=== PATIENT | male | born 1945 | race Caucasian/White ===

== ENCOUNTER → 2016-07-29 | Outpatient (CLI) | payer OTHER ==
[~2016-07-29] MED LIST: ALPR0.25 PO; AZEL0.05; BESI0.6S OU; DOXA4TAB2 PO; FLOM5CAP PO; FLUTISP; GABA-279 PO; LEVO125T3 PO; NORT25CA2 PO; OMEP20TA PO; OXYB5TA PO; PREDOPD OD; PROL0.072 OU; REST0.05 OU; TAMS0.4C2 PO; VITA-112 PO; VITA250L PO; prednisone OU
--- NOTE | 2016-07-29 14:44 | REP ---
Clinical: Preoperative assessment. Benign prostatic hypertrophy. Comparison: 10/01/2007 . Technique: PA and lateral. Findings: The mediastinum and cardiac silhouette are normal. The lung santa are clear and without acute consolidation, effusion, or pneumothorax. The skeletal structures are intact and normal. Impression: 1. No acute cardiopulmonary process. Signed by Hugo Anglin MD 07/29/2016 02:35 P
[2016-07-29 17:23] LABS: MEAN CORPUSCULAR HEMOGLOBIN 30.3 pg (27.0-33.0); MEAN CORPUSCULAR VOLUME 86.6 fl (80.0-96.0); RED CELL DISTRIBUTION WIDTH 13.3 % (11.5-14.5); WHITE BLOOD COUNT 6.8 K/mm3 (4.0-10.0)
[2016-07-29 17:48] LABS: INR 0.98
[2016-07-29 18:38] LABS: ANION GAP 8 MEQ/L (8-16); BLOOD UREA NITROGEN 18 MG/DL (7-18); CALCIUM LEVEL 9.7 MG/DL (8.8-10.2); CARBON DIOXIDE LEVEL 30 MEQ/L (21-32); CHLORIDE LEVEL 104 MEQ/L (98-107); CREATININE FOR GFR 1.07 MG/DL (0.70-1.30); GLOMERULAR FILTRATION RATE > 60.0 (>49); GLUCOSE, FASTING 85 MG/DL (80-110); SODIUM LEVEL 142 MEQ/L (136-145)
== END ==
LOC: M SMT 13:34
PROVIDERS: ATTEND Urology
DX: Z01.818 Encounter for other preprocedural examination (principal); N40.1 Benign prostatic hyperplasia with lower urinary tract symptoms

== ENCOUNTER → 2016-08-06 | Day surgery (SDC) | payer OTHER ==
[~2016-08-06] VITALS: Ht 182.9 cm; Wt 104.3 kg
[~2016-08-06] MED LIST changes: +ACETAMINOPHEN TAB 650MG DOSE (2X325MG) PO PRN; +FUROSEMIDE 100 MG/10 ML VIAL (J1940) As Ordered ONE; +LIDOCAINE 2% INJ 100 MG/5 ML SDV (FOR ANES.) As Ordered ONE; +LR 1,000 ML IV SCH; +MIDAZOLAM INJ 2 MG/2 ML VIAL (J2250) As Ordered ONE; +ONDANSETRON 4MG/2ML VIAL (J2405) As Ordered ONE; +ONDANSETRON 4MG/2ML VIAL (J2405) IV PRN; +PERCOCET 5MG/325MG TAB As Ordered ONE; +PHENYLephrine HCL 500 MCG/5 ML (100MCG/ML) SYRINGE (J2370) As Ordered ONE; +PROPOFOL 200 MG/20 ML VIAL As Ordered ONE; +SEVOFLURANE INHAL SOLN 250 ML BTL As Ordered ONE; +dexameTHASONE 4 MG/ML 1ML VIAL (J1100) As Ordered ONE; +ePHEDrine SULFATE 25 MG/5 ML(5MG/ML) SYRINGE As Ordered ONE; +fentaNYL 100 MCG/2 ML INJECTION (J3010) IV PRN; +fentaNYL 250 MCG/5 ML INJECTION (J3010) As Ordered ONE; +oxyBUTYnin 5 MG TAB PO PRN
[2016-08-06] MEDS: PERCOCET 5MG/325MG TAB PO PRN ×2 (18:48→19:21)
[2016-08-06 21:50] VITALS: BP 143/89
--- NOTE | 2016-08-07 09:47 | RO ---
DATE OF PROCEDURE: 08/06/2016 PREPROCEDURE DIAGNOSIS: Benign prostatic hyperplasia with urinary retention. POSTPROCEDURE DIAGNOSIS: Benign prostatic hyperplasia with urinary retention. PROCEDURE: Cystoscopy, button transurethral electrovaporization of the prostate. SURGEON: Sterling Black MD HAND SCUDDER: None. ANESTHESIA: General. OPERATIVE INDICATIONS: This is a 70-year-old male with benign prostatic hyperplasia with urinary retention. He has failed medical therapy and therefore it was recommended he be brought to the operating room today for the above listed procedure. DESCRIPTION OF PROCEDURE: The patient brought to the operating room and general anesthesia was induced. Prophylactic antibiotics were infused. He was then placed in a dorsal lithotomy position and prepped and draped in the usual sterile fashion. At this point, a resectoscope was inserted into the urethral meatus and advanced to the bladder using the visual obturator. At this point, the bladder was examined and of note, ureteral orifices were not close to the bladder neck. I also made note of the location of verumontanum. Also of note, the patient had trilobar benign prostatic hyperplasia with a prominent median lobe. At this point, I began vaporizing hyperplastic tissue beginning first on the median lobe and then circumferentially at the bladder neck. I then continued to vaporize hyperplastic tissue in both lateral lobes and kept doing this until there was a clear channel established. Throughout the procedure I tried not to vaporize too close to the ureteral orifices or distal to the verumontanum. Once a clear channel was established, hemostasis was obtained using the coagulation current. Once hemostasis appeared to be good, this marked conclusion of the procedure. At this point, the button resectoscope was removed and an #18 [place] Abbott catheter was inserted into the bladder. The balloon was filled with 15 mL of sterile water and urine drained clear at the end of the procedure. The catheter was then connected to gravity drainage and this marked conclusion of the procedure. The patient was then taken out of dorsal lithotomy position, awakened from anesthesia and transported to the recovery room in stable condition. Estimated blood loss: 25 mL. Complications: None. Specimens: None. Plan: The patient will be discharged home with a catheter in place. He will followup in the clinic next week for catheter removal and voiding trial.
== END | disposition home or self-care (01) ==
LOC: M SDC 10:46
PROVIDERS: ATTEND Urology
DX: N40.1 Benign prostatic hyperplasia with lower urinary tract symptoms (principal); I12.9 Hypertensive chronic kidney disease with stage 1 through stage 4 chronic kidney disease, or unspecified chronic kidney disease; K21.9 Gastro-esophageal reflux disease without esophagitis; K44.9 Diaphragmatic hernia without obstruction or gangrene; G25.81 Restless legs syndrome; K76.0 Fatty (change of) liver, not elsewhere classified; E08.40 Diabetes mellitus due to underlying condition with diabetic neuropathy, unspecified; F41.9 Anxiety disorder, unspecified; E78.5 Hyperlipidemia, unspecified; K64.8 Other hemorrhoids; J30.9 Allergic rhinitis, unspecified; H93.19 Tinnitus, unspecified ear; K57.32 Diverticulitis of large intestine without perforation or abscess without bleeding; M12.9 Arthropathy, unspecified; N18.2 Chronic kidney disease, stage 2 (mild); E06.3 Autoimmune thyroiditis; Z79.899 Other long term (current) drug therapy; Z87.442 Personal history of urinary calculi; Z96.1 Presence of intraocular lens
CPT/HCPCS: 52601; J0690; J1100; J1940; J2250; J2370; J2405; J3010

== ENCOUNTER → 2016-09-03 | Outpatient (CLI) | payer OTHER ==
[~2016-09-03] MED LIST changes: -ACETAMINOPHEN TAB 650MG DOSE (2X325MG) PO PRN; -FUROSEMIDE 100 MG/10 ML VIAL (J1940) As Ordered ONE; -LIDOCAINE 2% INJ 100 MG/5 ML SDV (FOR ANES.) As Ordered ONE; -LR 1,000 ML IV SCH; -MIDAZOLAM INJ 2 MG/2 ML VIAL (J2250) As Ordered ONE; -ONDANSETRON 4MG/2ML VIAL (J2405) As Ordered ONE; -ONDANSETRON 4MG/2ML VIAL (J2405) IV PRN; -PERCOCET 5MG/325MG TAB As Ordered ONE; -PHENYLephrine HCL 500 MCG/5 ML (100MCG/ML) SYRINGE (J2370) As Ordered ONE; -PROPOFOL 200 MG/20 ML VIAL As Ordered ONE; -SEVOFLURANE INHAL SOLN 250 ML BTL As Ordered ONE; -dexameTHASONE 4 MG/ML 1ML VIAL (J1100) As Ordered ONE; -ePHEDrine SULFATE 25 MG/5 ML(5MG/ML) SYRINGE As Ordered ONE; -fentaNYL 100 MCG/2 ML INJECTION (J3010) IV PRN; -fentaNYL 250 MCG/5 ML INJECTION (J3010) As Ordered ONE; -oxyBUTYnin 5 MG TAB PO PRN
--- NOTE | 2016-09-04 16:53 | SLEEPHOME ---
DATE OF PROCEDURE: 09/03/2016 ORDERED BY: Dr. Negron Diagnostic home sleep testing was performed due to concern for the obstructive sleep apnea syndrome. For testing, a NOX-T3 respiratory monitoring device was used. Continuous record was made of pulse, oxygen saturation, air flow, chest and abdominal strain and body position. 9 hours and 59 minutes of data were reviewed. Of these, 9 hours and 10 minutes were marked as time in bed. During the interval marked time in bed, there were 288 respiratory events identified of 10 seconds in duration or greater. The events were primarily obstructive but significant mixed and central apneas were also seen. Baseline pulse rate 59 beats per minute. Pulse rate ranged 47 to 102. Baseline oxygen saturation 90%. Lowest oxygen saturation 78%. Testing was performed in both the supine and nonsupine positions. IMPRESSION: Severe, possibly complex obstructive sleep apnea syndrome is suggested based on repetitive respiratory events with oxygen desaturations to 78% and a respiratory event index of 31.4. RECOMMENDATION: The patient should be referred for formal sleep evaluation and in laboratory pressure titration.
== END ==
LOC: M SLEEP HO 09:59
PROVIDERS: ATTEND Family Medicine
DX: G47.33 Obstructive sleep apnea (adult) (pediatric) (principal)

== ENCOUNTER → 2016-10-08 | Outpatient (REF) | payer OTHER | LOC: M SMT 13:03 | PROVIDERS: ATTEND Nurse Practitioner Family | DX: R35.0 Frequency of micturition (principal) ==

== ENCOUNTER → 2016-10-10 | Outpatient (REF) | payer OTHER ==
[2016-10-10 14:17] LABS: COMPLEMENT C4 23.8 MG/DL (10-40); IMMUNOGLOBULIN E 33.4 IU/ML (<100); IMMUNOGLOBULIN M 41.2 MG/DL (40-230)
== END ==
LOC: M LABDRAWP 12:59
PROVIDERS: ATTEND Allergy & Immunology
DX: R05 Cough (principal); H10.45 Other chronic allergic conjunctivitis; J30.89 Other allergic rhinitis

== ENCOUNTER → 2016-10-10 | Outpatient (REF) | payer OTHER | LOC: M SFHCPLAZ 09:34 | PROVIDERS: ATTEND Family Medicine | DX: N40.1 Benign prostatic hyperplasia with lower urinary tract symptoms (principal); N18.2 Chronic kidney disease, stage 2 (mild) ==

== ENCOUNTER → 2016-11-07 | Outpatient (CLI) | payer MEDICARE, OTHER ==
--- NOTE | 2016-11-17 08:26 | SLEEPCENT ---
DATE OF PROCEDURE: 11/07/2016 REQUESTING PROVIDER: Faye Acevedo NP INTERPRETATION: Nocturnal polysomnography was performed for the titration of pressure therapy in this patient with a clinical diagnosis of obstructive sleep apnea syndrome, supported by home testing revealing a respiratory event index of 31. For testing, the patient was fit with a ResMed Quattro full face mask of medium size, 5 cm of water pressure were applied to the circuit and the lights were extinguished. 7 hours and 29 minutes of data were reviewed. There were 332 minutes of sleep identified. Sleep latency was prolonged at 70 minutes. Rapid eye movement (REM) latency was short at 42 minutes. Sleep architecture was good with four REM periods appreciated. Overall sleep efficiency was 74%. Electrocardiogram (EKG) showed a sinus rhythm with an average heart rate of 48 beats per minute. Electroencephalogram (EEG) showed reasonably normal waveforms for awake and sleep. Respiratory events were fully palliated with a continuous positive airway pressure (CPAP) to a pressure of +9. Some limb activity was noted. Limb movement arousals occurred only 3.3 times per hour. IMPRESSION: 1. Obstructive sleep apnea syndrome (G47.33). RECOMMENDATIONS: Nightly use of pressure therapy at 9 cm of water.
== END ==
LOC: M SLEEP 20:06
PROVIDERS: ATTEND Nurse Practitioner Adult Health
DX: G47.33 Obstructive sleep apnea (adult) (pediatric) (principal)

== ENCOUNTER → 2017-01-26 | Outpatient (REF) | payer OTHER ==
[~2017-01-26] MED LIST changes: -LEVO125T3 PO; +LEVO125T4 PO; -OXYB5TA PO; +OXYB5TAB10 PO
[2017-01-26 12:19] LABS: ALBUMIN 3.6 GM/DL (3.2-5.2); ALKALINE PHOSPHATASE 69 U/L (45-117); ALT/SGPT 24 U/L (12-78); ANION GAP 7 MEQ/L (8-16); AST/SGOT 34 U/L (15-37); BILIRUBIN,TOTAL 1.5 MG/DL (0.2-1.0); BLOOD UREA NITROGEN 15 MG/DL (7-18); CALCIUM LEVEL 8.7 MG/DL (8.8-10.2); CARBON DIOXIDE LEVEL 29 MEQ/L (21-32); CHLORIDE LEVEL 108 MEQ/L (98-107); CHOLESTEROL LEVEL 158 MG/DL (<200); CREATININE FOR GFR 1.01 MG/DL (0.70-1.30); FREE T4 1.26 NG/DL (0.76-1.46); GLOMERULAR FILTRATION RATE > 60.0 (>42); GLUCOSE, FASTING 97 MG/DL (83-110); POTASSIUM SERUM 4.2 MEQ/L (3.5-5.1); SODIUM LEVEL 144 MEQ/L (136-145); TOTAL PROTEIN 7.2 GM/DL (6.4-8.2); TRIGLYCERIDES LEVEL 204 MG/DL (<150)
== END ==
LOC: M SFHCPLAZ 08:19
PROVIDERS: ATTEND Family Medicine
DX: N18.2 Chronic kidney disease, stage 2 (mild) (principal); E78.5 Hyperlipidemia, unspecified; E03.9 Hypothyroidism, unspecified

== ENCOUNTER → 2017-03-19 | Outpatient (REF) | payer OTHER | LOC: M SMT 12:52 | PROVIDERS: ATTEND Nurse Practitioner Women's Health | DX: N40.1 Benign prostatic hyperplasia with lower urinary tract symptoms (principal) ==

== ENCOUNTER → 2017-06-11 | Outpatient (REF) | payer OTHER ==
[2017-06-11 12:11] LABS: BASO # 0.1 10^3/uL (0.0-0.2); BASO % 0.7 % (0.0-1.0); EOS # 0.2 10^3/uL (0.0-0.50); EOS % 2.4 % (0.0-3.0); HEMATOCRIT 44.7 % (42.0-52.0); HEMOGLOBIN 15.2 g/dl (14.0-18.0); IMMATURE GRANULOCYTE % 0.6 % (0-0); LYMPH # 1.4 10^3/uL (1.5-4.5); LYMPH % 20.2 % (24.0-44.0); MEAN CORPUSCULAR HEMOGLOBIN 29.7 pg (27.0-33.0); MEAN CORPUSCULAR VOLUME 87.5 fl (80.0-96.0); MONO # 0.4 10^3/uL (0.0-0.8); MONO % 5.7 % (0.0-5.0); NEUTROPHILS % 70.4 % (36.0-66.0); PLATELET COUNT, AUTOMATED 180 10^3/uL (150-450); RED BLOOD COUNT 5.11 10^6/uL (4.30-6.10); WHITE BLOOD COUNT 7.1 10^3/uL (4.0-10.0)
[2017-06-11 12:18] LABS: ALBUMIN 3.7 GM/DL (3.2-5.2); ALBUMIN/GLOBULIN RATIO 1.06 (1.00-1.93); ALKALINE PHOSPHATASE 84 U/L (45-117); ALT/SGPT 27 U/L (12-78); ANION GAP 5 MEQ/L (8-16); AST/SGOT 35 U/L (7-37); BILIRUBIN,TOTAL 1.5 MG/DL (0.2-1.0); BLOOD UREA NITROGEN 18 MG/DL (7-18); CALCIUM LEVEL 8.8 MG/DL (8.8-10.2); CARBON DIOXIDE LEVEL 31 MEQ/L (21-32); CHLORIDE LEVEL 107 MEQ/L (98-107); CREATININE FOR GFR 1.03 MG/DL (0.70-1.30); FERRITIN 118 NG/ML (26-388); GLOMERULAR FILTRATION RATE > 60.0 (>42); GLUCOSE, FASTING 97 MG/DL (83-110); IRON (FE) 124 UG/DL (65-175); PERCENT SATURATION 33.1 % (19.7-50.0); POTASSIUM SERUM 4.5 MEQ/L (3.5-5.1); SODIUM LEVEL 143 MEQ/L (136-145); TOTAL IRON BINDING CAPACITY 375 UG/DL (250-450); TOTAL PROTEIN 7.2 GM/DL (6.4-8.2)
[2017-06-11 12:20] LABS: ESTIMATED AVERAGE GLUCOSE 105 MG/DL (60-110); HEMOGLOBIN A1c 5.3 %
[2017-06-11 12:24] LABS: TOTAL 25(OH) VITAMIN D 32.5 NG/ML (30.0-100.0); VITAMIN B12 LEVEL 552 PG/ML (247-911)
== END ==
LOC: M SFHCPLAZ 08:58
DX: E53.8 Deficiency of other specified B group vitamins (principal); E55.9 Vitamin D deficiency, unspecified; R73.01 Impaired fasting glucose
CPT/HCPCS: 83550

== ENCOUNTER → 2017-08-05 | Outpatient (REF) | payer OTHER ==
[2017-08-05 13:07] LABS: BASO % 0.6 % (0.0-1.0); EOS # 0.1 10^3/uL (0.0-0.50); HEMATOCRIT 44.1 % (42.0-52.0); HEMOGLOBIN 15.3 g/dl (14.0-18.0); IMMATURE GRANULOCYTE % 0.5 % (0-3.0); LYMPH # 1.6 10^3/uL (1.5-4.5); MEAN CORPUSCULAR HEMOGLOBIN 29.8 pg (27.0-33.0); MEAN CORPUSCULAR HGB CONC 34.7 g/dl (32.0-36.5); MONO # 0.4 10^3/uL (0.0-0.8); MONO % 5.8 % (0.0-5.0); NEUTROPHILS # 4.4 10^3/uL (1.8-7.7); NEUTROPHILS % 67.1 % (36.0-66.0); PLATELET COUNT, AUTOMATED 143 10^3/uL (150-450); RED BLOOD COUNT 5.13 10^6/uL (4.30-6.10); RED CELL DISTRIBUTION WIDTH 13.7 % (11.5-14.5); WHITE BLOOD COUNT 6.5 10^3/uL (4.0-10.0)
[2017-08-05 13:28] LABS: ALBUMIN 3.7 GM/DL (3.2-5.2); ALBUMIN/GLOBULIN RATIO 1.06 (1.00-1.93); ALKALINE PHOSPHATASE 79 U/L (45-117); ALT/SGPT 24 U/L (12-78); ANION GAP 5 MEQ/L (8-16); AST/SGOT 35 U/L (7-37); BILIRUBIN,TOTAL 1.9 MG/DL (0.2-1.0); BLOOD UREA NITROGEN 17 MG/DL (7-18); CALCIUM LEVEL 9.1 MG/DL (8.8-10.2); CARBON DIOXIDE LEVEL 31 MEQ/L (21-32); CHLORIDE LEVEL 107 MEQ/L (98-107); CREATININE FOR GFR 0.98 MG/DL (0.70-1.30); GLOMERULAR FILTRATION RATE > 60.0 (>42); GLUCOSE, FASTING 94 MG/DL (70-100); LIPASE 166 U/L (73-393); POTASSIUM SERUM 4.3 MEQ/L (3.5-5.1); SODIUM LEVEL 143 MEQ/L (136-145); TOTAL PROTEIN 7.2 GM/DL (6.4-8.2)
[2017-08-06 10:25] LABS: H PYLORI SERUM QUANT IgG ABY 0.72 (0.00-0.79)
== END ==
LOC: M SFHCPLAZ 09:22
DX: R10.13 Epigastric pain (principal)
CPT/HCPCS: 83690

== ENCOUNTER → 2017-10-26 | Outpatient (REF) | payer OTHER ==
[2017-10-26 12:25] LABS: ESTIMATED AVERAGE GLUCOSE 105 MG/DL (60-110); HEMOGLOBIN A1c 5.3 %
[2017-10-26 12:38] LABS: ALBUMIN 3.7 GM/DL (3.2-5.2); ALBUMIN/GLOBULIN RATIO 1.06 (1.00-1.93); ALKALINE PHOSPHATASE 79 U/L (45-117); ALT/SGPT 27 U/L (12-78); ANION GAP 5 MEQ/L (8-16); AST/SGOT 33 U/L (7-37); BILIRUBIN,TOTAL 1.3 MG/DL (0.2-1.0); BLOOD UREA NITROGEN 19 MG/DL (7-18); C REACTIVE PROTEIN QUANTITATIV 0.37 MG/DL (0.00-0.30); CALCIUM LEVEL 8.8 MG/DL (8.8-10.2); CARBON DIOXIDE LEVEL 31 MEQ/L (21-32); CHLORIDE LEVEL 108 MEQ/L (98-107); CHOLESTEROL LEVEL 143 MG/DL (<200); CHOLESTEROL RISK RATIO 3.972 (<5); CPK CREATINE PHOSPHOKINASE 74 U/L (39-308); CREATININE FOR GFR 1.01 MG/DL (0.70-1.30); FREE T4 1.05 NG/DL (0.76-1.46); GLOMERULAR FILTRATION RATE > 60.0 (>42); GLUCOSE, FASTING 92 MG/DL (70-100); HDL CHOLESTEROL 36 MG/DL (>40); NON-HDL-C 107 MG/DL; POTASSIUM SERUM 4.4 MEQ/L (3.5-5.1); SODIUM LEVEL 144 MEQ/L (136-145); THYROID STIMULATING HORMONE 0.631 uIU/ML (0.358-3.740); TOTAL PROTEIN 7.2 GM/DL (6.4-8.2); TRIGLYCERIDES LEVEL 275 MG/DL (<150)
[2017-10-27 14:11] LABS: INSULIN LEVEL 14.6 uIU/mL (2.6-24.9)
== END ==
LOC: M SFHCPLAZ 09:21
DX: E03.9 Hypothyroidism, unspecified (principal); R73.01 Impaired fasting glucose

== ENCOUNTER → 2018-04-06 | Outpatient (REF) | payer OTHER ==
[2018-04-06 11:41] LABS: BASO % 0.7 % (0.0-1.0); EOS # 0.2 10^3/uL (0.0-0.50); EOS % 3.3 % (0.0-3.0); HEMATOCRIT 43.5 % (42.0-52.0); HEMOGLOBIN 14.6 g/dl (13.5-17.5); IMMATURE GRANULOCYTE % 0.3 % (0-3.0); LYMPH # 1.7 10^3/uL (1.5-4.5); LYMPH % 29.5 % (24.0-44.0); MEAN CORPUSCULAR HEMOGLOBIN 30.2 pg (27.0-33.0); MEAN CORPUSCULAR HGB CONC 33.6 g/dl (32.0-36.5); MEAN CORPUSCULAR VOLUME 89.9 fl (80.0-96.0); MONO # 0.4 10^3/uL (0.0-0.8); MONO % 6.5 % (0.0-5.0); NEUTROPHILS # 3.4 10^3/uL (1.8-7.7); NEUTROPHILS % 59.7 % (36.0-66.0); PLATELET COUNT, AUTOMATED 162 10^3/uL (150-450); RED BLOOD COUNT 4.84 10^6/uL (4.30-6.10); RED CELL DISTRIBUTION WIDTH 14.2 % (11.5-14.5); RETIC HEMOGLOBIN EQUIVALENT 35.1 pg (24-36); RETICULOCYTE # 116.6 10^9/L (17-77); RETICULOCYTE % 2.4 % (0.5-1.5); WHITE BLOOD COUNT 5.7 10^3/uL (4.0-10.0)
[2018-04-06 11:46] LABS: APPEARANCE, URINE HAZY (CLEAR); BACTERIA, URINE AUTO NEGATIVE (NEGATIVE); BILIRUBIN, URINE AUTO NEGATIVE (NEGATIVE); BLOOD, URINE BLOOD 1+ (NEGATIVE); COLOR, URINE YELLOW (YELLOW); GLUCOSE, URINE (UA) AUTO NEGATIVE (NEGATIVE); KETONE, URINE AUTO NEGATIVE (NEGATIVE); LEUKOCYTE ESTERASE, URINE AUTO 1+ (NEGATIVE); MUCUS, URINE SMALL (NEGATIVE); NITRITE, URINE AUTO NEGATIVE (NEGATIVE); PROTEIN, URINE AUTO NEGATIVE (NEGATIVE); RBC, URINE AUTO 2 /HPF (0-3); SPECIFIC GRAVITY URINE AUTO 1.024 (1.002-1.035); SQUAMOUS EPITHELIAL CELL UR AU 0 /HPF (0-6); WBC, URINE AUTO 25 /HPF (0-3)
[2018-04-06 12:04] LABS: ESTIMATED AVERAGE GLUCOSE 108 MG/DL (60-110); HEMOGLOBIN A1c 5.4 %
[2018-04-06 13:22] LABS: MALB URINE SIEMENS 51.9 MG/L; MAU/CREAT RATIO 18.1 MCG/MG (0.0-30.0)
== END ==
LOC: M SFHCPLAZ 08:56
DX: E53.8 Deficiency of other specified B group vitamins (principal); E03.9 Hypothyroidism, unspecified; R73.01 Impaired fasting glucose

== ENCOUNTER → 2018-08-17 | Outpatient (REF) | payer OTHER ==
[~2018-08-17] MED LIST changes: +FLOM0.4C39 PO; -FLOM5CAP PO; +GABA-1171 PO; -GABA-279 PO
== END ==
LOC: M SFHCPLAZ 13:21
PROVIDERS: ATTEND Nurse Practitioner Family
DX: R19.7 Diarrhea, unspecified (principal)

== ENCOUNTER → 2018-09-06 | Outpatient (REF) | payer OTHER ==
[2018-09-06 12:22] LABS: BASO # 0.1 10^3/uL (0.0-0.2); BASO % 0.8 % (0.0-1.0); EOS # 0.2 10^3/uL (0.0-0.50); EOS % 2.9 % (0.0-3.0); HEMOGLOBIN 14.4 g/dl (13.5-17.5); LYMPH # 1.4 10^3/uL (1.5-4.5); LYMPH % 23.3 % (24.0-44.0); MEAN CORPUSCULAR HEMOGLOBIN 29.5 pg (27.0-33.0); MEAN CORPUSCULAR HGB CONC 33.5 g/dl (32.0-36.5); MEAN CORPUSCULAR VOLUME 88.1 fl (80.0-96.0); MONO # 0.4 10^3/uL (0.0-0.8); MONO % 6.6 % (0.0-5.0); NEUTROPHILS # 3.9 10^3/uL (1.8-7.7); NEUTROPHILS % 65.9 % (36.0-66.0); PLATELET COUNT, AUTOMATED 158 10^3/uL (150-450); RED BLOOD COUNT 4.88 10^6/uL (4.30-6.10); WHITE BLOOD COUNT 5.9 10^3/uL (4.0-10.0)
[2018-09-06 12:45] LABS: ALBUMIN 3.7 GM/DL (3.2-5.2); ALT/SGPT 27 U/L (12-78); BILIRUBIN,TOTAL 1.4 MG/DL (0.2-1.0); BLOOD UREA NITROGEN 21 MG/DL (7-18); C REACTIVE PROTEIN QUANTITATIV < 0.30 MG/DL (0.00-0.30); CALCIUM LEVEL 8.9 MG/DL (8.8-10.2); CARBON DIOXIDE LEVEL 31 MEQ/L (21-32); CHLORIDE LEVEL 109 MEQ/L (98-107); CHOLESTEROL LEVEL 151 MG/DL (<200); CHOLESTEROL RISK RATIO 3.973 (<5); CREATININE FOR GFR 1.03 MG/DL (0.70-1.30); GLOMERULAR FILTRATION RATE > 60.0 (>42); GLUCOSE, FASTING 99 MG/DL (70-100); HDL CHOLESTEROL 38 MG/DL (>40); LDL CHOLESTEROL 77 MG/DL (<100); NON-HDL-C 113 MG/DL; POTASSIUM SERUM 4.4 MEQ/L (3.5-5.1); PTH INTACT 52.8 PG/ML (18.5-88.0); SODIUM LEVEL 144 MEQ/L (136-145); TOTAL 25(OH) VITAMIN D 27.2 NG/ML (30.0-100.0); TOTAL PROTEIN 7.2 GM/DL (6.4-8.2); TRIGLYCERIDES LEVEL 179 MG/DL (<150)
[2018-09-06 14:43] LABS: HEMOGLOBIN A1c 5.6 %
== END ==
LOC: M SFHCPLAZ 08:59
PROVIDERS: ATTEND Family Medicine
DX: N18.2 Chronic kidney disease, stage 2 (mild) (principal); R73.01 Impaired fasting glucose; Z12.5 Encounter for screening for malignant neoplasm of prostate; E55.9 Vitamin D deficiency, unspecified
CPT/HCPCS: 36415; 80053; 80061; 82306; 83036; 83970; 85025; 86140; G0103

== ENCOUNTER → 2018-11-22 | Outpatient (CLI) | payer OTHER ==
[~2018-11-22] MED LIST changes: +FLUT50SP12; -FLUTISP
--- NOTE | 2018-11-22 10:05 | REP ---
LEFT WRIST SERIES: Four views. HISTORY: Pain. FINDINGS: Four views of the left wrist demonstrate minimal spurring at the first carpometacarpal articulation. There is an accessory ossicle adjacent to the navicular multangular articulation. No acute fracture is seen. Overall mineralization pattern is normal. Study is otherwise unremarkable. IMPRESSION: Mild osteoarthritic changes. Accessory ossicle adjacent to the navicular multangular articulation. Electronically Signed by Mal Harden MD 11/22/2018 10:27 A
--- NOTE | 2018-11-22 10:05 | REP ---
LEFT HAND SERIES: Four views. HISTORY: Pain. FINDINGS: Four views of the left hand demonstrate overall normal mineralization. There is an accessory ossicle adjacent to the navicular multangular articulation. This is nonacute. Minimal osteoarthritis is seen at the 1st carpometacarpal and 1st IP joints. There is mild osteoarthritis at the DIP joints of all four fingers as well. IMPRESSION: Osteoarthritic changes. No acute bony abnormality. Electronically Signed by Mal Harden MD 11/22/2018 10:27 A
== END ==
LOC: M WUC 08:44
PROVIDERS: ATTEND Physician Assistant
DX: M19.042 Primary osteoarthritis, left hand (principal); M19.032 Primary osteoarthritis, left wrist; M25.542 Pain in joints of left hand

== ENCOUNTER 2018-11-23 14:11 | Emergency (ER) | payer OTHER ==
[~2018-11-23] VITALS: Ht 188 cm; Wt 84.1 kg
[2018-11-23 15:54] VITALS: BP 158/81
== END 2018-11-23 16:02 | disposition home or self-care (01) ==
LOC: M ED 14:11
DX: F43.0 Acute stress reaction (principal); E80.4 Gilbert syndrome; E78.5 Hyperlipidemia, unspecified; I10 Essential (primary) hypertension; N40.0 Benign prostatic hyperplasia without lower urinary tract symptoms; K21.9 Gastro-esophageal reflux disease without esophagitis; R10.13 Epigastric pain; E03.9 Hypothyroidism, unspecified; Z87.442 Personal history of urinary calculi; G25.81 Restless legs syndrome; Z87.891 Personal history of nicotine dependence; Z79.899 Other long term (current) drug therapy

== ENCOUNTER → 2018-11-29 | Outpatient (REF) | payer OTHER ==
[2018-11-29 14:10] LABS: APPEARANCE, URINE CLEAR (CLEAR); BACTERIA, URINE AUTO NEGATIVE (NEGATIVE); BILIRUBIN, URINE AUTO NEGATIVE (NEGATIVE); BLOOD, URINE BLOOD 1+ (NEGATIVE); COLOR, URINE YELLOW (YELLOW); GLUCOSE, URINE (UA) AUTO NEGATIVE (NEGATIVE); KETONE, URINE AUTO NEGATIVE (NEGATIVE); LEUKOCYTE ESTERASE, URINE AUTO TRACE (NEGATIVE); MUCUS, URINE SMALL (NEGATIVE); NITRITE, URINE AUTO NEGATIVE (NEGATIVE); PROTEIN, URINE AUTO NEGATIVE (NEGATIVE); RBC, URINE AUTO 2 /HPF (0-3); SPECIFIC GRAVITY URINE AUTO 1.019 (1.002-1.035); SQUAMOUS EPITHELIAL CELL UR AU 0 /HPF (0-6); WBC, URINE AUTO 3 /HPF (0-3)
== END ==
LOC: M SMT 13:31
PROVIDERS: ATTEND Nurse Practitioner Women's Health
DX: N13.2 Hydronephrosis with renal and ureteral calculous obstruction (principal)

== ENCOUNTER → 2019-02-10 | Outpatient (REF) | payer OTHER ==
[~2019-02-10] MED LIST changes: +AZEL1SPR3 NARES; +BRONCHW PO; +BUSP10TA PO; +CIPRODEX AD; +D 1010004 PO; +FLON1SPR NARES; +HYDR25TAB PO; +MECL1TAB31 PO; +OFLOSO; +OMEP-358 PO; -OMEP20TA PO; +OXYB-54 PO; +TELM1TAB33 PO
[2019-02-10 13:13] LABS: APPEARANCE, URINE CLOUDY (CLEAR); BACTERIA, URINE AUTO NEGATIVE (NEGATIVE); BILIRUBIN, URINE AUTO NEGATIVE (NEGATIVE); BLOOD, URINE BLOOD 3+ (NEGATIVE); COLOR, URINE YELLOW (YELLOW); GLUCOSE, URINE (UA) AUTO NEGATIVE (NEGATIVE); KETONE, URINE AUTO NEGATIVE (NEGATIVE); LEUKOCYTE ESTERASE, URINE AUTO 2+ (NEGATIVE); MUCUS, URINE SMALL (NEGATIVE); NITRITE, URINE AUTO NEGATIVE (NEGATIVE); PROTEIN, URINE AUTO 2+ mg/dL (NEGATIVE); RBC, URINE AUTO TNTC /HPF (0-3); SQUAMOUS EPITHELIAL CELL UR AU 0 /HPF (0-6); UROBILINOGEN, URINE AUTO 0.2 mg/dL (0.0-2.0); WBC, URINE AUTO 66 /HPF (0-3)
[2019-02-10 13:44] LABS: ALBUMIN 3.5 GM/DL (3.2-5.2); ALT/SGPT 21 U/L (12-78); BILIRUBIN,TOTAL 1.6 MG/DL (0.2-1.0); BLOOD UREA NITROGEN 21 MG/DL (7-18); CALCIUM LEVEL 9.1 MG/DL (8.8-10.2); CARBON DIOXIDE LEVEL 28 MEQ/L (21-32); CHLORIDE LEVEL 108 MEQ/L (98-107); CREATININE FOR GFR 1.12 MG/DL (0.70-1.30); FREE T4 1.16 NG/DL (0.76-1.46); GLOMERULAR FILTRATION RATE > 60.0 (>42); GLUCOSE, FASTING 97 MG/DL (70-100); SODIUM LEVEL 143 MEQ/L (136-145); THYROID STIMULATING HORMONE 0.536 uIU/ML (0.358-3.740); TOTAL PROTEIN 7.2 GM/DL (6.4-8.2)
[2019-02-10 14:12] LABS: MAU/CREAT RATIO 407.6 MCG/MG (0.0-30.0)
[2019-02-10 14:31] LABS: HEMOGLOBIN A1c 5.2 %
== END ==
LOC: M SFHCPLAZ 08:56
PROVIDERS: ATTEND Family Medicine
DX: R73.01 Impaired fasting glucose (principal); E03.9 Hypothyroidism, unspecified

== ENCOUNTER → 2019-02-17 | Outpatient (REF) | payer OTHER ==
[~2019-02-17] MED LIST changes: -AZEL1SPR3 NARES; -BRONCHW PO; -BUSP10TA PO; -CIPRODEX AD; -D 1010004 PO; -FLON1SPR NARES; -HYDR25TAB PO; -MECL1TAB31 PO; -OFLOSO; -OMEP-358 PO; +OMEP20TA PO; -OXYB-54 PO; -TELM1TAB33 PO
[2019-02-17 13:37] LABS: APPEARANCE, URINE CLEAR (CLEAR); BACTERIA, URINE AUTO NEGATIVE (NEGATIVE); BILIRUBIN, URINE AUTO NEGATIVE (NEGATIVE); BLOOD, URINE BLOOD 1+ (NEGATIVE); COLOR, URINE STRAW (YELLOW); GLUCOSE, URINE (UA) AUTO NEGATIVE (NEGATIVE); KETONE, URINE AUTO NEGATIVE (NEGATIVE); LEUKOCYTE ESTERASE, URINE AUTO NEGATIVE (NEGATIVE); MUCUS, URINE SMALL (NEGATIVE); NITRITE, URINE AUTO NEGATIVE (NEGATIVE); PROTEIN, URINE AUTO NEGATIVE (NEGATIVE); RBC, URINE AUTO 3 /HPF (0-3); SPECIFIC GRAVITY URINE AUTO 1.006 (1.002-1.035); SQUAMOUS EPITHELIAL CELL UR AU 0 /HPF (0-6); UROBILINOGEN, URINE AUTO 0.2 mg/dL (0.0-2.0); WBC, URINE AUTO 3 /HPF (0-3)
[2019-02-17 13:46] LABS: BASO # 0.1 10^3/uL (0.0-0.2); EOS # 0.1 10^3/uL (0.0-0.5); EOS % 2.3 % (0.0-3.0); LYMPH # 1.5 10^3/uL (1.5-5.0); LYMPH % 25.1 % (24.0-44.0); MEAN CORPUSCULAR HEMOGLOBIN 30.4 pg (27.0-33.0); MEAN CORPUSCULAR HGB CONC 34.1 g/dl (32.0-36.5); MEAN CORPUSCULAR VOLUME 88.9 fl (80.0-96.0); MONO # 0.3 10^3/uL (0.0-0.8); MONO % 5.7 % (0.0-5.0); NEUTROPHILS # 3.8 10^3/uL (1.5-8.5); NEUTROPHILS % 65.4 % (36.0-66.0); PLATELET COUNT, AUTOMATED 179 10^3/uL (150-450); RED BLOOD COUNT 4.61 10^6/uL (4.30-6.10); WHITE BLOOD COUNT 5.8 10^3/uL (4.0-10.0)
[2019-02-17 14:05] LABS: ALBUMIN 3.6 GM/DL (3.2-5.2); ALT/SGPT 22 U/L (12-78); BILIRUBIN,TOTAL 1.2 MG/DL (0.2-1.0); BLOOD UREA NITROGEN 14 MG/DL (7-18); CALCIUM LEVEL 9.1 MG/DL (8.8-10.2); CARBON DIOXIDE LEVEL 31 MEQ/L (21-32); CHLORIDE LEVEL 105 MEQ/L (98-107); CREATININE FOR GFR 1.02 MG/DL (0.70-1.30); GLOMERULAR FILTRATION RATE > 60.0 (>42); GLUCOSE, FASTING 81 MG/DL (70-100); POTASSIUM SERUM 4.1 MEQ/L (3.5-5.1); SODIUM LEVEL 143 MEQ/L (136-145); TOTAL PROTEIN 7.1 GM/DL (6.4-8.2)
== END ==
LOC: M SFHCPLAZ 11:53
PROVIDERS: ATTEND Family Medicine
DX: N20.0 Calculus of kidney (principal)

== ENCOUNTER 2019-06-13 16:05 | Emergency (ER) | payer OTHER ==
[~2019-06-13] VITALS: Ht 182.9 cm; Wt 100.5 kg
[~2019-06-13 16:05] MED LIST changes: +BUSP10TA PO; +CIPRODEX AD; +OFLOSO; +OMEP-358 PO; -OMEP20TA PO; +TELM1TAB33
[2019-06-13] MEDS ORDERED: AZEL1SPR3 (17:09)
[2019-06-13 17:14] LABS: BASO # 0.1 10^3/uL (0.0-0.2); BASO % 0.6 % (0.0-1.0); EOS # 0.1 10^3/uL (0.0-0.5); HEMATOCRIT 45.8 % (42.0-52.0); HEMOGLOBIN 15.4 g/dl (13.5-17.5); LYMPH # 1.2 10^3/uL (1.5-5.0); LYMPH % 14.2 % (24.0-44.0); MEAN CORPUSCULAR HEMOGLOBIN 29.1 pg (27.0-33.0); MEAN CORPUSCULAR HGB CONC 33.6 g/dl (32.0-36.5); MEAN CORPUSCULAR VOLUME 86.6 fl (80.0-96.0); MONO # 0.6 10^3/uL (0.0-0.8); MONO % 6.7 % (0.0-5.0); NEUTROPHILS # 6.4 10^3/uL (1.5-8.5); NEUTROPHILS % 77.3 % (36.0-66.0); PLATELET COUNT, AUTOMATED 173 10^3/uL (150-450); RED BLOOD COUNT 5.29 10^6/uL (4.30-6.10); WHITE BLOOD COUNT 8.3 10^3/uL (4.0-10.0)
[2019-06-13 17:38] LABS: ALBUMIN 3.8 GM/DL (3.2-5.2); ALT/SGPT 24 U/L (12-78); BILIRUBIN,TOTAL 1.4 MG/DL (0.2-1.0); BLOOD UREA NITROGEN 15 MG/DL (7-18); CALCIUM LEVEL 9.8 MG/DL (8.8-10.2); CARBON DIOXIDE LEVEL 29 MEQ/L (21-32); CHLORIDE LEVEL 105 MEQ/L (98-107); CREATININE FOR GFR 1.12 MG/DL (0.70-1.30); GLOMERULAR FILTRATION RATE > 60.0 (>42); GLUCOSE, FASTING 98 MG/DL (70-100); SODIUM LEVEL 143 MEQ/L (136-145); TOTAL PROTEIN 8.1 GM/DL (6.4-8.2)
--- NOTE | 2019-06-13 17:43 | REPVR ---
PROCEDURE INFORMATION: Exam: CT Head Without Contrast Exam date and time: 06/13/2019 5:17 PM Age: 73 years old Clinical indication: Pain; Headache; Additional info: Dizziness TECHNIQUE: Imaging protocol: Computed tomography of the head without contrast. Radiation optimization: All CT scans at this facility use at least one of these dose optimization techniques: automated exposure control; mA and/or kV adjustment per patient size (includes targeted exams where dose is matched to clinical indication); or iterative reconstruction. COMPARISON: No relevant prior studies available. FINDINGS: Brain: There is parenchymal volume loss. Mild white matter changes are demonstrated in the subcortical, centrum semiovale and periventricular white matter consistent with age related small vessel white matter angiopathic gliosis. Ventricles: The degree of ventricular dilatation is normal for age and/or degree of atrophy present. Bones/joints: Unremarkable. No acute fracture. Sinuses: Visualized sinuses are unremarkable. No fluid levels. Mastoid air cells: Visualized mastoid air cells are well aerated. Soft tissues: Unremarkable. IMPRESSION: 1. There is parenchymal volume loss. Mild white matter changes are demonstrated in the subcortical, centrum semiovale and periventricular white matter consistent with age related small vessel white matter angiopathic gliosis. 2. The degree of ventricular dilatation is normal for age and/or degree of atrophy present. 3. No acute findings. Electronically signed by: James Stanford On 06/13/2019 17:42:48 PM
[2019-06-13 17:58] LABS: CK-MB VALUE MASS < 1.0 NG/ML (<3.6); CPK CREATINE PHOSPHOKINASE 54 U/L (39-308); MB/CK RELATIVE INDEX 1.85 (< OR =4); TROPONIN I < 0.02 NG/ML (< 0.10)
--- NOTE | 2019-06-13 20:35 | REPVR ---
PROCEDURE INFORMATION: Exam: MR Head Without Contrast Exam date and time: 06/13/2019 8:21 PM Age: 73 years old Clinical indication: Patient HX: Dizziness and high blood pressure TECHNIQUE: Imaging protocol: MR of the head without contrast. COMPARISON: CT Head without contrast 06/13/2019 5:22 PM FINDINGS: Brain: Multiple foci of T2 lengthening are demonstrated in the periventricular and centrum semiovale white matter. Findings are consistent with age-related small vessel gliosis. Ventricles: Normal. No ventriculomegaly. Bones/joints: Unremarkable. Soft tissues: Unremarkable. Sinuses: Normal as visualized. No acute sinusitis. Mastoid air cells: Normal as visualized. No mastoid effusion. Orbits: Unremarkable. IMPRESSION: 1. Multiple foci of T2 lengthening are demonstrated in the periventricular and centrum semiovale white matter. Findings are consistent with age-related small vessel gliosis. 2. No acute findings. Electronically signed by: James Stanford On 06/13/2019 20:30:10 PM
--- NOTE | 2019-06-13 20:36 | REPVR ---
PROCEDURE INFORMATION: Exam: MR Angiogram Head Without Contrast, Arteries Exam date and time: 06/13/2019 8:21 PM Age: 73 years old Clinical indication: Dizziness and giddiness and other: High BP; Patient HX: Dizziness and high blood pressure TECHNIQUE: Imaging protocol: MR angiogram head without contrast. Exam focused on the arteries. 3D rendering: MIP and/or 3D reconstructed images were created by the technologist. COMPARISON: CT Head without contrast 06/13/2019 5:22 PM FINDINGS: Right internal carotid artery: Unremarkable. Intracranial segment is patent with no significant stenosis. No aneurysm. Right anterior cerebral artery: Unremarkable. No occlusion or significant stenosis. No aneurysm. Right middle cerebral artery: Unremarkable. No occlusion or significant stenosis. No aneurysm. Right posterior cerebral artery: Unremarkable. No occlusion or significant stenosis. No aneurysm. Right vertebral artery: Unremarkable. No occlusion or significant stenosis. No aneurysm. Left internal carotid artery: Unremarkable. Intracranial segment is patent with no significant stenosis. No aneurysm. Left anterior cerebral artery: Unremarkable. No occlusion or significant stenosis. No aneurysm. Left middle cerebral artery: Unremarkable. No occlusion or significant stenosis. No aneurysm. 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 Left vertebral artery: Unremarkable. No occlusion or significant stenosis. No aneurysm. Basilar artery: Tortuous basilar artery. IMPRESSION: 1. 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 2. No acute findings. Electronically signed by: James Stanford On 06/13/2019 20:33:00 PM
[2019-06-13] MEDS ORDERED: MECLIZINE 25 MG TABLET PO ONE (21:00)
[2019-06-13] MEDS ORDERED: hydroCHLOROthiazide 25 MG TAB PO ONE (21:15)
[2019-06-13 21:28] LABS: THYROID STIMULATING HORMONE 0.528 uIU/ML (0.358-3.740)
[2019-06-13] MEDS ORDERED: HYDR25TAB PO (23:02)
[2019-06-13] MEDS ORDERED: MECL-68 PO (23:02)
[2019-06-13 23:22] VITALS: BP 158/88
--- NOTE | 2019-06-14 13:03 | ED PDOC ---
Post-Departure Follow-Up dr allison faxed formal report of mri brain for fu Sheila Angulo MD Jun 14, 2019 13:03
--- NOTE | 2019-06-15 07:46 | ECGEPIP ---
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
== END 2019-06-13 23:24 | disposition home or self-care (01) ==
LOC: EDBD 16:05 → M ED 16:05
DX: H81.4 Vertigo of central origin (principal); I10 Essential (primary) hypertension; E03.9 Hypothyroidism, unspecified; Z79.899 Other long term (current) drug therapy

== ENCOUNTER 2019-06-21 12:23 | Observation (INO) | payer OTHER ==
[~2019-06-21] VITALS: Ht 182.9 cm; Wt 94.0 kg
[~2019-06-21 12:23] MED LIST changes: +AZEL1SPR3 NARES; +HYDR25TAB PO; +MECL1TAB31 PO; -TELM1TAB33; +TELM1TAB33 PO
[2019-06-21 13:20] LABS: BASO # 0.1 10^3/uL (0.0-0.2); BASO % 0.9 % (0.0-1.0); EOS # 0.1 10^3/uL (0.0-0.5); EOS % 1.3 % (0.0-3.0); HEMATOCRIT 45.5 % (42.0-52.0); HEMOGLOBIN 15.7 g/dl (13.5-17.5); LYMPH # 1.2 10^3/uL (1.5-5.0); LYMPH % 17.5 % (24.0-44.0); MEAN CORPUSCULAR HEMOGLOBIN 29.3 pg (27.0-33.0); MEAN CORPUSCULAR HGB CONC 34.5 g/dl (32.0-36.5); MEAN CORPUSCULAR VOLUME 84.9 fl (80.0-96.0); MONO # 0.6 10^3/uL (0.0-0.8); MONO % 8.1 % (0.0-5.0); NEUTROPHILS # 4.9 10^3/uL (1.5-8.5); NEUTROPHILS % 71.5 % (36.0-66.0); PLATELET COUNT, AUTOMATED 180 10^3/uL (150-450); RED BLOOD COUNT 5.36 10^6/uL (4.30-6.10); WHITE BLOOD COUNT 6.8 10^3/uL (4.0-10.0)
[2019-06-21 13:50] LABS: ALBUMIN 4.1 GM/DL (3.2-5.2); ALT/SGPT 26 U/L (12-78); BILIRUBIN,TOTAL 1.5 MG/DL (0.2-1.0); BLOOD UREA NITROGEN 17 MG/DL (7-18); CALCIUM LEVEL 10.1 MG/DL (8.8-10.2); CARBON DIOXIDE LEVEL 29 MEQ/L (21-32); CHLORIDE LEVEL 104 MEQ/L (98-107); CREATININE FOR GFR 1.16 MG/DL (0.70-1.30); GLOMERULAR FILTRATION RATE > 60.0 (>42); GLUCOSE, FASTING 87 MG/DL (70-100); POTASSIUM SERUM 3.8 MEQ/L (3.5-5.1); SODIUM LEVEL 140 MEQ/L (136-145)
[2019-06-21 14:19] LABS: FREE THYROXINE INDEX 3.6 % (1.4-3.8); T UPTAKE 35 % (33-40); THYROXINE (T4) 10.4 UG/DL (4.5-12.0)
[2019-06-21] MEDS ORDERED: NS 1,000 ML IV ONE (15:45)
[2019-06-21 15:56] LABS: CK-MB VALUE MASS < 1.0 NG/ML (<3.6); CPK CREATINE PHOSPHOKINASE 70 U/L (39-308); MB/CK RELATIVE INDEX 1.43 (< OR =4); TROPONIN I < 0.02 NG/ML (< 0.10)
[2019-06-21] MEDS ORDERED: HYDR25TAB PO (16:10)
[2019-06-21] MEDS ORDERED: D 1010004 PO (16:10)
[2019-06-21] MEDS ORDERED: FLON1SPR NARES (16:10)
[2019-06-21] MEDS ORDERED: MECL1TAB31 PO (16:10)
[2019-06-21] MEDS ORDERED: BRONCHW PO (16:10)
[2019-06-21] MEDS ORDERED: OXYB-54 PO (16:10)
[2019-06-21 16:22] LABS: FREE T4 1.31 NG/DL (0.76-1.46)
[2019-06-21] MEDS ORDERED: diphenhydrAMINE INJ 50MG/ML VIAL (J1200) IV ONE (17:00)
[2019-06-21] MEDS ORDERED: OMEPRAZOLE 20 MG CAP PO PRN (17:15)
[2019-06-21] MEDS ORDERED: ISOVUE-370 76% 100ML VIAL (Q9967) As Ordered ONE (17:22)
[2019-06-21] MEDS ORDERED: MOM 30ML SUSPENSION UDC PO PRN (17:30)
[2019-06-21] MEDS ORDERED: ACETAMINOPHEN TAB 650MG DOSE (2X325MG) PO PRN (17:30)
[2019-06-21] MEDS ORDERED: MAALOX 30 ML SUSP *UDC PO PRN (17:30)
--- NOTE | 2019-06-21 17:40 | HPEPDOC ---
[facility] Medical History & Physical Date of Admission Jun 21, 2019 Date of Service: Jun 21, 2019 History and Physical CHIEF COMPLAINT: Comes to the ER because of persistent dizziness HISTORY OF PRESENT ILLNESS: This is a 73-year-old male with past medical history of hypertension, Lesa's thyroiditis and hypothyroidism on replacement, BPH, was recently in the ER because of persistent dizziness for which he underwent evaluation and got an MRI of the head at that time and was diagnosed with impetigo after the MRI came out to be negative and was discharged home on meclizine. As per the patient, his symptoms after he was discharged back on the seventh of this month did not improve at all and he continues to be extr lata dizzy, even with minimal activity. The patient states that he whenever he is trying to get up suddenly or tried to turn his head to the right side. He feels extremely dizzy. He does state that he feels some fullness in his ear as well. He also states that he is feeling some tingling and numbness in his thumb and index finger which has been going on over the last couple of days. He denies any weakness, loss of bowel or. He states that he is too anxious to even stand up because he thinks that he'll fall down. He denies any nausea, any vomiting, any fevers, any rigors, any chills. He denies any loss of hearing. He denies any chest pains, any loss of consciousness. PAST MEDICAL HISTORY: 1. Hypertension 2. BPH 3. Vertigo 4. Hypothyroidism. 5. Lesa's thyroiditis PAST SURGICAL HISTORY Noncontributory FAMILY HISTORY: Hypertension SOCIAL HISTORY: Denies any alcohol use. Denies any drug abuse HOSPITAL MEDICATIONS: See below REVIEW OF SYSTEMS: As per history of present illness. 10-point system otherwise negative. PHYSICAL EXAMINATION: GENERAL: The patient is awake, alert, oriented to person, place and time. Answering questions appropriately. Anicteric sclerae. No jaundice. Pupils are round, reactive to light and accommodation. Extraocular muscles are intact. Normocephalic, atraumatic. No cervical lymphadenopathy or thyromegaly. No sinus congestion in the maxillary area. LUNGS: Clear on auscultation bilaterally HEART: S1, S2. Sinus rhythm. No murmurs, rubs or gallops. Nondisplaced point of maximum impulse (PMI). No carotid bruits. No abdominal bruits. ABDOMEN: Obese, soft, nontender, nondistended. Positive bowel sounds times four quadrants. No rebound or guarding. No hepatosplenomegaly. EXTREMITIES: No cyanosis, clubbing or edema. The patient's proximal interphalangeal, distal interphalangeal, metacarpophalangeal joints are normal. No bogginess or swelling. Elbow joints are normal. Full range of motion. Neurology: Cranial sputum. [place] normal. No nystagmus. Strength equal in bilateral upper and lower extremities. Field of vision is normal LABORATORY DATA: Reviewed CT scan of the head was done, which as per the ER is negative. Currently, MRI and CTA head and neck has been ordered. ASSESSMENT AND PLAN: This is a 73-year-old male with past medical history of hypertension, BPH, vertigo, comes to the hospital because of recurrent dizziness and numbness in his right thumb and index finger. Currently he's been evaluated for possible benign positional were diagnosed versus TIA. 1. Benign positional vertigo. Given the patient's history of feeling dizzy while turning his head and her current symptoms. The patient probably has benign positional vertigo. Also, as the patient feels lightheadedness, unsteadiness, loss of balance and mild nausea with some fullness in the year. It again is pointing towards BPV. We'll consult physical therapy for epleys manure. Also will consider short course of steroids for possible left otitis. If this maneuver doesn't work. Other causes of dizziness, especially orthostatic hypotension has been ruled out. I will also get a 8 AM cortisol level to look for any adrenal i nsufficiency. Electrolytes are currently within normal range. We'll continue to follow. 2. TIA. His ABCD 2 score is 2 to 3, which puts him at very low risk of having a stroke. Likely this is not CVA/TIA. But to rule out any other vascular causes, especially for the posterior circulation. CTA head and neck will be done which is already being ordered by the ER. We will keep on aspirin and decide about starting on the MRI and CT is done. Also, because of his numbness and tingling vitamin B12 levels will be done. Other workup including echo and EKG will be done as well. Patient will be kept on telemetry. 3. Hypertension. Continue home medication not contraindicated. Irbesartan which is a new medication which was started 2 weeks back. Has been held at this time. 4. BPH. Continue input output monitoring and home medications. Expected length of stay is less than 2 midnights. Continue home medications and not contraindicated. Vital Signs Vital Signs Date Time Temp Pulse Resp B/P (MAP) Pulse Ox O2 Delivery O2 Flow Rate FiO2 06/21/19 16:40 72 18 193/89 (123) 06/21/19 12:24 98.7 99 Laboratory Data Labs 24H Laboratory Tests 2 06/21/19 12:37: Immature Granulocyte % (Auto) 0.7, Neutrophils (%) (Auto) 71.5H, Lymphocytes (%) (Auto) 17.5L, Monocytes (%) (Auto) 8.1H, Eosinophils (%) (Auto) 1.3, Basophils (%) (Auto) 0.9, Neutrophils # (Auto) 4.9, Lymphocytes # (Auto) 1.2L, Monocytes # (Auto) 0.6, Eosinophils # (Auto) 0.1, Basophils # (Auto) 0.1, Nucleated Red Blood Cells % (auto) 0.0, Anion Gap 7L, Glomerular Filtration Rate > 60.0, Calcium Level 10.1, Total Bilirubin 1.5H, Aspartate Amino Transf (AST/SGOT) 33, Alanine Aminotransferase (ALT/SGPT) 26, Alkaline Phosphatase 82, Total Creatine Kinase 70, Creatine Kinase MB < 1.0, Creatine Kinase MB Relative Index 1.43, Troponin I < 0.02, Total Protein 8.0, Albumin 4.1, Albumin/Globulin Ratio 1.05, Thyroid Stimulating Hormone (TSH) 1.150, Free Thyroxine 1.31, Free Thyroxine Index 3.6, Thyroxine (T4) 10.4, Triiodothyronine (T3) Uptake 35 06/21/19 15:31: Urine Color STRAW, Urine Appearance CLEAR, Urine pH 8.0, Urine Specific [place] 1.004, Urine Protein NEGATIVE, Urine Glucose (UA) NEGATIVE, Urine Ketones NEGATIVE, Urine Blood NEGATIVE, Urine Nitrite NEGATIVE, Urine Bilirubin NEGATIVE, Urine Urobilinogen 0.2, Urine Leukocyte Esterase NEGATIVE, Urine WBC (Auto) 0, Urine RBC (Auto) 1, Urine Hyaline Casts (Auto) 0, Urine Bacteria (Auto) NEGATIVE, Urine Squamous Epithelial Cells 0, Urine Sperm (Auto) CBC/BMP Laboratory Tests 1/14/20 12:37 Home Medications Scheduled Alprazolam (Alprazolam) 0.25 Mg Tab, 0.25 MG PO DAILY TAKES BETWEEN [id number] Azelastine HCl (Azelastine HCl) 0.1% [place].pump, 1 SPRAY NARES Q2D Buspirone HCl (Buspirone HCl) 10 Mg Tablet, 10 MG PO QHS Cholecalciferol (Vitamin D3) (Vitamin D3) 25 Mcg Capsule, 1,000 UNIT PO DAILY Cyanocobalamin (Vitamin B-12) (Vitamin B-12) 250 Mcg [place], 500 MCG PO Q2D Doxazosin Mesylate (Doxazosin Mesylate) 4 Mg Tab, 4 MG PO QHS Fluticasone Propionate (Flonase Allergy Relief) 9.9 Ml [place].susp, 1 SPRAY NARES DAILY Hydrochlorothiazide (Hydrochlorothiazide) 25 Mg Tablet, 25 MG PO DAILY Levothyroxine Sodium (Levothyroxine Sodium) 125 Mcg Tab, 125 MCG PO DAILY Meclizine HCl (Meclizine HCl) 25 Mg Tablet, 25 MG PO Q8H Multivitamin (Chewable-Alexander) 1 Each Tab.chew, 2 CHW PO DAILY Oxybutynin Chloride (Oxybutynin Chloride ER) 5 Mg Tab.er.24, 5 MG PO QHS Telmisartan (Telmisartan) 20 Mg Tablet, 20 MG PO DAILY Scheduled PRN Omeprazole (Omeprazole) 20 Mg Tab, 20 MG PO DAILY PRN for HEARTBURN Allergies Coded Allergies: No Known Allergies (Unverified , 06/13/19) A-FIB/CHADSVASC A-FIB History Current/History of A-Fib/PAF?: No Current PO Anticoag Therapy: No KOFI MAJOR MD Jun 21, 2019 17:40
--- NOTE | 2019-06-21 18:35 | REPVR ---
PROCEDURE INFORMATION: Exam: CT Angiography Neck With Contrast Exam date and time: 06/21/2019 5:53 PM Age: 73 years old Clinical indication: Weakness; Additional info: Weakness and dizziness TECHNIQUE: Imaging protocol: Computed tomography angiography of the neck with intravenous contrast. 3D rendering: MIP and/or 3D reconstructed images were created by the technologist. Radiation optimization: All CT scans at this facility use at least one of these dose optimization techniques: automated exposure control; mA and/or kV adjustment per patient size (includes targeted exams where dose is matched to clinical indication); or iterative reconstruction. Contrast material: ISOVUE 370; Contrast volume: 100 ml; Contrast route: IV; COMPARISON: Head CT 06/21/2019 FINDINGS: VASCULATURE: Right common carotid artery: Unremarkable. No stenosis. No dissection or occlusion. Right internal carotid artery: Unremarkable extracranial segment. No stenosis. No dissection or occlusion. Right external carotid artery: Unremarkable. No occlusion or stenosis of the origin. Right vertebral artery: Unremarkable. No stenosis. No dissection or occlusion. Left common carotid artery: Unremarkable. No stenosis. No dissection or occlusion. Left internal carotid artery: Unremarkable extracranial segment. No stenosis. No dissection or occlusion. Left external carotid artery: Unremarkable. No occlusion or stenosis of the origin. Left vertebral artery: There is severe stenosis at the origin of the left vertebral artery. NECK: Bones/joints: No acute fracture. Soft tissues: Normal. No significant soft tissue swelling. IMPRESSION: 1. No carotid stenosis. 2. 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 No right vertebral artery stenosis. COMMENT: Reference per NASCET criteria for degree of stenosis: Mild: less than 50% stenosis. Moderate: 50-69% stenosis. Severe: 70-94% stenosis. Near occlusion: 95-99% stenosis. Electronically signed by: Delio Squires On 06/21/2019 18:34:34 PM
--- NOTE | 2019-06-21 18:36 | REPVR ---
PROCEDURE INFORMATION: Exam: CT Head Without Contrast Exam date and time: 06/21/2019 5:53 PM Age: 73 years old Clinical indication: Other: Weakness; Additional info: Weakness, dizziness TECHNIQUE: Imaging protocol: Computed tomography of the head without contrast. Radiation optimization: All CT scans at this facility use at least one of these dose optimization techniques: automated exposure control; mA and/or kV adjustment per patient size (includes targeted exams where dose is matched to clinical indication); or iterative reconstruction. COMPARISON: CT Head without contrast 06/13/2019 5:22 PM FINDINGS: Brain: There is mild age-related volume loss. There is mild periventricular white matter lucency. There is no evidence of infarct, matamoros-white matter differentiation is preserved. There is no hemorrhage or extra-axial collection. There is no mass. Ventricles: There is no hydrocephalus. Bones/joints: Unremarkable. No acute fracture. Sinuses: Visualized sinuses are unremarkable. No fluid levels. Mastoid air cells: Visualized mastoid air cells are well aerated. Soft tissues: Unremarkable. IMPRESSION: 1. Mild chronic microvascular disease. 2. No acute intracranial lesion or injury and no change from prior scan. Electronically signed by: Delio Squires On 06/21/2019 18:36:15 PM
--- NOTE | 2019-06-21 18:41 | REPVR ---
PROCEDURE INFORMATION: Exam: CT Angiography Head With Contrast Exam date and time: 06/21/2019 5:53 PM Age: 73 years old Clinical indication: Weakness; Additional info: Weakness and dizziness TECHNIQUE: Imaging protocol: Computed tomography angiography of the head with intravenous contrast. 3D rendering: MIP and/or 3D reconstructed images were created by the technologist. Radiation optimization: All CT scans at this facility use at least one of these dose optimization techniques: automated exposure control; mA and/or kV adjustment per patient size (includes targeted exams where dose is matched to clinical indication); or iterative reconstruction. Contrast material: ISOVUE 370; Contrast volume: 100 ml; Contrast route: IV; COMPARISON: CT Head without contrast 06/13/2019 5:22 PM FINDINGS: Right internal carotid artery: Unremarkable. Intracranial segment is patent with no significant stenosis. No aneurysm. Right anterior cerebral artery: Unremarkable. No occlusion or significant stenosis. No aneurysm. Right middle cerebral artery: Unremarkable. No occlusion or significant stenosis. No aneurysm. Right posterior cerebral artery: Unremarkable. No occlusion or significant stenosis. No aneurysm. Right vertebral artery: Unremarkable. No occlusion or significant stenosis. No aneurysm. Left internal carotid artery: Unremarkable. Intracranial segment is patent with no significant stenosis. No aneurysm. Left anterior cerebral artery: Unremarkable. No occlusion or significant stenosis. No aneurysm. Left middle cerebral artery: Unremarkable. No occlusion or significant stenosis. No aneurysm. Left posterior cerebral artery: There is a origin of the left posterior cerebral artery. No stenosis. No aneurysm. Left vertebral artery: Unremarkable. No occlusion or significant stenosis. No aneurysm. Basilar artery: Unremarkable. No occlusion or significant stenosis. No aneurysm. IMPRESSION: No intracranial stenosis or occlusion. Electronically signed by: Delio Squires On 06/21/2019 18:41:21 PM
[2019-06-21 19:30] LABS: TOTAL 25(OH) VITAMIN D 30.2 NG/ML (30.0-100.0); VITAMIN B12 LEVEL 686 PG/ML (247-911)
--- NOTE | 2019-06-21 20:28 | REPVR ---
PROCEDURE INFORMATION: Exam: MR Head Without Contrast Exam date and time: 06/21/2019 8:02 PM Age: 73 years old Clinical indication: Dizziness and walking, difficulty and weakness, extremity; Right; Additional info: Weakness right arm, dizziness TECHNIQUE: Imaging protocol: MR of the head without contrast. COMPARISON: MRI-Brain without Contrast 06/13/2019 7:53 PM FINDINGS: Brain: There are few small hyperintense foci within the white matter. DWI demonstrates no evidence of acute infarct. Gradient echo images demonstrate no evidence of hemorrhage. There is no extra-axial collection. There is no mass. Ventricles: Normal. No ventriculomegaly. Bones/joints: Unremarkable. Soft tissues: Unremarkable. Sinuses: Normal as visualized. No acute sinusitis. Mastoid air cells: Normal as visualized. No mastoid effusion. Orbits: Unremarkable. IMPRESSION: 1. There are few nonspecific hyperintense foci within the white matter most likely to represent minimal chronic microvascular disease. 2. No acute intracranial lesion or injury and no change from prior scan. Electronically signed by: Delio Squires On 06/21/2019 20:28:02 PM
--- NOTE | 2019-06-21 20:38 | REPVR ---
PROCEDURE INFORMATION: Exam: MR Cervical Spine Without Contrast Exam date and time: 06/21/2019 8:02 PM Age: 73 years old Clinical indication: Weakness; Additional info: Dizziness TECHNIQUE: Imaging protocol: Multiplanar magnetic resonance images of the cervical spine without contrast. COMPARISON: CT ANGIO NECK 06/21/2019 5:47 PM FINDINGS: Vertebrae: There is no fracture. There is a minimal C4-C5 retrolisthesis. Alignment is otherwise normal. Stir images demonstrate no evidence of bone marrow edema or marrow infiltrating lesion. Spinal cord: The spinal cord and cervical medullary junction are normal. No cord compression. C2-C3: No significant disc disease. No significant spinal stenosis. C3-C4: Minimal spondylosis and disc bulge. No central stenosis. There is mild bilateral foraminal stenosis. C4-C5: Mild spondylosis and disc bulge. No central stenosis. Mild right and moderate left foraminal stenosis. C5-C6: Minimal spondylosis and disc bulge. Mild central stenosis. Moderate to severe left and more severe right foraminal stenosis. C6-C7: No disc bulge. No central stenosis. Moderate bilateral foraminal stenosis. C7-T1: No significant disc disease. No significant spinal stenosis. Vertebral arteries: Expected flow voids in the vertebral arteries. Soft tissues: No evidence of paraspinous or intraspinal mass, hemorrhage or fluid collection. IMPRESSION: 1. No fracture. 2. Degenerative findings detailed above. Electronically signed by: Delio Squires On 06/21/2019 20:37:57 PM
[2019-06-21] MEDS: MECLIZINE 25 MG TABLET PO SCH (21:23)
[2019-06-21] MEDS: DOCUSATE SODIUM 100 MG CAP PO SCH (21:23)
[2019-06-21] MEDS: DOXAZOSIN MESYLATE 4 MG TAB PO SCH (21:23)
[2019-06-21] MEDS: HEPARIN SOD (PORCINE) 5000 UNITS/ML VIAL (J1644 PER 1000UNITS) SC SCH (21:23)
[2019-06-21] MEDS: oxyBUTYnin *DITROPAN XL* 5 MG TABCR PO SCH (21:23)
[2019-06-21] MEDS: busPIRone 10 MG TAB PO SCH (21:23)
[2019-06-22] MEDS ORDERED: OXYMETAZOLINE NASAL SPRAY (AFRIN) SCH (00:30)
[2019-06-22] MEDS: OXYMETAZOLINE NASAL SPRAY (AFRIN) SCH ×2 (00:32→20:57)
[2019-06-22] MEDS: HEPARIN SOD (PORCINE) 5000 UNITS/ML VIAL (J1644 PER 1000UNITS) SC SCH ×3 (05:55→20:57)
[2019-06-22] MEDS: MECLIZINE 25 MG TABLET PO SCH ×3 (06:28→20:53)
[2019-06-22] MEDS: LEVOTHYROXINE 125MCG TABLET (0.125MG) PO SCH (06:28)
[2019-06-22] MEDS: ASPIRIN 81 MG CHEW TABLET PO SCH (08:19)
[2019-06-22] MEDS: DOCUSATE SODIUM 100 MG CAP PO SCH ×2 (08:20→20:56)
[2019-06-22] MEDS: FLUTICASONE PROP 0.05% NASAL SPRAY 16 GM (FLONASE) NARES SCH (08:20)
[2019-06-22] MEDS: hydroCHLOROthiazide 25 MG TAB PO SCH (08:20)
[2019-06-22] MEDS ORDERED: CYANOCOBALAMIN 500 MCG TAB PO SCH (09:00)
--- NOTE | 2019-06-22 10:13 | ECGEPIP ---
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
[2019-06-22] MEDS: ALPRAZolam 0.25 MG TAB PO SCH (11:00)
[2019-06-22 11:22] LABS: BASO % 0.5 % (0.0-1.0); EOS # 0.1 10^3/uL (0.0-0.5); EOS % 1.8 % (0.0-3.0); HEMATOCRIT 44.4 % (42.0-52.0); HEMOGLOBIN 15.3 g/dl (13.5-17.5); LYMPH # 1.3 10^3/uL (1.5-5.0); LYMPH % 20.8 % (24.0-44.0); MEAN CORPUSCULAR HEMOGLOBIN 29.3 pg (27.0-33.0); MEAN CORPUSCULAR HGB CONC 34.5 g/dl (32.0-36.5); MEAN CORPUSCULAR VOLUME 84.9 fl (80.0-96.0); MONO # 0.5 10^3/uL (0.0-0.8); MONO % 7.6 % (0.0-5.0); NEUTROPHILS # 4.3 10^3/uL (1.5-8.5); NEUTROPHILS % 68.7 % (36.0-66.0); PLATELET COUNT, AUTOMATED 167 10^3/uL (150-450); RED BLOOD COUNT 5.23 10^6/uL (4.30-6.10); WHITE BLOOD COUNT 6.2 10^3/uL (4.0-10.0)
--- NOTE | 2019-06-22 11:34 | IPNPDOC ---
Subjective Date Seen The patient was seen on 06/22/19. Subjective Chief Complaint/HPI DIZZINESS Events since last encounter Admitted for dizziness, orthostasis. Was given meclizine with some relief. states symptoms are markedly improved today, but not gone. Pending Vestibular PT eval today. CT head negative. MR neck negative. Constitutional: Denies: Chills, Fever, Night Sweats ENT: Denies: Head Aches, Ear Pain, Dysphagia Cardiovascular: Denies: Chest Pain, Palpitations, Orthopnea, Paroxysmal Noc. Dyspnea, Lt Headedness Gastrointestinal: Denies: Nausea, Vomiting, Abdominal Pain, Diarrhea, Constipation Genitourinary: Denies: Dysuria, Frequency, Incontinence, Retention Neurological: Reports: Other Symptoms (dizziness with position change) Psych: Reports: Mood Normal; Denies: Depression, Memory Issues Objective Physical Examination General Exam: Positive: Alert, No Acute Distress Eye Exam: Positive: PERRLA, Conjunctiva & lids normal, EOMI; Negative: Sclera icteric Neck Exam: Positive: Supple; Negative: JVD, thyromegaly Chest Exam: Positive: Clear to auscultation, Normal air movement Heart Exam: Positive: Rate Normal, Regular Rhythm, Normal S1, Normal S2; Negative: Murmurs, Rubs Telemetry: Positive: No significant arrhythmia Abdomen Exam: Positive: Normal bowel sounds, Soft; Negative: Tenderness, Hepatospenomegaly Psych Exam: Positive: Mental status NL, Mood NL, Oriented x 3 Assessment /Plan Problems (1) BPPV (benign paroxysmal positional vertigo) Status: Acute Problem Text: pending PT eval. (2) Hypertension Status: Chronic Problem Text: stable (3) Orthostatic hypotension Status: Acute Response to Treatment: Improving (4) Dizziness Status: Acute Plan/VTE VTE Prophylaxis Ordered?: Yes VS, I&O, 24H, Fishbone Vital Signs/I&O Vital Signs Date Time Temp Pulse Resp B/P (MAP) Pulse Ox O2 Delivery O2 Flow Rate FiO2 06/22/19 06:00 61 16 124/72 (89) 95 Room Air 06/22/19 04:00 98.0 Laboratory Data 24H LABS Laboratory Tests 2 06/21/19 12:37: Immature Granulocyte % (Auto) 0.7, Neutrophils (%) (Auto) 71.5H, Lymphocytes (%) (Auto) 17.5L, Monocytes (%) (Auto) 8.1H, Eosinophils (%) (Auto) 1.3, Basophils (%) (Auto) 0.9, Neutrophils # (Auto) 4.9, Lymphocytes # (Auto) 1.2L, Monocytes # (Auto) 0.6, Eosinophils # (Auto) 0.1, Basophils # (Auto) 0.1, Nucleated Red Blood Cells % (auto) 0.0, Anion Gap 7L, Glomerular Filtration Rate > 60.0, Calcium Level 10.1, Total Bilirubin 1.5H, Aspartate Amino Transf (AST/SGOT) 33, Alanine Aminotransferase (ALT/SGPT) 26, Alkaline Phosphatase 82, Total Creatine Kinase 70, Creatine Kinase MB < 1.0, Creatine Kinase MB Relative Index 1.43, Troponin I < 0.02, Total Protein 8.0, Albumin 4.1, Albumin/Globulin Ratio 1.05, Vitamin B12 Level 686, 25-Hydroxy Vitamin D Total 30.2, Thyroid Stimulating Hormone (TSH) 1.150, Free Thyroxine 1.31, Free Thyroxine Index 3.6, Thyroxine (T4) 10.4, Triiodothyronine (T3) Uptake 35 06/21/19 15:31: Urine Color STRAW, Urine Appearance CLEAR, Urine pH 8.0, Urine Specific [place] 1.004, Urine Protein NEGATIVE, Urine Glucose (UA) NEGATIVE, Urine Ketones NEGATIVE, Urine Blood NEGATIVE, Urine Nitrite NEGATIVE, Urine Bilirubin NEGATIVE, Urine Urobilinogen 0.2, Urine Leukocyte Esterase NEGATIVE, Urine WBC (Auto) 0, Urine RBC (Auto) 1, Urine Hyaline Casts (Auto) 0, Urine Bacteria (Auto) NEGATIVE, Urine Squamous Epithelial Cells 0, Urine Sperm (Auto) 06/22/19 11:07: Immature Granulocyte % (Auto) 0.6, Neutrophils (%) (Auto) 68.7H, Lymphocytes (%) (Auto) 20.8L, Monocytes (%) (Auto) 7.6H, Eosinophils (%) (Auto) 1.8, Basophils (%) (Auto) 0.5, Neutrophils # (Auto) 4.3, Lymphocytes # (Auto) 1.3L, Monocytes # (Auto) 0.5, Eosinophils # (Auto) 0.1, Basophils # (Auto) 0.0, Nucleated Red Blood Cells % (auto) 0.0 CBC/BMP Laboratory Tests 06/21/19 12:37 06/22/19 11:07 Ching Quintero [facility] Jun 22, 2019 11:34
[2019-06-22 11:50] VITALS: BP 125/81
[2019-06-22 12:01] LABS: ALBUMIN 3.6 GM/DL (3.2-5.2); ALT/SGPT 21 U/L (12-78); BILIRUBIN,TOTAL 1.6 MG/DL (0.2-1.0); BLOOD UREA NITROGEN 19 MG/DL (7-18); CALCIUM LEVEL 9.7 MG/DL (8.8-10.2); CARBON DIOXIDE LEVEL 29 MEQ/L (21-32); CHLORIDE LEVEL 102 MEQ/L (98-107); GLOMERULAR FILTRATION RATE > 60.0 (>42); GLUCOSE, FASTING 108 MG/DL (70-100); POTASSIUM SERUM 3.6 MEQ/L (3.5-5.1); SODIUM LEVEL 139 MEQ/L (136-145); TOTAL PROTEIN 7.1 GM/DL (6.4-8.2)
[2019-06-22 14:00] VITALS: BP 128/80
[2019-06-22] MEDS: oxyBUTYnin *DITROPAN XL* 5 MG TABCR PO SCH (20:53)
[2019-06-22] MEDS: busPIRone 10 MG TAB PO SCH (20:53)
[2019-06-22 20:56] VITALS: BP 122/74
[2019-06-22] MEDS: DOXAZOSIN MESYLATE 4 MG TAB PO SCH (20:56)
[2019-06-22] MEDS ORDERED: RESTASIS EYE DROPS (PATIENT'S OWN MED) OU SCH (21:00)
[2019-06-22 22:00] VITALS: BP 132/81
[2019-06-23] MEDS ORDERED: UNRESOLVED PATIENT OWN MED ORDER XX SCH (00:01)
[2019-06-23] MEDS: LEVOTHYROXINE 125MCG TABLET (0.125MG) PO SCH (05:43)
[2019-06-23] MEDS: HEPARIN SOD (PORCINE) 5000 UNITS/ML VIAL (J1644 PER 1000UNITS) SC SCH (05:43)
[2019-06-23] MEDS: MECLIZINE 25 MG TABLET PO SCH (05:43)
[2019-06-23 06:00] VITALS: BP 110/74
[2019-06-23 06:22] LABS: BASO # 0.1 10^3/uL (0.0-0.2); BASO % 0.6 % (0.0-1.0); EOS # 0.3 10^3/uL (0.0-0.5); EOS % 3.3 % (0.0-3.0); HEMATOCRIT 42.6 % (42.0-52.0); HEMOGLOBIN 14.8 g/dl (13.5-17.5); LYMPH # 2.1 10^3/uL (1.5-5.0); LYMPH % 26.4 % (24.0-44.0); MEAN CORPUSCULAR HEMOGLOBIN 29.7 pg (27.0-33.0); MEAN CORPUSCULAR HGB CONC 34.7 g/dl (32.0-36.5); MEAN CORPUSCULAR VOLUME 85.5 fl (80.0-96.0); MONO # 0.5 10^3/uL (0.0-0.8); MONO % 6.8 % (0.0-5.0); NEUTROPHILS # 4.9 10^3/uL (1.5-8.5); NEUTROPHILS % 62.3 % (36.0-66.0); PLATELET COUNT, AUTOMATED 186 10^3/uL (150-450); RED BLOOD COUNT 4.98 10^6/uL (4.30-6.10); WHITE BLOOD COUNT 7.9 10^3/uL (4.0-10.0)
[2019-06-23 06:52] LABS: ALBUMIN 3.4 GM/DL (3.2-5.2); ALT/SGPT 20 U/L (12-78); BILIRUBIN,TOTAL 1.1 MG/DL (0.2-1.0); BLOOD UREA NITROGEN 23 MG/DL (7-18); CALCIUM LEVEL 9.1 MG/DL (8.8-10.2); CARBON DIOXIDE LEVEL 28 MEQ/L (21-32); CHLORIDE LEVEL 103 MEQ/L (98-107); CREATININE FOR GFR 1.22 MG/DL (0.70-1.30); GLOMERULAR FILTRATION RATE > 60.0 (>42); GLUCOSE, FASTING 106 MG/DL (70-100); POTASSIUM SERUM 3.5 MEQ/L (3.5-5.1); SODIUM LEVEL 138 MEQ/L (136-145); TOTAL PROTEIN 7.4 GM/DL (6.4-8.2)
[2019-06-23] MEDS: DOCUSATE SODIUM 100 MG CAP PO SCH (09:25)
[2019-06-23] MEDS: hydroCHLOROthiazide 25 MG TAB PO SCH (09:25)
[2019-06-23] MEDS: ASPIRIN 81 MG CHEW TABLET PO SCH (09:25)
[2019-06-23] MEDS: FLUTICASONE PROP 0.05% NASAL SPRAY 16 GM (FLONASE) NARES SCH (09:45)
--- NOTE | 2019-06-23 10:06 | IPNPDOC ---
Subjective Date Seen The patient was seen on 06/23/19. Subjective Chief Complaint/HPI Pt states that he is feeling a little better today, has been up and back and forth to the bathroom this morning and feels this went well. He states when he turns he feels unsteady. General: Denies: Fatigue Constitutional: Denies: Chills, Fever ENT: Denies: Head Aches Pulmonary: Denies: Dyspnea, Cough Cardiovascular: Denies: Chest Pain, Palpitations Musculoskeletal: Denies: Neck Pain Neurological: Denies: Weakness Psych: Reports: Mood Normal Objective Physical Examination General Exam: Positive: Alert, No Acute Distress Eye Exam: Positive: PERRLA, EOMI; Negative: Sclera icteric Neck Exam: Positive: Supple; Negative: JVD, thyromegaly Chest Exam: Positive: Clear to auscultation, Normal air movement Heart Exam: Positive: Rate Normal, Regular Rhythm, Normal S1, Normal S2; Negative: Murmurs, Rubs Telemetry: Positive: No significant arrhythmia Abdomen Exam: Positive: Normal bowel sounds, Soft; Negative: Tenderness, Hepatospenomegaly Psych Exam: Positive: Mental status NL, Mood NL, Oriented x 3 Assessment /Plan Problems (1) BPPV (benign paroxysmal positional vertigo) Status: Acute Problem Text: No safe per PT 06/22, await PT f/u today. (2) Hypertension Status: Chronic Problem Text: stable (3) Orthostatic hypotension Status: Acute Response to Treatment: Improving (4) Dizziness Status: Acute Plan/VTE VTE Prophylaxis Ordered?: Yes VS, I&O, 24H, [facility] Vital Signs/I&O Vital Signs Date Time Temp Pulse Resp B/P (MAP) Pulse Ox O2 Delivery O2 Flow Rate FiO2 06/23/19 06:00 97.0 64 20 110/74 (86) 98 NIPPV (BIPAP/CPAP) I&O- Last 24 Hours up to 6 AM 06/23/19 06:00 Intake Total 1410 ml Output Total 525 ml Balance 885 ml Laboratory Data 24H LABS Laboratory Tests 2 06/22/19 11:07: Immature Granulocyte % (Auto) 0.6, Neutrophils (%) (Auto) 68.7H, Lymphocytes (%) (Auto) 20.8L, Monocytes (%) (Auto) 7.6H, Eosinophils (%) (Auto) 1.8, Basophils (%) (Auto) 0.5, Neutrophils # (Auto) 4.3, Lymphocytes # (Auto) 1.3L, Monocytes # (Auto) 0.5, Eosinophils # (Auto) 0.1, Basophils # (Auto) 0.0, Nucleated Red Blood Cells % (auto) 0.0, Anion Gap 8, Glomerular Filtration Rate > 60.0, Calcium Level 9.7, Total Bilirubin 1.6H, Aspartate Amino Transf (AST/SGOT) 29, Alanine Aminotransferase (ALT/SGPT) 21, Alkaline Phosphatase 76, Total Protein 7.1, Albumin 3.6, Albumin/Globulin Ratio 1.03 06/23/19 05:13: Immature Granulocyte % (Auto) 0.6, Neutrophils (%) (Auto) 62.3, Lymphocytes (%) (Auto) 26.4, Monocytes (%) (Auto) 6.8H, Eosinophils (%) (Auto) 3.3H, Basophils (%) (Auto) 0.6, Neutrophils # (Auto) 4.9, Lymphocytes # (Auto) 2.1, Monocytes # (Auto) 0.5, Eosinophils # (Auto) 0.3, Basophils # (Auto) 0.1, Nucleated Red Blood Cells % (auto) 0.0, Anion Gap 7L, Glomerular Filtration Rate > 60.0, Calcium Level 9.1, Total Bilirubin 1.1H, Aspartate Amino Transf (AST/SGOT) 27, Alanine Aminotransferase (ALT/SGPT) 20, Alkaline Phosphatase 71, Total Protein 7.4, Albumin 3.4, Albumin/Globulin Ratio 0.85L CBC/BMP Laboratory Tests 06/22/19 11:07 06/23/19 05:13 Attending Note Attending Note Patient denies experiencing vertigo. He may have problem with vestibular/proprioception integration which should gradually improve with PT. BP has been OK w/o telmisartan. Echo has been done. If he passes PT safety then he can be discharged. RENETTA RHODES PA-C Jun 23, 2019 10:06 Adair Low MD Jun 23, 2019 11:52
[2019-06-23] MEDS: ALPRAZolam 0.25 MG TAB PO SCH (11:07)
--- NOTE | 2019-06-23 17:30 | DSES ---
DATE OF ADMISSION: 06/21/2019 DATE OF DISCHARGE: 06/23/2019 REASON FOR ADMISSION: Mr. Zaldivar presented to the emergency department (ED) with complaint of dizziness, he had fallen. He has a past history of Lesa's thyroiditis, hypothyroidism - now on replacement. He had developed some persistent dizziness. When seen in the emergency room (ER) recently, thought to have a vestibular neuronitis at that time. Physical therapy analysis today indicated that he has residual right vestibular hypofunction, but he seems to be rapidly improving. He does have a history of hypertension for which he was on hydrochlorothiazide and telmisartan. CT of the head was done, CTA was done which was negative. No intracranial stenosis or occlusion. Neck CTA was done which showed no carotid stenosis. Brain MRI was done which showed few nonspecific hyperintense foci within white matter representing chronic microvascular disease but characterized as minimal. Cervical spine MRI was done which showed degenerative changes at C5-6, mild central canal stenosis, moderate to severe left and more severe right foraminal stenosis, mild C4-5 spondylosis with no central canal stenosis but mild right and moderate left foraminal stenosis. C3-4 showing mild bilateral foraminal stenosis. On admission, his telmisartan was held; it is not clear exactly why it was held, perhaps there was some suspicion that there may have been orthostatic hypotension, but his pressures were initially a little bit elevated but the last 2 days, his pressures have been lowish, actually, with pressures ranging from starting at 2040 hours on June 21, 2019, his highest pressure was 132/81. Initially on 06/21/2019 at 1640 hours, he had a pressure of 193/89 and he was 146/79 on admission. Other data developed during hospital stay includes CBC which was unremarkable. Chemistry showing a BUN of 23, creatinine 1.22. B12 was normal at 686, vitamin D was 30.2, thyroid profile was normal. Urinalysis was done: 1+ red cells, pH 8. Symptoms improved. He passed a home safety evaluation. 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 Hypertension. History of hypothyroidism. DISCHARGE PLAN: He will be on the following medications: - alprazolam 0.25 mg daily - azelastine nasal spray as needed - buspirone 10 mg nightly - vitamin D 1000 units daily - vitamin B12 500 mcg as a lozenge every 2 days - doxazosin 4 mg daily - Flonase allergy relief one spray daily each side - hydrochlorothiazide 25 mg daily - levothyroxine 125 mcg daily - meclizine 25 mg every 8 hours, really should use this agent as needed for symptoms of dizziness - Multi-Alexander daily - omeprazole 20 mg as needed for heartburn daily - oxybutynin 5 mg by mouth daily - held for the time being. - telmisartan 20 mg daily; this will be held at discharge pending followup. At followup, he is advised to bring his home blood pressure cuff so that it can be validated against the office reading. He will monitor his pressures at home between now and followup with his primary care provider. Because physical therapist finds evidence for right vestibular hypofunction, he will be set up with physical therapy two times per week over the next 2-4 weeks to help resolve this perception of imbalance. Activity will be as tolerated, 2 grams sodium diet.
--- NOTE | 2019-06-23 20:42 | ECHO ---
DATE OF PROCEDURE: 06/22/2019 Date of : 1945 Age: 73 Gender: Male Height: 72 inches Weight: 211 pounds Body surface area: 2.18 meters squared Inpatient: 4 [facility], room 4204 REFERRING PHYSICIAN: Dr. Michael Brian INDICATION: Syncope. MEASUREMENTS: 2D Measurements: RV: 4.4 cm LV: 4.4 cm Septum: 1.3 cm Posterior wall: 1.3 cm Aortic root: 3.7 cm LA: 3.4 cm LVEF: 70% Doppler Measurements: AV: 1.5 meters per second LVOT: 1.4 meters per second LVOT diameter: 2.2 cm MV-E: 62, A: 61, EA ratio: 1 Early mitral deceleration time: 180 milliseconds E prime medial: 5.7, A prime medial: 10.8, E prime lateral: 6.7. Average E/E prime ratio: 10/PCWP: 14.3 mmHg PV: 1.2 meters per second Pulmonary artery acceleration time: 88 milliseconds RVSP: 42 mmHg IVC: 1.6 cm COMMENTS: Normal sinus rhythm without intraventricular conduction disturbance. M-mode and two-dimensional echocardiography was performed with pulsed, continuous wave, color flow and tissue Doppler studies. Mild concentric left ventricular hypertrophy with hyperkinetic wall motion. Left atrial size upper limits of normal with currently normal Doppler assessment of left ventricular (LV) diastolic function. Right heart chamber sizes upper limits of normal to mildly dilated with normal right ventricular free wall motion and Doppler evidence of moderate pulmonary hypertension. Normal inferior vena cava (IVC) size and collapse against an elevated central venous pressure or right heart failure. Three equal size aortic cusps with mildly thickened cusp edges but adequate cusp separation and no more than trace aortic insufficiency. Normal aortic root size. Slightly thickened mitral annulus but normal leaflet thickness and excursion with no posterior systolic buckling and only very mild insufficiency. Normal appearing tricuspid valve with mild insufficiency. No apparent intracardiac mass or pericardial effusion. MTDD
== END 2019-06-23 13:53 | disposition home or self-care (01) ==
LOC: M ED 12:23 → M ED INP 12:24 → ENRESERVDT 06-22 11:01 → ENRESERVTM 06-22 11:01 → M MSPAV 06-22 11:47
PROVIDERS: ADMIT Internal Medicine; ATTEND Family Medicine
DX: H81.91 Unspecified disorder of vestibular function, right ear (principal); E03.9 Hypothyroidism, unspecified; E06.3 Autoimmune thyroiditis; N40.0 Benign prostatic hyperplasia without lower urinary tract symptoms; Z79.899 Other long term (current) drug therapy
CPT/HCPCS: 36415; 70450; 70496; 70498; 70551; 72141; 80053; 81001; 82306; 82550; 82553; 82607; 84439; 84443; 84484; 85025; 93005; 93306; 96374; 96375; 97112; 97116; 97161; 97530; 99285; J1200; Q9967

== ENCOUNTER → 2020-01-04 | Outpatient (REF) | payer OTHER ==
[~2020-01-04] MED LIST changes: +BRONCHW PO; +D 1010004 PO; +FLON1SPR NARES; +OXYB-54 PO
[2020-02-13 21:42] LABS: ALBUMIN 3.7 GM/DL (3.2-5.2); ALT/SGPT 28 U/L (12-78); BILIRUBIN,TOTAL 0.7 MG/DL (0.2-1.0); BLOOD UREA NITROGEN 21 MG/DL (7-18); CALCIUM LEVEL 9.1 MG/DL (8.8-10.2); CARBON DIOXIDE LEVEL 30 MEQ/L (21-32); CHLORIDE LEVEL 109 MEQ/L (98-107); FREE T4 0.99 NG/DL (0.76-1.46); GLOMERULAR FILTRATION RATE > 60.0 (>42); GLUCOSE, FASTING 108 MG/DL (70-100); HEMOGLOBIN A1c 5.3 %; POTASSIUM SERUM 4.4 MEQ/L (3.5-5.1); PTH INTACT 40.9 PG/ML (18.5-88.0); SODIUM LEVEL 144 MEQ/L (136-145); TOTAL PROTEIN 7.6 GM/DL (6.4-8.2)
[2020-02-23 11:15] LABS: BASO # 0.1 10^3/uL (0.0-0.2); BASO % 0.9 % (0.0-1.0); EOS # 0.3 10^3/uL (0.0-0.5); EOS % 3.9 % (0.0-3.0); HEMATOCRIT 44.7 % (42.0-52.0); HEMOGLOBIN 14.9 g/dl (13.5-17.5); LYMPH # 1.9 10^3/uL (1.5-5.0); MEAN CORPUSCULAR HEMOGLOBIN 29.9 pg (27.0-33.0); MEAN CORPUSCULAR HGB CONC 33.3 g/dl (32.0-36.5); MEAN CORPUSCULAR VOLUME 89.8 fl (80.0-96.0); MONO # 0.4 10^3/uL (0.0-0.8); MONO % 6.9 % (0.0-5.0); NEUTROPHILS # 3.7 10^3/uL (1.5-8.5); NEUTROPHILS % 57.8 % (36.0-66.0); PLATELET COUNT, AUTOMATED 165 10^3/uL (150-450); RED BLOOD COUNT 4.98 10^6/uL (4.30-6.10); WHITE BLOOD COUNT 6.3 10^3/uL (4.0-10.0)
== END ==
LOC: M SFHCPLAZ 16:58
PROVIDERS: ATTEND Family Medicine
DX: I10 Essential (primary) hypertension (principal); R73.01 Impaired fasting glucose; E55.9 Vitamin D deficiency, unspecified

== ENCOUNTER → 2020-03-13 | Outpatient (REF) | payer OTHER | LOC: M LAB REF 12:18 | PROVIDERS: ATTEND Nurse Practitioner Family | DX: H60.392 Other infective otitis externa, left ear (principal) ==

== ENCOUNTER 2020-06-13 13:14 | Emergency (ER) | payer OTHER ==
[~2020-06-13] VITALS: Ht 182.9 cm; Wt 103.3 kg
[2020-06-13] MEDS ORDERED: TELM1TAB33 (13:32)
--- NOTE | 2020-06-13 15:44 | REP ---
INDICATION: l ear drumming COMPARISON: 06/21/2019 TECHNIQUE: Axial noncontrast images from the skull base to the thoracic inlet with coronal reformations. This CT examination was performed using the following dose reduction techniques: Automated exposure control, adjustment of mA and/or kv according to the patient's size, and use of iterative reconstruction technique. FINDINGS: Age-related atrophy and microvascular ischemic changes are appreciated. The ventricles and sulci are symmetric. Seo-white differentiation is maintained. There is no evidence for acute intracranial hemorrhage, mass/mass effect, pathology or infarction. No extra-axial fluid collection. Calvarium is intact. Paranasal sinuses and mastoid air cells are clear. IMPRESSION: Age related atrophy and microvascular ischemic changes. No acute intracranial hemorrhage, infarction, or mass/mass effect. <Electronically signed by Hugo Anglin > 06/13/20 [id number]
[2020-06-13 17:01] VITALS: BP 156/90
== END 2020-06-13 17:02 | disposition home or self-care (01) ==
LOC: M ED 13:14
DX: H61.23 Impacted cerumen, bilateral (principal); H93.8X3 Other specified disorders of ear, bilateral; I10 Essential (primary) hypertension; E06.3 Autoimmune thyroiditis; Z79.899 Other long term (current) drug therapy; Z79.890 Hormone replacement therapy; Z87.891 Personal history of nicotine dependence

== ENCOUNTER → 2020-09-28 | Outpatient (REF) | payer OTHER ==
[~2020-09-28] MED LIST changes: +CIPR7.5D5 AD; -CIPRODEX AD; +HYDR-3490 PO; -HYDR25TAB PO; +TELM1TAB33
[2020-09-28 16:18] LABS: ALBUMIN 3.5 GM/DL (3.2-5.2); ALT/SGPT 34 U/L (12-78); BLOOD UREA NITROGEN 19 MG/DL (7-18); CALCIUM LEVEL 9.3 MG/DL (8.8-10.2); CARBON DIOXIDE LEVEL 28 MEQ/L (21-32); CHLORIDE LEVEL 108 MEQ/L (98-107); CHOLESTEROL LEVEL 171 MG/DL (<200); CHOLESTEROL RISK RATIO 4.621 (<5); CPK CREATINE PHOSPHOKINASE 84 U/L (39-308); CREATININE FOR GFR 1.01 MG/DL (0.70-1.30); GLOMERULAR FILTRATION RATE > 60.0 (>42); GLUCOSE, FASTING 103 MG/DL (70-100); HDL CHOLESTEROL 37 MG/DL (>40); LDL CHOLESTEROL 79 MG/DL (<100); MAGNESIUM LEVEL 1.8 MG/DL (1.8-2.4); NON-HDL-C 134 MG/DL; POTASSIUM SERUM 3.8 MEQ/L (3.5-5.1); SODIUM LEVEL 142 MEQ/L (136-145); THYROID STIMULATING HORMONE 0.442 uIU/ML (0.358-3.740); TOTAL PROTEIN 7.1 GM/DL (6.4-8.2); TRIGLYCERIDES LEVEL 274 MG/DL (<150); VITAMIN B12 LEVEL 543 PG/ML (247-911)
== END ==
LOC: M SFHCPLAZ 12:50
PROVIDERS: ATTEND Family Medicine
DX: E53.8 Deficiency of other specified B group vitamins (principal); I10 Essential (primary) hypertension

== ENCOUNTER → 2020-10-10 | Outpatient (CLI) | payer OTHER ==
[2020-10-10 15:36] LABS: IMMUNOGLOBULIN E 71.7 IU/ML (<100); IMMUNOGLOBULIN M 42.4 MG/DL (40-230)
== END ==
LOC: M PLALAB 12:16
PROVIDERS: ATTEND Allergy & Immunology
DX: J30.2 Other seasonal allergic rhinitis (principal); J30.1 Allergic rhinitis due to pollen; H10.45 Other chronic allergic conjunctivitis

== ENCOUNTER → 2021-04-09 | Outpatient (CLI) | payer OTHER ==
[2021-04-09 14:01] LABS: BASO # 0.1 10^3/uL (0.0-0.2); BASO % 0.7 % (0.0-1.0); EOS # 0.2 10^3/uL (0.0-0.5); HEMATOCRIT 43.9 % (42.0-52.0); HEMOGLOBIN 14.9 g/dl (13.5-17.5); LYMPH # 1.7 10^3/uL (1.5-5.0); LYMPH % 22.6 % (24.0-44.0); MEAN CORPUSCULAR HEMOGLOBIN 30.3 pg (27.0-33.0); MEAN CORPUSCULAR HGB CONC 33.9 g/dl (32.0-36.5); MEAN CORPUSCULAR VOLUME 89.2 fl (80.0-96.0); MONO # 0.4 10^3/uL (0.0-0.8); MONO % 5.9 % (2.0-8.0); NEUTROPHILS % 67.3 % (36.0-66.0); PLATELET COUNT, AUTOMATED 167 10^3/uL (150-450); RED BLOOD COUNT 4.92 10^6/uL (4.30-6.10); WHITE BLOOD COUNT 7.4 10^3/uL (4.0-10.0)
[2021-04-09 14:03] LABS: APPEARANCE, URINE CLEAR (CLEAR); BACTERIA, URINE AUTO NEGATIVE (NEGATIVE); BILIRUBIN, URINE AUTO NEGATIVE (NEGATIVE); BLOOD, URINE BLOOD NEGATIVE (NEGATIVE); COLOR, URINE YELLOW (YELLOW); GLUCOSE, URINE (UA) AUTO NEGATIVE (NEGATIVE); KETONE, URINE AUTO NEGATIVE (NEGATIVE); LEUKOCYTE ESTERASE, URINE AUTO NEGATIVE (NEGATIVE); NITRITE, URINE AUTO NEGATIVE (NEGATIVE); PROTEIN, URINE AUTO NEGATIVE (NEGATIVE); RBC, URINE AUTO 1 /HPF (0-3); SPECIFIC GRAVITY URINE AUTO 1.018 (1.002-1.035); SQUAMOUS EPITHELIAL CELL UR AU 0 /HPF (0-6); UROBILINOGEN, URINE AUTO 0.2 mg/dL (0.0-2.0); WBC, URINE AUTO 2 /HPF (0-3)
[2021-04-09 14:56] LABS: ALBUMIN 3.5 GM/DL (3.2-5.2); ALT/SGPT 31 U/L (12-78); BLOOD UREA NITROGEN 22 MG/DL (7-18); CALCIUM LEVEL 9.4 MG/DL (8.8-10.2); CARBON DIOXIDE LEVEL 26 MEQ/L (21-32); CHLORIDE LEVEL 108 MEQ/L (98-107); CREATININE FOR GFR 1.18 MG/DL (0.70-1.30); FERRITIN 52 NG/ML (26-388); FREE T4 1.02 NG/DL (0.76-1.46); GLOMERULAR FILTRATION RATE > 60.0 (>42); GLUCOSE, FASTING 96 MG/DL (70-100); NT-PRO BNP 25 PG/ML (<125); POTASSIUM SERUM 4.6 MEQ/L (3.5-5.1); SODIUM LEVEL 139 MEQ/L (136-145); TOTAL 25(OH) VITAMIN D 29.4 NG/ML (30.0-100.0); TOTAL PROTEIN 7.5 GM/DL (6.4-8.2)
[2021-04-09 15:21] LABS: HEMOGLOBIN A1c 5.3 %
== END ==
LOC: M PLALAB 10:13
PROVIDERS: ATTEND Family Medicine
DX: E55.9 Vitamin D deficiency, unspecified (principal); I10 Essential (primary) hypertension; E53.8 Deficiency of other specified B group vitamins; E03.9 Hypothyroidism, unspecified; Z12.5 Encounter for screening for malignant neoplasm of prostate
CPT/HCPCS: 36415; 80053; 81001; 82306; 82728; 83036; 83525; 83880; 83970; 84439; 84443; 85025; 87086; G0103

== ENCOUNTER → 2021-04-19 | Outpatient (CLI) | payer OTHER | LOC: M LABSMTC 10:39 | PROVIDERS: ATTEND Anesthesiology | DX: Z01.818 Encounter for other preprocedural examination (principal); Z11.52 Encounter for screening for COVID-19 ==

== ENCOUNTER → 2021-04-23 | Outpatient (CLI) | payer OTHER ==
--- NOTE | 2021-04-23 10:39 | REP ---
INDICATION: PRE OP TESTING COMPARISON: Report dated 07/29/2016 TECHNIQUE: PA and lateral. FINDINGS: The mediastinum and cardiac silhouette are normal. The lung santa are clear and without acute consolidation, effusion, or pneumothorax. The skeletal structures are intact and normal. IMPRESSION: No acute cardiopulmonary process. <Electronically signed by Hugo Anglin > 04/23/21 1038
== END ==
LOC: M WUC 09:53
PROVIDERS: ATTEND Urology
DX: Z01.818 Encounter for other preprocedural examination (principal); N21.0 Calculus in bladder

== ENCOUNTER 2021-04-24 06:57 | Day surgery (SDC) | payer OTHER ==
[~2021-04-24] VITALS: Ht 182.9 cm; Wt 102.4 kg
[~2021-04-24 06:57] MED LIST changes: +LR 1,000 ML IV ONE; +ceFAZolin SOD 2 GM in IV 1 EA IV ONE
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
--- OUTSIDE RECORDS SUMMARY | 2021-04-24 07:00 | CCD | Continuity of Care Document ---
Author Author Lucio HERRERA MD Organization Unknown Address [address] [place] [address] Phone [phone] Problems Active Problems Provider Date Inguinal hernia without obstruction AND without gangrene Phliip Pretty M.D. Onset: 06/12/2014 Obstructive sleep apnea syndrome Faye Acevedo A.N.[place] Onset: 10/30/2016 Essential hypertension Miles Cerrato MD Onset: 04/02/2020 Social History Type Date Description Comments Sex Unknown ETOH Use 2 A Week Tobacco Use Start: Unknown End: Unknown Patient is a former smoker QUIT 35 YEARS AGO Recreational Drug Use Denies Drug Use Smoking Status Reviewed: 04/08/21 Patient is a former smoker QU IT 35 YEARS AGO Allergies and adverse reactions Description No Known Drug Allergies Medications Active Medications SIG Qnty Indications Ordering Provide r Date CPAP +9 Tita Herrera MD 02/26 Doxazosin Mesylate 4mg Tablets 1 PO Daily Unknown Alprazolam 0.25mg Tablets 1 tab by mouth Daily 1tabletp Unknown Levothyroxine Sodium 125mcg Tablet s 1 by mouth every day Unknown Telmisartan 20mg Tablets 1 tab by mouth everyday Unknown Restasis 0.05% Emulsion Unknown Fluticasone Propionate Nasal [place] 50mcg/Act Suspension 1 spray each nostril every day Unknown Omeprazole 20mg Capsules DR 1 by mouth every day prn Unknown Immunizations Description No Information Available Vital Signs Date Vital Result Comment 04/08/2021 12:46pm BP Systolic 110 mmHg BP Diastolic 60 mmHg Heart Rate 70 /min O2 % BldC Oximetry 97 % Respiratory Rate 18 /min Height 72 inches 6'0" Weight 233.38 lb BMI (Body Mass Index) 31.6 kg/m2 [place] Body Weight 178 lb Weight 105.859 kg BSA (Body Surface Area) 2.27 m2 04/19/2020 8:56am Height 72 inches 6'0" Weight 228.00 lb BMI (Body Mass Index) 30.9 kg/m2 [place] Body Weight 178 lb Weight 103.421 kg BSA (Body Surface Area) 2.25 m2 Results Description No Information Available Procedures Description No Information Available Medical Devices Description No Information Available Encounters Description No Information Available Assessments Date Code Description Provider 04/08/2021 G47.33 Obstructive sleep apnea (adult) (pediatric) Trell Herrera MD 04/08/2021 J30.9 Allergic rhinitis, unspecified L chucho Herrera MD Plan of Treatment Future Appointment(s):* 04/10/2022 1:00 pm - Trell Herrera MD at [facility] Pulmonary/Thoracic 04/08/2021 - Trell Herrera MD* G47.33 Obstructive sleep apnea (adult) (pediatric) * J30.9 Allergic rhinitis, unspecified * * New Orders:* CPAP/BIPAP Supply, Ordered: 04/08/21 * Follow up:* 12 months...no testing Functional Status Description No Information Available Mental Status Description No Information Available Referrals Description No Information Available
--- OUTSIDE RECORDS SUMMARY | 2021-04-24 07:00 | CCD | Continuity of Care Document ---
Author Author Lucio HERRERA MD Organization Unknown Address [address] [place] [address] Phone [phone] Problems Active Problems Provider Date Inguinal hernia without obstruction AND without gangrene Philip Pretty M.D. Onset: 06/12/2014 Obstructive sleep apnea syndrome Faye Acevedo A.N.[place] Onset: 10/30/2016 Essential hypertension Miles Cerrato MD [...] Restasis 0.05% Emulsion Unknown Fluticasone Propionate Nasal [place] 50mcg/Act Suspension 1 spray each nostril every [...] lb BMI (Body Mass Index) 31.6 kg/m2 [place] Body Weight 178 lb Weight 105.859 kg BSA (Body Surface Area) 2.27 m2 04/19/2020 8:56am Height 72 inches 6'0" Weight 228.00 lb BMI (Body Mass Index) 30.9 kg/m2 [place] Body Weight 178 lb Weight 103.421 kg BSA (Body Surface Area) 2.25 m2 Results Description No Information Available Procedures Date Code Description Status 04/08/2021 77594 Office/Outpatient Established Lo w MDM 20-29 Min Completed Medical Devices Description No Information Available Encounters Type Date Location Provider Dx Diagnosis Office Visit 04/08/2021 1:00p [facility] Pulmonary/Thoracic Jhonny Herrera MD G47.33 Obstructive sleep apnea (adult) (pediatr ic) J30.9 Allergic rhinitis, unspecifi ed Assessments Date Code Description Provider 04/08/2021 G47.33 Obstructive sleep apnea (adult) (pediatric) Trell Herrera MD 04/08/2021 J30.9 Allergic rhinitis, unspecified L chucho Herrera MD Plan of Treatment Future Appointment(s):* 04/10/2022 1:00 pm - Trell Herrera MD at [facility] Pulmonary/Thoracic 04/08/2021 - Trell Herrera MD* G47.33 Obstructive sleep apnea (adult) (pediatric) * J30.9 Allergic rhinitis, unspecified * * Comments:* ~ At this point, he is applauded for his compliance. We updated his mask, filter and supply order. He is up to date on immunizations. He still follows closely with primary.~ He keeps his device clean. He denies any significant mask leak and no reports of any snoring under the mask.~ As long as he is doing well, I will see him in a minimum of a year or, certainly, sooner if problems arise with which we can be of assistance. * Follow up:* 12 months...no testing Functional Status Description No Information Available Mental Status Description No Information Available Referrals Description No Information Available
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
[2021-04-24] MEDS ORDERED: MIDAZOLAM INJ 2MG/2ML VIAL (J2250 PER 1MG) As Ordered ONE (07:01)
[2021-04-24] MEDS ORDERED: LIDOCAINE 2% 100MG/5ML SDV (FOR ANES.) As Ordered ONE (07:01)
[2021-04-24] MEDS ORDERED: dexameTHASONE 4 MG/ML 1ML VIAL (J1100 PER 1MG) As Ordered ONE (07:01)
[2021-04-24] MEDS ORDERED: ONDANSETRON 4MG/2ML VIAL As Ordered ONE (07:01)
[2021-04-24] MEDS ORDERED: propofoL 200 MG/20 ML VIAL As Ordered ONE (07:01)
[2021-04-24] MEDS ORDERED: ACETAMINOPHEN 1000MG 100ML IV BTL (OFIRMEV) (J0131 PER 10MG) As Ordered ONE (07:01)
--- OUTSIDE RECORDS SUMMARY | 2021-04-24 07:01 | CCD ---
Author Author [facility] Organization [facility] Address Unknown Phone Unavailable Care Team Providers Care Bow Maker Gift Wrapping Name Role Phone Rothman, Bibiana RENAL MEDICINE PHYSICIAN Unavailable Unavailable Rothman, Bibiana RENAL MEDICINE PHYSICIAN Unavailable Unavailable Rothman, Bibiana RENAL MEDICINE PHYSICIAN Unavailable Unavailable Rothman, Bibiana RENAL MEDICINE PHYSICIAN Unavailable Unavailable Rothman, Bibiana RENAL MEDICINE PHYSICIAN Unavailable Unavailable Rothman, Bibiana RENAL MEDICINE PHYSICIAN Unavailable Unavailable Rothman, Bibiana RENAL MEDICINE PHYSICIAN Unavailable Unavailable Rothman, Bibiana RENAL MEDICINE PHYSICIAN Unavailable Unavailable Rothman, Bibiana RENAL MEDICINE PHYSICIAN Unavailable Unavailable Rothman, Bibiana RENAL MEDICINE PHYSICIAN Unavailable Unavailable Rothman, Bibiana RENAL MEDICINE PHYSICIAN Unavailable Unavailable Rothman, Bibiana RENAL MEDICINE PHYSICIAN Unavailable Unavailable Rothman, Bibiana RENAL MEDICINE PHYSICIAN Unavailable Unavailable Saqib B Miles CRUZ Unavailable Unavailable Saqib B Miles CRUZ Unavailable Unavailable Saqib B Miles CRUZ Unavailable Unavailable Saqib B Miles CRUZ Unavailable Unavailable Saqib B Miles CRUZ Unavailable Unavailable Saqib B Miles CRUZ Unavailable Unavailable Saqib B Miles CRUZ Unavailable Unavailable Saqib B Miles CRUZ Unavailable Unavailable Saqib B Miles CRUZ Unavailable Unavailable Saqib B Miles CRUZ Unavailable Unavailable Saqib B Miles CRUZ Unavailable Unavailable Saqib B Miles CRUZ Unavailable Unavailable Saqib B Miles CRUZ Unavailable Unavailable Saqib B Miles CRUZ Unavailable Unavailable Saqib B Miles CRUZ Unavailable Unavailable Saqib B Miles CRUZ Unavailable Unavailable Saqib B Miles CRUZ Unavailable Unavailable Naila Cerrato MD Unavailable Unavailable Abriss, B Miles MD Unavailable Unavailable Bartoszewski, Qi Beatriz MS, RPA-C Unavailable Unav ailable Bartoszewski, Qi Beatriz MS, RPA-C Unavailable Unav ailable Bartoszewski, Qi Beatriz MS, RPA-C Unavailable Unav ailable Bartoszewski, Qi Beatriz MS, RPA-C Unavailable Unav ailable Bartoszewski, Qi Beatriz MS, RPA-C Unavailable Unav ailable Bartoszewski, Qi Beatriz MS, RPA-C Unavailable Unav ailable Bartoszewski, Qi Beatriz MS, RPA-C Unavailable Unav ailable Bartoszewski, Qi Beatriz MS, RPA-C Unavailable Unav ailable Bartoszewski, Qi Beatriz MS, RPA-C Unavailable Unav ailable Bartoszewski, Qi Beatriz MS, RPA-C Unavailable Unav ailable Bartoszewski, Qi Beatriz MS, RPA-C Unavailable Unav ailable Bartoszewski, Qi Beatriz MS, RPA-C Unavailable Unav ailable Bartoszewski, Qi Beatriz MS, RPA-C Unavailable Unav ailable Bartoszewski, Qi Beatriz MS, RPA-C Unavailable Unav ailable Bartoszewski, Qi Beatriz MS, RPA-C Unavailable Unav ailable Bartoszewski, Qi Beatriz MS, RPA-C Unavailable Unav ailable Bartoszewski, Qi Beatriz MS, RPA-C Unavailable Unav ailable Bartoszewski, Qi Beatriz MS, RPA-C Unavailable Unav ailable Bartoszewski, Qi Beatriz MS, RPA-C Unavailable Unav ailable Bartoszewski, Qi Beatriz MS, RPA-C Unavailable Unav ailable Bartoszewski, Qi Beatriz MS, RPA-C Unavailable Unav ailable Bartoszewski, Qi Beatriz MS, RPA-C Unavailable Unav ailable Bartoszewski, Qi Beatriz MS, RPA-C Unavailable Unav ailable Bartoszewski, Qi Beatriz MS, RPA-C Unavailable Unav ailable Bartoszewski, Qi Beatriz MS, RPA-C Unavailable Unav ailable Bartoszewski, Qi Beatriz MS, RPA-C Unavailable Unav ailable Bartoszewski, Qi Beatriz MS, RPA-C Unavailable Unav ailable Bartoszewski, Qi Beatriz MS, RPA-C Unavailable Unav ailable Bartoszewski, Qi Beatriz MS, RPA-C Unavailable Unav ailable Bartoszewski, Qi Beatriz MS, RPA-C Unavailable Unav ailable StevenBrian christiansen MD Unavailable Unavailable StevenBrian MD Unavailable Unavailable StevenBrian MD Unavailable Unavailable StevenBrian MD Unavailable Unavailable Steven, Brian Lindsay MD Unavailable Unavailable StevenBrian MD Unavailable Unavailable StevenBrian MD Unavailable Unavailable StevenBrian MD Unavailable Unavailable StevenBrian christiansen MD Unavailable Unavailable StevenBrian christiansen MD Unavailable Unavailable StevenBrian christiansen MD Unavailable Unavailable StevenBrian christiansen MD Unavailable Unavailable StevenBrian christiansen MD Unavailable Unavailable StevenBrian christiansen MD Unavailable Unavailable StevenBrian MD Unavailable Unavailable StevenBrian christiansen MD Unavailable Unavailable StevenBrian christiansen MD Unavailable Unavailable StevenBrian christiansen MD Unavailable Unavailable StevenBrian christiansen MD Unavailable Unavailable StevenBrian christiansen MD Unavailable Unavailable StevenBrian christiansen MD Unavailable Unavailable StevenBrian christiansen MD Unavailable Unavailable StevenBrian christiansen MD Unavailable Unavailable StevenBrian christiansen MD Unavailable Unavailable StevenBrian christiansen MD Unavailable Unavailable StevenBrian christiansen MD Unavailable Unavailable StevenBrian christiansen MD Unavailable Unavailable StevenBrian christiansen MD Unavailable Unavailable StevenBrian christiansen MD Unavailable Unavailable StevenBrian christiansen MD Unavailable Unavailable StevenBrian christiansen MD Unavailable Unavailable StevenBrian christiansen MD Unavailable Unavailable StevenBrian christiansen MD Unavailable Unavailable StevenBrian christiansen MD Unavailable Unavailable StevenBrian christiansen MD Unavailable Unavailable StevenBrian christiansen MD Unavailable Unavailable StevenBrian christiansen MD Unavailable Unavailable StevenBrian christiansen MD Unavailable Unavailable StevenBrian christiansen MD Unavailable Unavailable StevenBrian christiansen MD Unavailable Unavailable StevenBrian christiansen MD Unavailable Unavailable StevenBrian christiansen MD Unavailable Unavailable StevenBrian christiansen MD Unavailable Unavailable StevenBrian christiansen MD Unavailable Unavailable StevenBrian christiansen MD Unavailable Unavailable StevenBrian christiansen MD Unavailable Unavailable StevenBrian christiansen MD Unavailable Unavailable StevenBrian christiansen MD Unavailable Unavailable StevenBrian christiansen MD Unavailable Unavailable Steven, E Deangelo MD Unavailable Unavailable Brian Negron MD Unavailable Unavailable Brian Negron MD Unavailable Unavailable Brian Negron MD Unavailable Unavailable Brian Negron MD Unavailable Unavailable Brian Negron MD Unavailable Unavailable Brian Negron MD Unavailable Unavailable Brian Negron MD Unavailable Unavailable Brian Negron MD Unavailable Unavailable Brian Negron MD Unavailable Unavailable Brian Negron MD Unavailable Unavailable OBEN, T SEAN MD Unavailable Unavailable OBEN, T SEAN MD Unavailable Unavailable OBEN, T SEAN MD Unavailable Unavailable OBEN, T SEAN MD Unavailable Unavailable OBEN, T SEAN MD Unavailable Unavailable OBEN, T SEAN MD Unavailable Unavailable OBEN, T SEAN MD Unavailable Unavailable OBEN, T SEAN MD Unavailable Unavailable OBEN, T SEAN MD Unavailable Unavailable OBEN, T SEAN MD Unavailable Unavailable OBEN, T SEAN MD Unavailable Unavailable OBEN, T SEAN MD Unavailable Unavailable OBEN, T SEAN MD Unavailable Unavailable OBEN, T SEAN MD Unavailable Unavailable OBEN, T SEAN MD Unavailable Unavailable OBEN, T SEAN MD Unavailable Unavailable OBEN, T SEAN MD Unavailable Unavailable OBEN, T SEAN MD Unavailable Unavailable OBEN, T SEAN MD Unavailable Unavailable OBEN, T SEAN MD Unavailable Unavailable OBEN, T SEAN MD Unavailable Unavailable OBEN, T SEAN MD Unavailable Unavailable OBEN, T SEAN MD Unavailable Unavailable OBEN, T SEAN MD Unavailable Unavailable OBEN, T SEAN MD Unavailable Unavailable OBEN, T SEAN MD Unavailable Unavailable OBEN, T SEAN MD Unavailable Unavailable OBEN, T SEAN MD Unavailable Unavailable OBEN, T SEAN MD Unavailable Unavailable OBEN, T SEAN MD Unavailable Unavailable OBEN, T SEAN MD Unavailable Unavailable OBEN, T SEAN MD Unavailable Unavailable OBEN, T SEAN MD Unavailable Unavailable OBEN, T SEAN MD Unavailable Unavailable OBEN, T SEAN MD Unavailable Unavailable OBEN, T SEAN MD Unavailable Unavailable OBEN, T SEAN MD Unavailable Unavailable OBEN, T SEAN MD Unavailable Unavailable OBEN, T SEAN MD Unavailable Unavailable OBEN, T SEAN MD Unavailable Unavailable OBEN, T SEAN MD Unavailable Unavailable OBEN, T ESAN MD Unavailable Unavailable OBEN, T SEAN MD Unavailable Unavailable OBEN, T SEAN MD Unavailable Unavailable OBEN, T SEAN MD Unavailable Unavailable OBEN, T SEAN MD Unavailable Unavailable Celina LUCERO MD Unavailable Unavailable Celina LUCERO MD Unavailable Unavailable Celina LUCERO MD Unavailable Unavailable Celina LUCERO MD Unavailable Unavailable Celina LUCERO MD Unavailable Unavailable Celina LUCERO MD Unavailable Unavailable Celina LUCERO MD Unavailable Unavailable Celina LUCERO MD Unavailable Unavailable Celina LUCERO MD Unavailable Unavailable Celina LUCERO MD Unavailable Unavailable Celina LUCERO MD Unavailable Unavailable Celina LUCERO MD Unavailable Unavailable Ben Herrera MD Unavailable Unavailable Ben Herrera MD Unavailable Unavailable Ben Herrera MD Unavailable Unavailable Ben Herrera MD Unavailable Unavailable Ben Herrera MD Unavailable Unavailable Ben Herrera MD Unavailable Unavailable Ben Herrera MD Unavailable Unavailable Ben Herrera MD Unavailable Unavailable Ben Herrera MD Unavailable Unavailable Ben Herrera MD Unavailable Unavailable Ben Herrera MD Unavailable Unavailable Ben Herrera MD Unavailable Unavailable Ben Herrera MD Unavailable Unavailable Ben Herrera MD Unavailable Unavailable Ben Herrera MD Unavailable Unavailable Ben Herrera MD Unavailable Unavailable Ben Herrera MD Unavailable Unavailable Ben Herrera MD Unavailable Unavailable Ben Herrera MD Unavailable Unavailable Ben Herrera MD Unavailable Unavailable Ben Herrera MD Unavailable Unavailable Ben Herrera MD Unavailable Unavailable Ben Herrera MD Unavailable Unavailable Ben Herrera MD Unavailable Unavailable Ben Herrera MD Unavailable Unavailable Ben Herrera MD Unavailable Unavailable Ben Herrera MD Unavailable Unavailable Ben Herrera MD Unavailable Unavailable Ben Herrera MD Unavailable Unavailable Ben Herrera MD Unavailable Unavailable Ben Herrera MD Unavailable Unavailable Ben Herrera MD Unavailable Unavailable Ben Herrera MD Unavailable Unavailable Ben Herrera MD Unavailable Unavailable Ben Herrera MD Unavailable Unavailable Ben Herrera MD Unavailable Unavailable Ben Herrera MD Unavailable Unavailable Ben Herrera MD Unavailable Unavailable Ben Herrera MD Unavailable Unavailable Ben Herrera MD Unavailable Unavailable Ben Herrera MD Unavailable Unavailable Ben Herrera MD Unavailable Unavailable Ben Herrera MD Unavailable Unavailable Ben Herrera MD Unavailable Unavailable Ben Herrera MD Unavailable Unavailable Ben Herrera MD Unavailable Unavailable Ben Herrera MD Unavailable Unavailable Ben Herrera MD Unavailable Unavailable Ben Herrera MD Unavailable Unavailable Ben Herrera MD Unavailable Unavailable Ben Herrera MD Unavailable Unavailable Ben Herrera MD Unavailable Unavailable Ben Herrera MD Unavailable Unavailable Ben Herrera MD Unavailable Unavailable Re-disclosure Warning The records that you are about to access may contain information from federally-assisted alcohol or drug abuse programs. If such information is present, then the following federally mandated warning applies: This information has been disclosed to you from records protected by federal confidentiality rules (42 CFR part 2). The federal rules prohibit you from making any further disclosure of this information unless further disclosure is expressly permitted by the written consent of the person to whom it pertains or as otherwise permitted by 42 CFR part 2. A general authorization for the release of medical or other information is NOT sufficient for this purpose. The Federal rules restrict any use of the information to criminally investigate or prosecute any alcohol or drug abuse patient.The records that you are about to access may contain highly sensitive health information, the redisclosure of which is protected by Article 27-F of the [facility] Public Health law. If you continue you may have access to information: Regarding HIV / AIDS; Provided by facilities licensed or operated by the [facility] Office of Mental Health; or Provided by the [facility] Office for People With Developmental Disabilities. If such information is present, then the following [facility] mandated warning applies: This information has been disclosed to you from confidential records which are protected by state law. State law prohibits you from making any further disclosure of this information without the specific written consent of the person to whom it pertains, or as otherwise permitted by law. Any unauthorized further disclosure in violation of state law may result in a fine or intermediate sentence or both. A general authorization for the release of medical or other information is NOT sufficient authorization for further disc losure. Allergies and Adverse Reactions Type Description Substance Reaction Status Data Source(s ) No Known Allergies No Known Allergies [facility] Drug Allergy Drug Allergy NKDA MEDENT ([facility]) Family History Family Member Name Family Member Gender Family Member Status Date o f Status Description Data Source(s) Unknown Male Problem [facility]ENT ([facility]) Unknown Unknown Problem [facility] ([facility]) Unknown Male Problem [facility] ) () Unknown Female Problem [facility] ([facility] Encounters Encounter Providers Location Date Indications Data Source(s ) [place] [address] [facility] [address] 04/10/2021 12:00:00 AM EDT eCW1 ([facility]) [place] [address] [facility] [address] 04/09/2021 12:00:00 AM EDT eCW1 ([facility]) Outpatient Attender: Trell Bonner/Sandra fabian 04/08/2021 01:00:00 PM EDT [facility] ([facility] [place] [address] [facility] [address] 04/08/2021 12:00:00 AM EDT eCW1 ([facility]) [place] [address] [facility] [address] 03/13/2021 12:00:00 AM EDT eCW1 ([facility]) [place] [address] [facility] [address] 02/18/2021 12:00:00 AM EDT eCW1 ([facility]) [place] [address] [facility] [address] 02/13/2021 12:00:00 AM EDT eCW1 ([facility]) [place] [address] [facility] [address] 02/12/2021 12:00:00 AM EDT eCW1 ([facility]) [place] [address] [facility] [address] 01/14/2021 12:00:00 AM EDT eCW1 ([facility]) Out[place] [address] [facility] [address] 01/03/2021 12:00:00 AM EDT eCW1 ([facility]) [place] [address] [facility] [address] 12/20/2020 12:00:00 AM EDT eCW1 ([facility]) [place] [address] [facility] [address] 12/14/2020 12:00:00 AM EDT eCW1 ([facility]) Outpatient [address] [facility] [address] 11/27/2020 12:00:00 AM EDT eCW1 ([facility]) Outpatient Attender: Beatriz Lee i MS, RPA-CReferrer: Beatriz Stokes MS, RPA-CConsultant: Deangelo Negron MD 11/09/2020 11:14:00 AM EDT - 11/09/2020 11:24:00 AM EDT [facility] Patient discharged. Outpatient Attender: SEAN LUCERO MDConsultant: Deangelo Negron MD 11/07/2020 02:49:00 PM EDT - 11/07/2020 02:49:00 PM EDT [facility] Outpatient Attender: Beatriz Stokes MS, RPA-CConsultan t: Deangelo Negron MD 11/06/2020 01:49:00 PM EDT - 11/06/2020 02:49:00 PM EDT [facility] Patient discharged. Outpatient Attender: SEAN LUCERO MDConsultant: Deangelo Negron MD 10/30/2020 10:58:00 AM EDT - 10/30/2020 10:58:00 AM EDT [facility] Unknown [address] [facility] [address] 10/17/2020 12:00:00 AM EDT eCW1 ([facility]) Outpatient Attender: SEAN LUCERO MDConsultant: Deangelo Negron MD 10/03/2020 03:43:00 PM EDT - 10/03/2020 03:43:00 PM EDT [facility] Outpatient Attender: Beatriz Stokes MS, RPA-CConsultan t: Deangelo Negron MD 10/01/2020 10:17:00 AM EDT - 10/01/2020 11:17:00 AM EDT [facility] Outpatient Attender: SEAN LUCERO MDConsultant: Deangelo Negron MD 09/26/2020 09:25:00 AM EDT - 09/26/2020 10:25:00 AM EDT [facility] Patient discharged. Unknown [address] [facility] [place] [address] 09/24/2020 12:00:00 AM EDT eCW1 ([facility]) Outpatient Attender: SEAN LUCERO MDConsultant: Deangelo Negron MD 09/04/2020 09:55:00 AM EDT - 09/04/2020 09:55:00 AM EDT [facility] Unknown [address] [facility] [address] 08/17/2020 12:00:00 AM EST eCW1 ([facility]) Outpatient [address] [facility] [address] 08/03/2020 12:00:00 AM EST eCW1 ([facility]) Unknown [address] [facility] [address] 06/25/2020 12:00:00 AM EST eCW1 ([facility]) Office Visit, Est Pt., Level 3 PC [address] [place] [address] 06/15/2020 12:00:00 AM EST eCW1 ([facility]) Unknown [address] [facility] [address] 06/15/2020 12:00:00 AM EST eCW1 ([facility]) Unknown [address] [facility] [address] 06/14/2020 12:00:00 AM EST eCW1 ([facility]) Unknown [address] [facility] [address] 06/13/2020 12:00:00 AM EST eCW1 ([facility]) Unknown [address] [facility] [place] [address] 06/06/2020 12:00:00 AM EST eCW1 ([facility]) Unknown [address] [facility] [place] [address] 05/24/2020 12:00:00 AM EST eCW1 ([facility]) [place] [address] [facility] [address] 04/27/2020 12:00:00 AM EST eCW1 ([facility]) Outpatient Attender: Miles Bonner/Conrado/Norman/Re indl 04/02/2020 09:00:00 AM EDT [facility] Outpatient Attender: Trell Bonner/Conrado/Norman/R eindl 03/29/2020 01:45:00 PM EDT [facility] Unknown [address] [facility] [place] [address] 03/29/2020 12:00:00 AM EDT eCW1 ([facility]) Outpatient Attender: Bibiana Crespo yesika 03/13/2020 10:45:00 AM EDT [facility] ([facility]) Outpatient Attender: Bibiana napoles 03/06/2020 08:10:00 AM EDT [facility] ([facility]) Immunizations Vaccine Date Status Description Data Source(s) COVID-19 VACCINE Pfizer 03/29/2021 12:00:00 AM EDT completed [facility] Vaccine Series Complete: YESThis Data wa s Submitted to [facility]. COVID-19 VACC, MRNA(PFIZER)/PF 03/29/2021 12:00:00 AM EDT completed [facility] COVID-19 VACCINE Pfizer 08/25/2020 12:00:00 AM EDT completed [facility] Vaccine Series Complete: YESThis Data wa s Submitted to [facility]. COVID-19 VACCINE Pfizer 08/04/2020 12:00:00 AM EST completed [facility] Vaccine Series Complete: NOThis Data was Submitted to [facility]. INFLUENZA VACCINE QUADRIVALENT 2019- (65 YR UP)/MF59 C.1/PF 04/05/2020 12:00:00 AM EDT completed [facility] Medications Medication Brand Name Start Date Product Form Dose Route Admi nistrative Instructions Pharmacy Instructions Status Indications Reaction Description Data Source(s) Alprazolam 0.25 MG Oral Tablet ALPRAZOLAM 04/16/2021 12:00:00 AM EST tablet 30 TAKE ONE TABLET BY MOUTH EVERY DAY NE EDED FOR ANXIETY MAXIMUM DAILY DOSE = ONE TABLET TAKE ONE TABLET BY MOUTH EVERY DAY NE EDED FOR ANXIETY MAXIMUM DAILY DOSE = ONE TABLET SOLD: 04/16/2021 [facility] Alprazolam 0.25 MG Oral Tablet [Xanax] Xanax 0.25 MG Xanax 0 .25 MG 04/11/2021 12:00:00 AM EDT 1.0 {tablet} active Xa nax 0.25 MG eCW1 ([facility]) Alprazolam 0.25 MG Oral Tablet [Xanax] Xanax 0.25 MG Xanax 0 .25 MG 04/11/2021 12:00:00 AM EDT 1.0 {tablet} active eCW1 ([facility]) Alprazolam 0.25 MG Oral Tablet [Xanax] Xanax 0.25 MG Xanax 0 .25 MG 04/11/2021 12:00:00 AM EDT 1.0 {tablet} active Xa nax 0.25 MG eCW1 ([facility]) 125 mcg 04/07/2021 12:00:00 AM EDT tablet 30 TAKE ONE TABLET BY MOUTH EVERY MORNING ON AN EMPTY STOMACH TAKE ONE TABLET BY MOUTH EVERY MORNING O N AN EMPTY STOMACH SOLD: 04/08/2021 [facility] 60 mcg (15 mcg x 4)/0.5 mL 03/29/2021 12:00:00 AM EDT [facility] 0 INJECT BY [facility] INJECT BY [facility] SOLD: 03/29/2021 [facility] Alprazolam 0.25 MG Oral Tablet ALPRAZOLAM 03/18/2021 12:00:00 AM EDT tablet 30 TAKE ONE TABLET BY MOUTH EVERY DAY NEEDED ANXIETY, MAX/DAY 1 TABLET TAKE ONE TABLET BY MOUTH EVERY DAY NEEDED ANXIETY, MAX/DAY 1 TABLET SOLD: 03/18/2021 [facility] Alprazolam 0.25 MG Oral Tablet [Xanax] Xanax 0.25 MG Xanax 0 .25 MG 03/14/2021 12:00:00 AM EDT 1.0 {tablet} active Xa nax 0.25 MG eCW1 ([facility]) 4 mg 02/19/2021 12:00:00 AM EDT tablet 90 TAKE ONE TABLET BY MOUTH AT BEDTIME AT 9PM TAKE ONE TABLET BY MOUTH AT BEDTIME AT 9PM SOLD: 02/20/2021 [facility] Alprazolam 0.25 MG Oral Tablet ALPRAZOLAM 02/17/2021 12:00:00 AM EDT tablet 30 TAKE ONE TABLET BY MOUTH EVERY DAY NE EDED FOR ANXIETY MAXIMUM DAILY DOSE = 1 TAKE ONE TABLET BY MOUTH EVERY DAY NE EDED FOR ANXIETY MAXIMUM DAILY DOSE = 1 SOLD: 02/17/2021 [facility] Alprazolam 0.25 MG Oral Tablet [Xanax] Xanax 0.25 MG Xanax 0 .25 MG 02/14/2021 12:00:00 AM EDT 1.0 {tablet} active Xa nax 0.25 MG eCW1 ([facility]) Alprazolam 0.25 MG Oral Tablet [Xanax] Xanax 0.25 MG Xanax 0 .25 MG 02/14/2021 12:00:00 AM EDT 1.0 {tablet} active Xa nax 0.25 MG eCW1 ([facility]) telmisartan 20 MG Oral Tablet TELMISARTAN 02/03/2021 12:00:00 AM EDT tablet 90 TAKE ONE TABLET BY MOUTH EVERY DAY TAKE ONE TABLET BY MOUTH EVERY DAY SOLD: 02/06/2021 [facility] Alprazolam 0.25 MG Oral Tablet ALPRAZOLAM 01/18/2021 12:00:00 AM EDT tablet 30 TAKE ONE TABLET BY MOUTH EVERY DAY NE EDED FOR ANXIETY MAXIMUM DAILY DOSE = 1 TAKE ONE TABLET BY MOUTH EVERY DAY NE EDED FOR ANXIETY MAXIMUM DAILY DOSE = 1 SOLD: 01/19/2021 [facility] Alprazolam 0.25 MG Oral Tablet [Xanax] Xanax 0.25 MG Xanax 0 .25 MG 01/14/2021 12:00:00 AM EDT 1.0 {tablet} active Xa nax 0.25 MG eCW1 ([facility]) Alprazolam 0.25 MG Oral Tablet [Xanax] Xanax 0.25 MG Xanax 0 .25 MG 01/14/2021 12:00:00 AM EDT 1.0 {tablet} active Xa nax 0.25 MG eCW1 ([facility]) Alprazolam 0.25 MG Oral Tablet ALPRAZOLAM 12/20/2020 12:00:00 AM EDT tablet 30 TAKE ONE TABLET BY MOUTH EVERY DAY NE EDED FOR ANXIETY MAXIMUM DAILY DOSE = 1 TABLET TAKE ONE TABLET BY MOUTH EVERY DAY NE EDED FOR ANXIETY MAXIMUM DAILY DOSE = 1 TABLET SOLD: 12/20/2020 [facility] 137 mcg (0.1 %) 12/16/2020 12:00:00 AM EDT aerosol,spray 30 SPRAY ONE SPRAY IN EACH NOSTRIL TWICE A DAY SPRAY ONE SPRAY IN EACH NOSTRIL TWICE A DAY SOLD: 12/16/2020 [facility] 137 mcg (0.1 %) 12/16/2020 12:00:00 AM EDT aerosol,spray 30 SPRAY ONE SPRAY IN EACH NOSTRIL TWICE A DAY SPRAY ONE SPRAY IN EACH NOSTRIL TWICE A DAY SOLD: 01/16/2021 [facility] 50 mcg/actuation 12/07/2020 12:00:00 AM EDT spray,suspension 48 SPRAY ONE SPRAY IN EACH NOSTRIL TWICE A DAY SPRAY ONE SPRAY IN EACH NOSTRIL TWICE A DAY SOLD: 12/16/2020 [facility] Fluticasone propionate 0.05 MG/ACTUAT Metered Dose [place] 50 mcg/actuation FLUTICASONE PROPIONATE 12/07/2020 12:00:00 AM EDT spray,suspension 32 SPRAY ONE SPRAY IN EACH NOSTRIL TWICE A DAY SPRAY ONE SPRAY IN EACH NOSTRIL TWICE A DAY SOLD: 03/16/2021 [facility] Alprazolam 0.25 MG Oral Tablet ALPRAZOLAM 11/21/2020 12:00:00 AM EDT tablet 30 TAKE ONE TABLET BY MOUTH EVERY DAY NE EDED FOR ANXIETY * MAXIMUM DAILY DOSE = 1 TAKE ONE TABLET BY MOUTH EVERY DAY NE EDED FOR ANXIETY * MAXIMUM DAILY DOSE = 1 SOLD: 11/21/2020 [facility] doxycycline hyclate 100 MG Oral Capsule DOXYCYCLINE HYCLATE 11/11/2020 12:00:00 AM EDT capsule 42 TAKE ONE TABLET BY MOUTH TWO TIMES A DAY FOR 21 DAYS TAKE ONE TABLET BY MOUTH TWO TIMES A DAY FOR 21 DAYS SOLD: 11/12/2020 [facility] 5-325 mg 11/09/2020 12:00:00 AM EDT tablet 12 TAKE ONE TABLET BY MOUTH EVERY 6 HOURS NEEDED FR POST OP PAIN MAXIMUM DAILY DOSE = 4 TAKE ONE TABLET BY MOUTH EVERY 6 HOURS NEEDED FR POST OP PAIN MAXIMUM DAILY DOSE = 4 SOLD: 11/12/2020 [facility] 500 mg 10/30/2020 12:00:00 AM EDT tablet 42 TAKE ONE TABLET BY MOUTH TWICE A DAY FOR 21 DAYS TAKE ONE TABLET BY MOUTH TWICE A DAY FOR 21 DAYS SOLD: 10/30/2020 [facility] Ciprofloxacin 500 MG Oral Tablet [Cipro] Cipro 10/30/2020 12:00: 00 AM EDT ORAL active MEDENT ([facility]) Alprazolam 0.25 MG Oral Tablet ALPRAZOLAM 10/23/2020 12:00:00 AM EDT tablet 30 TAKE ONE TABLET BY MOUTH EVERY DAY NE EDED FOR ANXIETY MAXIMUM DAILY DOSE = 1 TAKE ONE TABLET BY MOUTH EVERY DAY NE EDED FOR ANXIETY MAXIMUM DAILY DOSE = 1 SOLD: 10/23/2020 [facility] Alprazolam 0.25 MG Oral Tablet ALPRAZOLAM 09/24/2020 12:00:00 AM EDT tablet 30 TAKE ONE TABLET BY MOUTH EVERY DAY NE EDED FOR ANXIETY MAXIMUM DAILY DOSE = 1 TAKE ONE TABLET BY MOUTH EVERY DAY NE EDED FOR ANXIETY MAXIMUM DAILY DOSE = 1 SOLD: 09/24/2020 [facility] Alprazolam 0.25 MG Oral Tablet ALPRAZOLAM 08/25/2020 12:00:00 AM EDT tablet 30 TAKE ONE TABLET BY MOUTH EVERY DAY NE EDED FOR ANXIETY MAXIMUM DAILY DOSE = 1 TAKE ONE TABLET BY MOUTH EVERY DAY NE EDED FOR ANXIETY MAXIMUM DAILY DOSE = 1 SOLD: 08/25/2020 [facility] 2.5 % 08/15/2020 12:00:00 AM EST cream with perineal kristina licator 28 APPLY TWO TIMES A DAY FOR 5 DAYS WITH FLARES APPLY TWO TIMES A DAY FOR 5 DAYS WITH FL JOSE ROBERTO SOLD: 08/15/2020 [facility] 2.5 % 08/15/2020 12:00:00 AM EST cream with perineal kristina licator 28 APPLY TWO TIMES A DAY FOR 5 DAYS WITH FLARES APPLY TWO TIMES A DAY FOR 5 DAYS WITH FL JOSE ROBERTO SOLD: 01/02/2021 [facility] 4 mg 08/12/2020 12:00:00 AM EST tablet 90 TAKE ONE TABLET BY MOUTH EVERY DAY AT BEDTIME TAKE ONE TABLET BY MOUTH EVERY DAY AT BEDTIME SOLD: 08/14/2020 [facility] 4 mg 08/12/2020 12:00:00 AM EST tablet 90 TAKE ONE TABLET BY MOUTH EVERY DAY AT BEDTIME TAKE ONE TABLET BY MOUTH EVERY DAY AT BEDTIME SOLD: 11/12/2020 [facility] telmisartan 20 MG Oral Tablet TELMISARTAN 08/06/2020 12:00:00 AM EST tablet 90 TAKE ONE TABLET BY MOUTH EVERY DAY TAKE ONE TABLET BY MOUTH EVERY DAY SOLD: 08/07/2020 [facility] telmisartan 20 MG Oral Tablet TELMISARTAN 08/06/2020 12:00:00 AM EST tablet 90 TAKE ONE TABLET BY MOUTH EVERY DAY TAKE ONE TABLET BY MOUTH EVERY DAY SOLD: 11/07/2020 [facility] 125 mcg 08/05/2020 12:00:00 AM EST tablet 30 TAKE ONE TABLET BY MOUTH EVERY MORNING ON AN EMPTY STOMACH TAKE ONE TABLET BY MOUTH EVERY MORNING O N AN EMPTY STOMACH SOLD: 03/10/2021 [facility] 125 mcg 08/05/2020 12:00:00 AM EST tablet 30 TAKE ONE TABLET BY MOUTH EVERY MORNING ON AN EMPTY STOMACH TAKE ONE TABLET BY MOUTH EVERY MORNING O N AN EMPTY STOMACH SOLD: 12/16/2020 [facility] 20 mg 08/05/2020 12:00:00 AM EST capsule,delayed release (DR/EC) 90 TAKE ONE CAPSULE BY MOUTH EVERY MORNING TAKE ONE CAPSULE BY MOUTH EVERY MORNING SOLD: 03/29/2021 [facility] 125 mcg 08/05/2020 12:00:00 AM EST tablet 30 TAKE ONE TABLET BY MOUTH EVERY MORNING ON AN EMPTY STOMACH TAKE ONE TABLET BY MOUTH EVERY MORNING O N AN EMPTY STOMACH SOLD: 09/19/2020 [facility] 20 mg 08/05/2020 12:00:00 AM EST capsule,delayed release (DR/EC) 90 TAKE ONE CAPSULE BY MOUTH EVERY MORNING TAKE ONE CAPSULE BY MOUTH EVERY MORNING SOLD: 08/07/2020 [facility] 125 mcg 08/05/2020 12:00:00 AM EST tablet 30 TAKE ONE TABLET BY MOUTH EVERY MORNING ON AN EMPTY STOMACH TAKE ONE TABLET BY MOUTH EVERY MORNING O N AN EMPTY STOMACH SOLD: 08/07/2020 [facility] 125 mcg 08/05/2020 12:00:00 AM EST tablet 30 TAKE ONE TABLET BY MOUTH EVERY MORNING ON AN EMPTY STOMACH TAKE ONE TABLET BY MOUTH EVERY MORNING O N AN EMPTY STOMACH SOLD: 02/09/2021 [facility] Alprazolam 0.25 MG Oral Tablet ALPRAZOLAM 07/27/2020 12:00:00 AM EST tablet 30 TAKE ONE TABLET BY MOUTH EVERY DAY NE EDED FOR ANXIETY MAXIMUM DAILY DOSE = 1 TAKE ONE TABLET BY MOUTH EVERY DAY NE EDED FOR ANXIETY MAXIMUM DAILY DOSE = 1 SOLD: 07/27/2020 [facility] 125 mcg 07/09/2020 12:00:00 AM EST tablet 30 TAKE ONE TABLET BY MOUTH EVERY MORNING ON AN EMPTY STOMACH TAKE ONE TABLET BY MOUTH EVERY MORNING O N AN EMPTY STOMACH SOLD: 07/11/2020 [facility] 125 mcg 07/09/2020 12:00:00 AM EST tablet 30 TAKE ONE TABLET BY MOUTH EVERY MORNING ON AN EMPTY STOMACH TAKE ONE TABLET BY MOUTH EVERY MORNING O N AN EMPTY STOMACH SOLD: 08/25/2020 [facility] 125 mcg 07/09/2020 12:00:00 AM EST tablet 30 TAKE ONE TABLET BY MOUTH EVERY MORNING ON AN EMPTY STOMACH TAKE ONE TABLET BY MOUTH EVERY MORNING O N AN EMPTY STOMACH SOLD: 11/12/2020 [facility] 125 mcg 07/09/2020 12:00:00 AM EST tablet 30 TAKE ONE TABLET BY MOUTH EVERY MORNING ON AN EMPTY STOMACH TAKE ONE TABLET BY MOUTH EVERY MORNING O N AN EMPTY STOMACH SOLD: 10/11/2020 [facility] Alprazolam 0.25 MG Oral Tablet ALPRAZOLAM 06/26/2020 12:00:00 AM EST tablet 30 TAKE ONE TABLET BY MOUTH EVERY DAY NEEDED ANXIETY M AXIMUM DAILY DOSE = 1 TAKE ONE TABLET BY MOUTH EVERY DAY NEEDED ANXIETY MAXIMUM DAILY DOSE = 1 SOLD: 06/28/2020 [facility] 0.3-0.1 % 06/15/2020 12:00:00 AM EST drops,suspension 7 INSTILL FOUR DROPS IN THE LEFT EAR TWICE A DAY INSTILL FOUR DROPS IN THE LEFT EAR TWICE A DAY SOLD: 06/15/2020 [facility] Ciprofloxacin 3 MG/ML / Dexamethasone 1 MG/ML Otic Suspension [Ciprodex] Ciprodex 0.3-0.1 % Ciprodex 0.3-0.1 % 06/15/2020 12:00:00 AM EST active Ciprodex 0.3-0.1 % eCW1 ([facility]) Ciprofloxacin 3 MG/ML / Dexamethasone 1 MG/ML Otic Suspension [Ciprodex] Ciprodex 0.3-0.1 % Ciprodex 0.3-0.1 % 06/15/2020 12:00:00 AM EST active Ciprodex 0.3-0.1 % eCW1 ([facility]) Ciprofloxacin 3 MG/ML / Dexamethasone 1 MG/ML Otic Suspension [Ciprodex] Ciprodex 0.3-0.1 % Ciprodex 0.3-0.1 % 06/15/2020 12:00:00 AM EST active Ciprodex 0.3-0.1 % eCW1 ([facility]) Ciprofloxacin 3 MG/ML / Dexamethasone 1 MG/ML Otic Suspension [Ciprodex] Ciprodex 0.3-0.1 % Ciprodex 0.3-0.1 % 06/15/2020 12:00:00 AM EST active Ciprodex 0.3-0.1 % eCW1 ([facility]) Carbamide Peroxide 6.5 % K 06/14/2020 12:00:00 AM EST 5.0 {drops} active Carbamide Peroxide 6.5 % eCW1 ([facility]) Carbamide Peroxide 6.5 % K 06/14/2020 12:00:00 AM EST 5.0 {drops} active Carbamide Peroxide 6.5 % eCW1 ([facility]) Carbamide Peroxide 6.5 % K 06/14/2020 12:00:00 AM EST 5.0 {drops} active Carbamide Peroxide 6.5 % eCW1 ([facility]) Carbamide Peroxide 6.5 % K 06/14/2020 12:00:00 AM EST 5.0 {drops} active Carbamide Peroxide 6.5 % eCW1 ([facility]) Carbamide Peroxide 6.5 % UNK 06/14/2020 12:00:00 AM EST 5.0 {drops} active Carbamide Peroxide 6.5 % eCW1 ([facility]) 4 mg 06/06/2020 12:00:00 AM EST tablet 90 TAKE ONE TABLET BY MOUTH AT BEDTIME TAKE ONE TABLET BY MOUTH AT BEDTIME SOLD: 06/10/2020 [facility] Alprazolam 0.25 MG Oral Tablet ALPRAZOLAM 06/02/2020 12:00:00 AM EST tablet 30 TAKE ONE TABLET BY MOUTH EVERY DAY NEEDED ANXIETY M AXIMUM DAILY DOSE = 1 TAKE ONE TABLET BY MOUTH EVERY DAY NEEDED ANXIETY MAXIMUM DAILY DOSE = 1 SOLD: 06/02/2020 [facility] Alprazolam 0.25 MG Oral Tablet ALPRAZOLAM 05/02/2020 12:00:00 AM EST tablet 30 TAKE ONE TABLET BY MOUTH EVERY DAY NEEDED ANXIETY M AXIMUM DAILY DOSE = 1 TAKE ONE TABLET BY MOUTH EVERY DAY NEEDED ANXIETY MAXIMUM DAILY DOSE = 1 SOLD: 05/04/2020 [facility] . UNIT 04/05/2020 12:00:00 AM EDT Injectable 1 RP H ADMINISTERED RPH ADMINISTERED SOLD: 04/05/2020 [facility] Alprazolam 0.25 MG Oral Tablet ALPRAZOLAM 04/04/2020 12:00:00 AM EDT tablet 30 TAKE ONE TABLET BY MOUTH EVERY DAY NE EDED FOR ANXIETY MAXIMUM DAILY DOSE = 1 TABLET TAKE ONE TABLET BY MOUTH EVERY DAY NE EDED FOR ANXIETY MAXIMUM DAILY DOSE = 1 TABLET SOLD: 04/04/2020 [facility] 500 mg 03/21/2020 12:00:00 AM EDT capsule 29 TAKE 2 BY MOUTH IMMEDIATELY THEN 1 FOUR TIMES A DAY UNTIL GONE TAKE 2 BY MOUTH IMMEDIATELY THEN 1 FOUR TIMES A DAY UNTIL GONE SOLD: 03/22/2020 [facility] 1 % 03/14/2020 12:00:00 AM EDT solution 10 APPLY 4 DROPS TO THE LEFT EAR EVERY 6 TO 8 HOURS FOR 7 DAYS DIRECTED APPLY 4 DROPS TO THE LEFT EAR EVERY 6 TO 8 HOURS FOR 7 DAYS DIRECTED SOLD: 03/22/2020 [facility] Clotrimazole 10 MG/ML Topical Solution Clotrimazole 0 12:00:00 AM EDT AURICULAR completed MEDE NT ([facility]) 3.5-10,000-1 mg/mL-unit/mL-% 03/06/2020 12:00:00 AM EDT drop s,suspension 10 INSTILL 4 DROPS INTO AFFECTED EAR(S) THREE TIMES A DAY FOR 7 DAYS INSTILL 4 DROPS INTO AFFECTED EAR(S) THREE TIMES A DAY FOR 7 DAYS SOLD: 03/06/2020 [facility] Alprazolam 0.25 MG Oral Tablet ALPRAZOLAM 03/06/2020 12:00:00 AM EDT tablet 30 TAKE ONE TABLET BY MOUTH EVERY DAY MAXIMUM DAILY DOSE = 1 TAKE ONE TABLET BY MOUTH EVERY DAY MAXIMUM DAILY DOSE = 1 SOLD: 03/06/2020 [facility] Hydrocortisone 10 MG/ML / Neomycin 3.5 M G/ML / Polymyxin B 10026 UNT/ML Otic Suspension Neomycin/Polymyxin/Hydrocortisone (Otic) 03/06/2020 12:00:00 AM EDT completed MEDENT ([facility]) telmisartan 20 MG Oral Tablet TELMISARTAN 03/02/2020 12:00:00 AM EDT tablet 90 TAKE ONE TABLET BY MOUTH EVERY DAY TAKE ONE TABLET BY MOUTH EVERY DAY SOLD: 03/04/2020 [facility] telmisartan 20 MG Oral Tablet TELMISARTAN 03/02/2020 12:00:00 AM EDT tablet 90 TAKE ONE TABLET BY MOUTH EVERY DAY TAKE ONE TABLET BY MOUTH EVERY DAY SOLD: 06/02/2020 [facility] 4 mg 02/01/2020 12:00:00 AM EDT tablet 30 TAKE ONE TABLET BY MOUTH EVERY DAY TAKE ONE TABLET BY MOUTH EVERY DAY SOLD: 04/04/2020 [facility] 4 mg 02/01/2020 12:00:00 AM EDT tablet 30 TAKE ONE TABLET BY MOUTH EVERY DAY TAKE ONE TABLET BY MOUTH EVERY DAY SOLD: 03/06/2020 [facility] 4 mg 02/01/2020 12:00:00 AM EDT tablet 30 TAKE ONE TABLET BY MOUTH EVERY DAY TAKE ONE TABLET BY MOUTH EVERY DAY SOLD: 05/04/2020 [facility] 0.05 % 01/30/2020 12:00:00 AM EDT dropperette 60 INSTILL 1 DROP IN EACH EYE TWO TIMES A DAY INSTILL 1 DROP IN EACH EYE TWO TIMES A DAY SOLD: 10/20/2020 [facility] 0.05 % 01/30/2020 12:00:00 AM EDT dropperette 60 INSTILL 1 DROP IN EACH EYE TWO TIMES A DAY INSTILL 1 DROP IN EACH EYE TWO TIMES A DAY SOLD: 08/20/2020 [facility] 0.05 % 01/30/2020 12:00:00 AM EDT dropperette 60 INSTILL 1 DROP IN EACH EYE TWO TIMES A DAY INSTILL 1 DROP IN EACH EYE TWO TIMES A DAY SOLD: 03/04/2020 [facility] 0.05 % 01/30/2020 12:00:00 AM EDT dropperette 60 INSTILL 1 DROP IN EACH EYE TWO TIMES A DAY INSTILL 1 DROP IN EACH EYE TWO TIMES A DAY SOLD: 09/19/2020 [facility] 125 mcg 01/17/2020 12:00:00 AM EDT tablet 90 TAKE ONE TABLET BY MOUTH EVERY DAY TAKE ONE TABLET BY MOUTH EVERY DAY SOLD: 04/13/2020 [facility] 137 mcg (0.1 %) 11/13/2019 12:00:00 AM EDT aerosol,spray 60 SPRAY ONE TO TWO SPRAYS IN EACH NOSTRIL TWICE A DAY NEEDED SPRAY ONE TO TWO SPRAYS IN EACH NOSTRIL TWICE A DAY NEEDED SOLD: 04/23/2020 [facility] 50 mcg/actuation 11/13/2019 12:00:00 AM EDT spray,suspension 16 SPRAY ONE SPRAY IN EACH NOSTRIL TWICE A DAY SPRAY ONE SPRAY IN EACH NOSTRIL TWICE A DAY SOLD: 05/24/2020 [facility] 50 mcg/actuation 11/13/2019 12:00:00 AM EDT spray,suspension 16 SPRAY ONE SPRAY IN EACH NOSTRIL TWICE A DAY SPRAY ONE SPRAY IN EACH NOSTRIL TWICE A DAY SOLD: 06/26/2020 [facility] 50 mcg/actuation 11/13/2019 12:00:00 AM EDT spray,suspension 16 SPRAY ONE SPRAY IN EACH NOSTRIL TWICE A DAY SPRAY ONE SPRAY IN EACH NOSTRIL TWICE A DAY SOLD: 03/22/2020 [facility] 50 mcg/actuation 11/13/2019 12:00:00 AM EDT spray,suspension 16 SPRAY ONE SPRAY IN EACH NOSTRIL TWICE A DAY SPRAY ONE SPRAY IN EACH NOSTRIL TWICE A DAY SOLD: 04/23/2020 [facility] Insurance Providers Payer name Policy type / Coverage type Policy ID Covered democrat ID Covered democrat's relationship to guajardo Policy Guajardo Plan Information [id number] MEDICARE [id number] SP [id number] [place]OM[place] [id number] WI2 [id number] POMCO [id number] [place]2 [id number] UMR CO [id number] 01 [id number] UMR O [id number] S [id number] MEDICARE PART A -O/P [id number] UMR -PHYSICIAN [id number] UMR -RECURRING [id number] 1 [id number] ANSI-Commercial [id number] [facility] [id number] Family Dependent [id number] r Commercial [id number] Family Dependent [id number] ANSI-Commercial [id number] ANSI-Commercial [id number] [facility] [id number] Family Dependent [id number] r Commercial [id number] Family Dependent [id number] ANSI-Commercial [id number] [facility] [id number] Family Dependent [id number] [facility] Commercial [id number] [id number] Family Dependent [id number] ANSI-Commercial [id number] ANSI-Commercial [id number] ANSI-Commercial [id number] ANSI-Commercial [id number] [facility] [place] [id number] Family Dependent [id number] ANSI-Commercial [id number] ANSI-Commercial [id number] ANSI-Commercial [id number] ANSI-Commercial [id number] ANSI-Commercial [id number] ANSI-Commercial [id number] ANSI-Commercial [id number] ANSI-Commercial [id number] ANSI-Commercial [id number] ANSI-Commercial [id number] ANSI-Commercial [id number] ANSI-Commercial [id number] [facility] [id number] [facility] [id number] ANSI-Commercial [id number] ANSI-Commercial [id number] ANSI-Commercial [id number] ANSI-Commercial [id number] ANSI-Commercial [id number] ANSI-Commercial [id number] ANSI-Commercial [id number] ANSI-Commercial [id number] ANSI-Commercial [id number] [facility] Commercial [id number] Self [id number] [facility] (O) [id number] Family Dependent [id number] ANSI-Commercial [id number] ANSI-Commercial [id number] ANSI-Commercial [id number] [employer] [id number] WI2 [id number] MEDICARE [id number] SP [id number] A POMCO-O/P [id number] 01 [id number] [employer] [id number] Family Dependent [employer] [id number] Family Dependent [employer]OM[employer] PPO P [id number] P [id number] ANSI-Commercial [id number] [facility] [id number] WI2 [id number] UMR -O/P [id number] 01 [id number] [facility] [id number] Problems, Conditions, and Diagnoses Code Display Name Description Problem Type Effective Dates Data Source(s) N200 Calculus of kidney Calculus of kidney Diagnosis 11:14:00 AM EDT [facility] N210 Calculus in bladder Calculus in bladder Diagnosis 0 11/07/2020 02:49:00 PM EDT [facility] N410 Acute prostatitis Acute prostatitis Diagnosis 11/07/2020 02:49:00 PM EDT [facility] N401 Benign prostatic hyperplasia with lower urinary tract symptoms Benign prostatic hyperplasia with lower urinary tract symptoms Diagnosis 11/06/2020 01:49:00 PM EDT [facility] N21.0 30600013 Calculus in bladder Problem 03/26/2021 12:00 :00 AM EDT eCW1 ([facility]) N21.0 Bladder stone Bladder stone Problem 03/05/2021 12:00:00 AM EDT eCW1 ([facility]) N39.0 Urinary tract infectious disease UTI (urinary tract in fection) Problem 03/05/2021 12:00:00 AM EDT eCW1 ([facility]) Z01.818 Pre-procedure evaluation check Preop testing Problem 03/05/2021 12:00:00 AM EDT eCW1 ([facility]) N40.1 Benign prostatic hypertrophy with outflo w obstruction BPH loc w urin obs/LUTS Problem 11/27/2020 12:00:00 AM EDT eCW1 ([facility]) N21.0 Calculus of bladder Bladder stones Problem 11/27/2020 1 2:00:00 AM EDT eCW1 ([facility]) N41.0 Acute prostatitis Acute prostatitis Problem 10/30/2020 12:00:00 AM EDT MEDENT ([facility]) [id number] Essential hypertension Essential hypertension Problem 04/02/2020 12:00:00 AM EDT MEDENT ([facility], ) Surgeries/Procedures Procedure Description Date Indications Data Source(s) OFFICE OUTPATIENT VISIT 15 MINUTES 04/08/2021 12:00:00 AM EDT MEDENT ([facility], ) RMVL IMPACTED CERUMEN SPX 1/BOTH EARS 03/06/2020 12:00 :00 AM EDT MEDENT ([facility]) Results ID Date Data Source [id number] 11/20/2020 09:03:00 PM EDT [facility] Name Value Range Interpretation Code Description Data Terese rce(s) Supporting Document(s) Size [Entitic volume] of Stone 3x4 mm [facility] Multiple pieces received. Dimensions of the largest piecereported. Laboratory comment [Text] in Report Narrative COMMENT [facility] Physician questions regarding Calculi An alysis [facility] at: [phone]. Color of Stone Black [facility] Disclaimer: COMMENT [facility] This test was developed and its performa nce characteristicsdetermined by [facility]. It has not been cleared or approvedby the Food and Drug Administration. Source COMMENT [facility] Not provided Composition COMMENT [facility] Please see comment Weight of Stone 14 mg [facility] Calculus analysis [Interpretation] in Stone COMMENT [facility] Inadequate sample to allow confirmatory testing.Specimen consists of proteinaceous material. No mineralcomponent identified by infrared spectroscopy. Photo COMMENT [facility] Photograph will follow under a separate cover Please note: COMMENT [facility] Calculi report will follow via computer, mail or courierdelivery. Laboratory report . [facility] ID Date Data Source [id number] 11/08/2020 09:40:00 AM EDT [facility] [address] [place] [address] PHONE: [phone] FAX: [phone] Name .................. : WADE Bagley Acct Number.................. : [id number] ROOM. ................. : Number ................... : [id number] Stay type ............. : O/P Discharge Date......... ... : 11/06/20 Admit Date ......... : 11/06/20 Admit Phys .................... : MALIA Date of ....... : 1945 Family Phys ................... : STEVEN LINDSAY Phone .................. : [phone] Age ................................ : 74 Film# .................. .:[id number] Sex ................................. : M Unsigned transcriptions are preliminary reports and do not represent a medical or legal document CT ABD & PELV W/O ORAL W/[place] [id number] COMPLETE:11/06/20 16:03 [facility] [id number] Reason for Exam: R FLANK PAIN,DYSURIA CT OF THE ABDOMEN AND PELVIS WITHOUT CONTRAST: CLINICAL HISTORY: Right flank pain with dysuria. COMPARISON: 12/30/19 FINDINGS: Lung bases: Clear. Liver: Normal contour. No focal lesion on noncontrast imaging. Biliary system: Cholecystectomy without biliary dilatation. Pancreas: Normal. Spleen: Normal. Adrenal glands: Normal. Kidneys: Renal cortical scarring on the right, not significantly changed. Nonobstructive mid-pole calculus on the right is unchanged as well. No hydronephrosis. No ureteral stones. Urinary bladder: Calcified bladder stone, as before. Pelvic organs: Severe prostatomegaly. Bowel: Normal caliber. No wall thickening or edema. Moderate uncomplicated sigmoid diverticulosis. Normal appendix. Peritoneum: No free air, no ascites. Page 1 of 2 [facility] [address] [place] [address] PHONE: [phone] FAX: [phone] Name .................. : WADE Bagley Acct Number.................. : [id number] ROOM. ................. : Number ................... : [id number] Stay type ............. : O/P Discharge Date......... ... : 11/06/20 Admit Date ......... : 11/06/20 Admit Phys .................... : MALIA Date of ....... : 1945 Family Phys ................... : STEVEN LINDSAY Phone .................. : [phone] Age ................................ : 74 Film# .................. .:[id number] Sex ................................. : M Unsigned transcriptions are preliminary reports and do not represent a medical or legal document CT ABD & PELV W/O ORAL W/[place] [id number] COMPLETE:11/06/20 16:03 [facility] [id number] Reason for Exam: R FLANK PAIN,DYSURIA Lymph nodes: No adenopathy. Abdominal wall: No significant hernia. Abdominal aorta: Mildly calcified. 3.4 cm infrarenal abdominal aortic aneurysm, not significantly changed. Inferior vena cava: Unremarkable on noncontrast imaging. Bones: L5 pars defects bilaterally. Moderate multilevel degenerative disc disease. No acute or suspicious osseous abnormality. IMPRESSION: 1.Unchanged right nephrolithiasis and bladder stone. 2. No hydronephrosis. While performing the above CT examination, radiation dose reduction was accomplished utilizing automated exposure control, adjusting of the mA and kV based on the patient's body size and/or the use of imperative reconstructive techniques. CT dose: 1189.3 mGycm Electronically Reviewed and Signed By Alexei Houser MD , 11/08/20 09:40, APM Transcribe Initials: SHIVANI , Transcribe Date: 11/07/20 00:46, Dictation Date: Copy for: LEBRON WOO via fax Copy for: 710 MED REC Page 2 of 2 Name Value Range Interpretation Code Description Data Terese rce(s) Supporting Document(s) ID Date Data Source [id number] 10/30/2020 10:35:00 AM EDT MEDENT ([facility]) Name Value Range Interpretation Code Description Data Terese rce(s) Supporting Document(s) Color of Urine Laboratory test result MEDENT ([facility]) Spec Ulysses 1.015 1.001-1.030 MEDENT ([facility]) Appearance of Urine Laboratory test result MEDENT ([facility]) Leukocytes Laboratory test result MEDENT ([facility]) pH of Urine by Test strip 5 5-9 MEDE NT ([facility]) Nitrate [Presence] in Urine Laboratory test result [facility]ENT ([facility]) Protein [Presence] in Urine by Test strip Laboratory test result [facility] ([facility]) Inhouse Glucose Laboratory test result MED[facility] ([facility]) Ketones [Presence] in Urine by Test strip Laboratory test result [facility] ([facility]) Urobilinogen Laboratory test result MED[facility] ([facility]) Blood type and Indirect antibody screen panel - Blood 50 Above high normal MEDENT ([facility]) Bilirubin.total [Presence] in Urine by Test strip Laboratory test res ult MEDENT ([facility]) ID Date Data Source [id number] 10/02/2020 09:52:00 AM EDT [facility] [address] [place] [address] PHONE: [phone] FAX: [phone] Name .................. : WADE Bagley Acct Number.................. : [id number] ROOM. ................. : Number ................... : [id number] Stay type ............. : O/P Discharge Date......... ... : 10/01/20 Admit Date ......... : 10/01/20 Admit Phys .................... : MALIA Date of ....... : 1945 Family Phys ................... : STEVEN LINDSAY Phone .................. : [phone] Age ................................ : 74 Film# .................. .:[id number] Sex ................................. : M Unsigned transcriptions are preliminary reports and do not represent a medical or legal document ABDOMEN [id number] VIEW [id number] COMPLETE:10/01/20 12:01 ARS 9628 Reason for Exam: MONITORING VINNIE NONOBSTRUCTING RENAL CALC KUB: SINGLE VIEW COMPARISON: 01/03/19 FINDINGS: There is a nonobstructive bowel gas pattern with moderate retained feces. Fecal debris and bowel gas contents partially obscure the kidneys. There are small calculi projecting over the right kidney. There are multiple pelvic calcifications apparently representing phleboliths and other vascular calcifications. The bones are demineralized with degenerative changes. The upper spine angles to the right. IMPRESSION: Right renal calculi. Electronically Reviewed and Signed By Wing Akins MD , 10/02/20 09:52, AML Transcribe Initials: SHIVANI , Transcribe Date: 10/01/20 20:51, Dictation Date: Copy for: LEBRON WOO via fax Copy for: [address] [place] [address] Page 1 of 1 Name Value Range Interpretation Code Description Data Terese rce(s) Supporting Document(s) ID Date Data Source [id number] 09/27/2020 09:57:00 AM EDT [facility] [address] [place] [address] PHONE: [phone] FAX: [phone] Name .................. : WADE Bagley Acct Number.................. : [id number] ROOM. ................. : MR Number ................... : [id number] Stay type ............. : O/P Discharge Date......... ... : 09/26/20 Admit Date ......... : 09/26/20 Admit Phys .................... : OBENFELIX Date of ....... : 1945 Family Phys ................... : STEVEN LINDSAY Phone .................. : [phone] Age ................................ : 74 Film# .................. .:[id number] Sex ................................. : M Unsigned transcriptions are preliminary reports and do not represent a medical or legal document BLADDER [id number] COMPLETE:09/26/20 09:53 [facility] [id number] Reason for Exam: EVAL STATUS BLADDER STONE ON CT 12/2019 ULTRASOUND OF THE BLADDER, 09/26/20: Comparison is made to a previous CT scan from 12/30/2019. FINDINGS: Pre-void bladder volume is 99 cc. Post-void bladder volume is 5 cc. Prostate measures 6.3 x 4.9 x 5.2 cm. There is a mobile calculus identified within the urinary bladder. It measures 0.9 x 1.4 cm in size. Bilateral ureteral jets are noted. IMPRESSION: Bladder calculus measuring 0.9 x 1.4 cm. A 5 cc post-void residual. Examination dictated by MAGGIE Kirk. Examination was reviewed with Lorenzo Walter MD, radiologist at the time of this dictation. Electronically Reviewed and Signed By LORENZO WALTER MD , 09/27/20 09:57, Gabrielle Transcribe Initials: SSR, Transcribe Date: 09/26/20 13:21, Dictation Date: Copy for: JAZMINE ESTRADA via fax Copy for: 710 MED REC Page 1 of 1 Name Value Range Interpretation Code Description Data Terese rce(s) Supporting Document(s) ID Date Data Source [id number] 09/04/2020 08:00:00 AM EDT [facility] ([facility]) Name Value Range Interpretation Code Description Data Terese rce(s) Supporting Document(s) Color of Urine Laboratory test result [facility] ([facility]) Appearance of Urine Laboratory test result [facility] ([facility]) pH of Urine by Test strip 5 5-9 MEDE NT ([facility]) Spec Ulysses 1.025 1.001-1.030 [facility] ([facility]) Leukocytes Laboratory test result [facility] ([facility]) Nitrate [Presence] in Urine Laboratory test result [facility] ([facility]) Protein [Presence] in Urine by Test strip Laboratory test result [facility] ([facility]) Inhouse Glucose Laboratory test result [facility] ([facility]) Urobilinogen Laboratory test result [facility] ([facility]) Ketones [Presence] in Urine by Test strip Laboratory test result [facility] ([facility]) Bilirubin.total [Presence] in Urine by Test strip Laboratory test res ult [facility] ([facility]) Blood type and Indirect antibody screen panel - Blood Laboratory test result [facility] ([facility]) ID Date Data Source [id number] 03/13/2020 10:58:00 AM EDT [facility] ([facility]) Name Value Range Interpretation Code Description Data Terese rce(s) Supporting Document(s) Bacteria identified in Ear by Aerobe culture Laboratory test res ult Abnormal (applies to non-numeric results) [facility] ([facility]) FULL REPORT IN LAB NOTES (eCW and Medent ). NORMAL FABY PRESENT ORGANISM 1: YEAST LIKE ORGANISM QUANTITY OF GROWTH MODERATE ORGANISM 1: YEAST LIKE ORGANISM Procedure Social History Code Duration Value Status Description Data Source(s ) Smoking 04/08/2021 12:00:00 AM EDT Patient is a former smoker completed Patient is a former smoker [facility] ([facility], ) Smoking 04/05/2021 12:00:00 AM EDT Former Smoker completed Former Smoker eCW1 ([facility]) Smoking 04/05/2021 12:00:00 AM EDT Former Smoker completed Former Smoker eCW1 ([facility]) Smoking 04/05/2021 12:00:00 AM EDT Former Smoker completed Former Smoker eCW1 ([facility]) Smoking 03/05/2021 12:00:00 AM EDT Former Smoker completed Former Smoker eCW1 ([facility]) Smoking 01/03/2021 12:00:00 AM EDT Former Smoker completed Former Smoker eCW1 ([facility]) Smoking 01/03/2021 12:00:00 AM EDT Former Smoker completed Former Smoker eCW1 ([facility]) Smoking 01/03/2021 12:00:00 AM EDT Former Smoker completed Former Smoker eCW1 ([facility]) Smoking 01/03/2021 12:00:00 AM EDT Former Smoker completed Former Smoker eCW1 ([facility]) Smoking 01/03/2021 12:00:00 AM EDT Former Smoker completed Former Smoker eCW1 ([facility]) Smoking 11/27/2020 12:00:00 AM EDT Former Smoker completed Former Smoker eCW1 ([facility]) Smoking 11/27/2020 12:00:00 AM EDT Former Smoker completed Former Smoker eCW1 ([facility]) Smoking 11/27/2020 12:00:00 AM EDT Former Smoker completed Former Smoker eCW1 ([facility]) Smoking 10/30/2020 12:00:00 AM EDT Never Smoked A Pipe complet ed Never Smoked A Pipe [facility] ([facility]) Smoking 08/03/2020 12:00:00 AM EST Former Smoker completed Former Smoker eCW1 ([facility]) Smoking 08/03/2020 12:00:00 AM EST Former Smoker completed Former Smoker eCW1 ([facility]) Smoking 08/03/2020 12:00:00 AM EST Former Smoker completed Former Smoker eCW1 ([facility]) Smoking 08/03/2020 12:00:00 AM EST Former Smoker completed Former Smoker eCW1 ([facility]) Smoking 06/15/2020 12:00:00 AM EST Former Smoker completed Former Smoker eCW1 ([facility]) Smoking 06/15/2020 12:00:00 AM EST Former Smoker completed Former Smoker eCW1 ([facility]) Smoking 06/15/2020 12:00:00 AM EST Former Smoker completed Former Smoker eCW1 ([facility]) Smoking 06/15/2020 12:00:00 AM EST Former Smoker completed Former Smoker eCW1 ([facility]) Smoking 03/13/2020 12:00:00 AM EDT Patient is a former smoker completed Patient is a former smoker [facility] ([facility]) Vital Signs ID Date Data Source UNK Name Value Range Interpretation Code Description Data Source(s) Heart rate 70 /min 70 /min [facility] ([facility], ) Respiratory rate 18 /min 18 /min [facility] ( [facility]) Body height 72 [in_i] 72 [in_i] [facility] ([facility]) 6'0" Body weight 233.38 [lb_av] 233.38 [lb_av] [facility] ([facility]) Body mass index (BMI) [Ratio] 31.6 kg/m2 31.6 k g/m2 [facility] ([facility]) Systolic blood pressure 110 mm[Hg] 110 mm[Hg] [facility] ([facility]) Diastolic blood pressure 60 mm[Hg] 60 mm[Hg] [facility] ([facility]) [place] body weight 178 [lb_av] 178 [lb_av] [facility] ([facility]) Body weight 105.859 kg 105.859 kg [facility] ([facility]) Body surface area Derived from formula 2.27 m2 2.27 m2 [facility] ([facility], ) Oxygen saturation in Arterial blood by Pulse oximetry 97 % 97 % [facility] ([facility], ) Body weight 230.8 [lb_av] 230.8 [lb_av] eCW1 ([facility]) Body height 72 [in_i] 72 [in_i] eCW1 ([facility]) Body mass index (BMI) [Ratio] 31.30 kg/m2 31.30 kg/m2 eCW1 ([facility]) Heart rate 67 /min 67 /min eCW1 ([facility]) Respiratory rate 20 /min 20 /min eCW1 ([facility]) Body temperature 98.5 [degF] 98.5 [degF] eCW1 ( [facility]) Systolic blood pressure 130 mm[Hg] 130 mm[Hg] e CW1 ([facility]) Diastolic blood pressure 80 mm[Hg] 80 mm[Hg] eCW1 ([facility]) Body weight 225 [lb_av] 225 [lb_av] eCW1 ([facility]) Body height 72 [in_i] 72 [in_i] eCW1 ([facility]) Body mass index (BMI) [Ratio] 30.51 kg/m2 30.51 kg/m2 eCW1 ([facility]) Heart rate 77 /min 77 /min eCW1 ([facility]) Respiratory rate 19 /min 19 /min eCW1 ([facility]) Body temperature 97.3 [degF] 97.3 [degF] eCW1 ( [facility]) Systolic blood pressure 174 mm[Hg] 174 mm[Hg] e CW1 ([facility]) Diastolic blood pressure 87 mm[Hg] 87 mm[Hg] eCW1 ([facility]) Diastolic blood pressure 73 mm[Hg] 73 mm[Hg] [facility] ([facility]) Heart rate 67 /min 67 /min [facility] ([facility]) Respiratory rate 20 /min 20 /min [facility] ( [facility]) Oxygen saturation in Arterial blood by Pulse oximetry 97 % 97 % [facility] ([facility]) Systolic blood pressure 130 mm[Hg] 130 mm[Hg] M EDENT ([facility]) Body mass index (BMI) [Ratio] 32.0 kg/m2 32.0 k g/m2 [facility] ([facility]) Body surface area Derived from formula 2.29 m2 2.29 m2 [facility] ([facility]) Systolic blood pressure 122 mm[Hg] 122 mm[Hg] M EDENT ([facility]) Diastolic blood pressure 80 mm[Hg] 80 mm[Hg] [facility] ([facility]) Heart rate 86 /min 86 /min [facility] ([facility]) Body temperature 96.7 [degF] 96.7 [degF] [facility] ([facility]) Oxygen saturation in Arterial blood by Pulse oximetry 98 % 98 % [facility] ([facility]) Body weight 236.00 [lb_av] 236.00 [lb_av] MEDEN T ([facility]) Body weight 107.050 kg 107.050 kg [facility] ([facility]) Body height 72 [in_i] 72 [in_i] [facility] ([facility]) 6'0" Body mass index (BMI) [Ratio] 31.92 kg/m2 31.92 kg/m2 W1 ([facility]) Body weight 235.4 [lb_av] 235.4 [lb_av] eCW1 ([facility]) Body height 72 [in_i] 72 [in_i] eCW1 ([facility]) Heart rate 81 /min 81 /min eCW1 ([facility]) Respiratory rate 20 /min 20 /min eCW1 ([facility]) Body temperature 98.1 [degF] 98.1 [degF] W1 ( [facility]) Systolic blood pressure 120 mm[Hg] 120 mm[Hg] e CW1 ([facility]) Diastolic blood pressure 82 mm[Hg] 82 mm[Hg] eCW1 ([facility]) Body weight 233 [lb_av] 233 [lb_av] eCW1 ([facility]) Body height 72 [in_i] 72 [in_i] eCW1 ([facility]) Body mass index (BMI) [Ratio] 31.60 kg/m2 31.60 kg/m2 eCW1 ([facility]) Heart rate 78 /min 78 /min eCW1 ([facility]) Respiratory rate 16 /min 16 /min eCW1 ([facility]) Body temperature 98.2 [degF] 98.2 [degF] eCW1 ( [facility]) Systolic blood pressure 114 mm[Hg] 114 mm[Hg] e CW1 ([facility]) Diastolic blood pressure 72 mm[Hg] 72 mm[Hg] eCW1 ([facility]) Body height 72 [in_i] 72 [in_i] [facility] ([facility], ) 6'0" Body weight 228.00 [lb_av] 228.00 [lb_av] MEDEN T ([facility]) Body mass index (BMI) [Ratio] 30.9 kg/m2 30.9 k g/m2 [facility] ([facility]) [place] body weight 178 [lb_av] 178 [lb_av] MED[facility] T ([facility]) Body weight 103.421 kg 103.421 kg [facility] ([facility]) Body height 72 [in_i] 72 [in_i] [facility] ([facility]) 6'0" Body weight 228.00 [lb_av] 228.00 [lb_av] MEDEN T ([facility]) Body mass index (BMI) [Ratio] 30.9 kg/m2 30.9 k g/m2 [facility] ([facility]) [place] body weight 178 [lb_av] 178 [lb_av] MEDEN T ([facility]) Body weight 103.421 kg 103.421 kg [facility] ([facility]) Body surface area Derived from formula 2.25 m2 2.25 m2 [facility] ([facility]) Body weight 103.421 kg 103.421 kg [facility] ([facility]) Body height 72 [in_i] 72 [in_i] [facility] ([facility]) 6'0" Body weight 228.00 [lb_av] 228.00 [lb_av] MEDEN T ([facility]) Body mass index (BMI) [Ratio] 30.9 kg/m2 30.9 k g/m2 [facility] ([facility]) [place] body weight 178 [lb_av] 178 [lb_av] MEDEN T ([facility]) Systolic blood pressure 110 mm[Hg] 110 mm[Hg] M EDENT ([facility]) Diastolic blood pressure 70 mm[Hg] 70 mm[Hg] [facility] ([facility]) Heart rate 70 /min 70 /min [facility] ([facility]) Oxygen saturation in Arterial blood by Pulse oximetry 98 % 98 % [facility] ([facility]) Room Air Body height 72 [in_i] 72 [in_i] [facility] ([facility]) 6'0" Body weight 233.00 [lb_av] 233.00 [lb_av] MEDEN T ([facility]) Body mass index (BMI) [Ratio] 31.6 kg/m2 31.6 k g/m2 [facility] ([facility]) [place] body weight 178 [lb_av] 178 [lb_av] MEDEN T ([facility]) Body weight 105.689 kg 105.689 kg [facility] ([facility]) Diastolic blood pressure 85 mm[Hg] 85 mm[Hg] [facility] ([facility]) Systolic blood pressure 136 mm[Hg] 136 mm[Hg] M EDENT ([facility], [facility]) Heart rate 71 /min 71 /min [facility] ([facility]) Body temperature 97.8 [degF] 97.8 [degF] [facility] ([facility]) Body weight 225.00 [lb_av] 225.00 [lb_av] MEDEN T ([facility], [facility]) Respiratory rate 12 /min 12 /min [facility] ( [facility]) Body height 72 [in_i] 72 [in_i] [facility] ([facility]) 6'0" Oxygen saturation in Arterial blood by Pulse oximetry 96 % 96 % [facility] ([facility]) Body mass index (BMI) [Ratio] 30.5 kg/m2 30.5 k g/m2 [facility] ([facility]) Body mass index (BMI) [Ratio] 30.5 kg/m2 30.5 k g/m2 [facility] ([facility], [facility]) Diastolic blood pressure 86 mm[Hg] 86 mm[Hg] [facility] ([facility], [facility]) Heart rate 50 /min 50 /min [facility] ([facility], [facility]) Respiratory rate 12 /min 12 /min [facility] ( [facility]) Oxygen saturation in Arterial blood by Pulse oximetry 98 % 98 % [facility] ([facility]) Body temperature 97.8 [degF] 97.8 [degF] [facility] ([facility]) Body weight 225.00 [lb_av] 225.00 [lb_av] MEDEN T ([facility], [facility]) Body height 72 [in_i] 72 [in_i] [facility] ([facility]) 6'0" Systolic blood pressure 132 mm[Hg] 132 mm[Hg] M EDENT ([facility], [facility]) Patient Treatment Plan of Care Planned Activity Planned Date Details Description Data Source (s) Alprazolam 0.25 MG Oral Tablet [Xanax] 04/11/2021 12:00:00 AM EDT eCW1 ([facility]) Alprazolam 0.25 MG Oral Tablet [Xanax] 04/11/2021 12:00:00 AM EDT eCW1 ([facility]) Alprazolam 0.25 MG Oral Tablet [Xanax] 04/11/2021 12:00:00 AM EDT eCW1 ([facility]) Alprazolam 0.25 MG Oral Tablet [Xanax] 03/14/2021 12:00:00 AM EDT eCW1 ([facility]) Alprazolam 0.25 MG Oral Tablet [Xanax] 02/14/2021 12:00:00 AM EDT eCW1 ([facility]) Alprazolam 0.25 MG Oral Tablet [Xanax] 02/14/2021 12:00:00 AM EDT eCW1 ([facility]) Alprazolam 0.25 MG Oral Tablet [Xanax] 01/14/2021 12:00:00 AM EDT eCW1 ([facility]) Alprazolam 0.25 MG Oral Tablet [Xanax] 01/14/2021 12:00:00 AM EDT eCW1 ([facility]) Ciprofloxacin 3 MG/ML / Dexamethasone 1 MG/ML Otic Cassandra pension [Ciprodex] 06/15/2020 12:00:00 AM EST eCW1 ([facility]) Ciprofloxacin 3 MG/ML / Dexamethasone 1 MG/ML Otic [employer]andra pension [Ciprodex] 06/15/2020 12:00:00 AM EST eCW1 ([facility]) Ciprofloxacin 3 MG/ML / Dexamethasone 1 MG/ML Otic [employer]andra pension [Ciprodex] 06/15/2020 12:00:00 AM EST eCW1 ([facility]) Ciprofloxacin 3 MG/ML / Dexamethasone 1 MG/ML Otic [employer] pension [Ciprodex] 06/15/2020 12:00:00 AM EST eCW1 ([facility]) Carbamide Peroxide 6.5 % 06/14/2020 12:00:00 AM EST eCW1 ([facility])
[2021-04-24] MEDS ORDERED: ePHEDrine SULFATE 25 MG/5 ML(5MG/ML) SYRINGE As Ordered ONE (08:37)
[2021-04-24] MEDS ORDERED: fentaNYL 100 MCG/2 ML INJECTION (J3010) IV PRN (09:25)
[2021-04-24] MEDS ORDERED: ACETAMINOPHEN TAB 650MG DOSE (2X325MG) PO PRN (09:25)
[2021-04-24] MEDS ORDERED: LR 1,000 ML IV SCH (09:25)
[2021-04-24] MEDS ORDERED: METOCLOPRAMIDE INJ 10MG/2ML VIAL (J2765 PER 1) IV PRN (09:25)
[2021-04-24] MEDS ORDERED: ONDANSETRON 4MG/2ML VIAL IV PRN (09:25)
--- NOTE | 2021-04-24 09:58 | RO ---
OPERATIVE NOTE DATE OF OPERATION: 04/24/2021 PREOPERATIVE DIAGNOSIS: Bladder stone. POSTOPERATIVE DIAGNOSIS: Bladder stone. PROCEDURE: Cystoscopy, laser cystolitholapaxy. SURGEON: Sterling Black MD HOUSE WORKER: None. ANESTHESIA: General. OPERATIVE INDICATIONS: This is a 75-year-old male who was found to have an approximately 2 to 2.5 cm bladder stone on recent cystoscopy. He is brought to the operating room today for treatment. DESCRIPTION OF PROCEDURE: The patient was brought to the operating room and general anesthesia was induced. Prophylactic antibiotics were infused. He was placed in the dorsal lithotomy position and prepped and draped in the usual sterile fashion. A resectoscope was inserted into the urethral meatus and advanced into the bladder using a visual obturator. Once inside the bladder a large stone was seen. The stone was fragmented into smaller pieces using a 1000 micron laser fiber. All the fragments were drained out of the bladder. Once all the fragments had been removed I checked for hemostasis and hemostasis was good. The bladder was then drained of all fluids. The scope was removed and this marked the conclusion of the procedure. The patient was taken out of the dorsal lithotomy position, awakened from anesthesia and transported to recovery room in stable condition. ESTIMATED BLOOD LOSS: 10 mL. COMPLICATIONS: None. SPECIMEN: Bladder stone fragments . PLAN: The patient will follow up in urology clinic in a few weeks for a postoperative visit. MELANIE
[2021-04-24 10:16] VITALS: BP 133/70
[2021-04-29 14:10] LABS: CA Oxalate Dihy 30 % (.); Ca Ox Monohydrate 70 % (.); Size 6x4 mm (.)
== END 2021-04-24 10:55 | disposition home or self-care (01) ==
LOC: M SDC 06:57
PROVIDERS: ATTEND Urology
DX: N21.0 Calculus in bladder (principal); I10 Essential (primary) hypertension; E03.9 Hypothyroidism, unspecified; K21.9 Gastro-esophageal reflux disease without esophagitis; G47.33 Obstructive sleep apnea (adult) (pediatric); Z79.899 Other long term (current) drug therapy; N40.0 Benign prostatic hyperplasia without lower urinary tract symptoms; Z87.891 Personal history of nicotine dependence
CPT/HCPCS: 52317; 82365; 88300; J0131; J0690; J1100; J2250; J2405

== ENCOUNTER → 2021-10-08 | Outpatient (CLI) | payer OTHER ==
[~2021-10-08] MED LIST changes: -LR 1,000 ML IV ONE; -ceFAZolin SOD 2 GM in IV 1 EA IV ONE
[2021-10-08 15:29] LABS: BASO % 0.7 % (0.0-1.0); EOS # 0.1 10^3/uL (0.0-0.5); EOS % 2.3 % (0.0-3.0); HEMATOCRIT 44.8 % (42.0-52.0); HEMOGLOBIN 15.2 g/dl (13.5-17.5); LYMPH # 1.5 10^3/uL (1.5-5.0); LYMPH % 25.5 % (24.0-44.0); MEAN CORPUSCULAR HEMOGLOBIN 29.9 pg (27.0-33.0); MEAN CORPUSCULAR HGB CONC 33.9 g/dl (32.0-36.5); MONO # 0.4 10^3/uL (0.0-0.8); MONO % 6.5 % (2.0-8.0); NEUTROPHILS # 3.9 10^3/uL (1.5-8.5); NEUTROPHILS % 64.7 % (36.0-66.0); PLATELET COUNT, AUTOMATED 157 10^3/uL (150-450); RED BLOOD COUNT 5.09 10^6/uL (4.30-6.10)
[2021-10-08 15:41] LABS: ALBUMIN 3.9 GM/DL (3.2-5.2); ALT/SGPT 29 U/L (12-78); BILIRUBIN,TOTAL 1.2 MG/DL (0.2-1.0); BLOOD UREA NITROGEN 18 MG/DL (7-18); CALCIUM LEVEL 9.8 MG/DL (8.8-10.2); CARBON DIOXIDE LEVEL 31 MEQ/L (21-32); CHLORIDE LEVEL 106 MEQ/L (98-107); CREATININE FOR GFR 1.17 MG/DL (0.70-1.30); FERRITIN 58 NG/ML (26-388); FREE T4 1.03 NG/DL (0.76-1.46); GLOMERULAR FILTRATION RATE > 60.0 (>42); GLUCOSE, FASTING 100 MG/DL (70-100); LIPASE 173 U/L (73-393); POTASSIUM SERUM 4.6 MEQ/L (3.5-5.1); SODIUM LEVEL 143 MEQ/L (136-145); THYROID STIMULATING HORMONE 0.762 uIU/ML (0.358-3.740); TOTAL PROTEIN 7.6 GM/DL (6.4-8.2)
[2021-10-08 15:48] LABS: HEMOGLOBIN A1c 5.2 %
== END ==
LOC: M PLALAB 13:21
PROVIDERS: ATTEND Family Medicine
DX: K21.9 Gastro-esophageal reflux disease without esophagitis (principal); Z79.899 Other long term (current) drug therapy

== ENCOUNTER → 2021-11-28 | Outpatient (CLI) | payer OTHER ==
[~2021-11-28] MED LIST changes: +E-Z-GAS II EFFERVESCENT PACKET (SODIUM BICARB./CITRIC ACID/SIMETHICONE) As Ordered ONE; +E-Z-HD 98% w/w 340GM SUSP BTL As Ordered ONE; +E-Z-PAQUE 96% w/w SUSP 176GM BTL As Ordered ONE
== END ==
LOC: M RAD 08:17
PROVIDERS: ATTEND Family Medicine
DX: K22.89 Other specified disease of esophagus (principal); Z80.0 Family history of malignant neoplasm of digestive organs

== ENCOUNTER → 2022-04-23 | Outpatient (CLI) | payer OTHER ==
[~2022-04-23] MED LIST changes: -E-Z-GAS II EFFERVESCENT PACKET (SODIUM BICARB./CITRIC ACID/SIMETHICONE) As Ordered ONE; -E-Z-HD 98% w/w 340GM SUSP BTL As Ordered ONE; -E-Z-PAQUE 96% w/w SUSP 176GM BTL As Ordered ONE
[2022-04-23 14:07] LABS: BASO % 0.6 % (0.0-1.0); EOS # 0.2 10^3/uL (0.0-0.5); EOS % 2.4 % (0.0-3.0); HEMOGLOBIN 14.5 g/dl (13.5-17.5); LYMPH # 1.4 10^3/uL (1.5-5.0); LYMPH % 21.2 % (24.0-44.0); MEAN CORPUSCULAR HEMOGLOBIN 29.8 pg (27.0-33.0); MEAN CORPUSCULAR HGB CONC 33.7 g/dl (32.0-36.5); MEAN CORPUSCULAR VOLUME 88.3 fl (80.0-96.0); MONO # 0.4 10^3/uL (0.0-0.8); MONO % 6.4 % (2.0-8.0); NEUTROPHILS # 4.7 10^3/uL (1.5-8.5); NEUTROPHILS % 69.1 % (36.0-66.0); PLATELET COUNT, AUTOMATED 163 10^3/uL (150-450); RED BLOOD COUNT 4.87 10^6/uL (4.30-6.10); WHITE BLOOD COUNT 6.7 10^3/uL (4.0-10.0)
[2022-04-23 15:36] LABS: ALBUMIN 3.7 G/DL (3.2-5.2); ALT/SGPT 20 U/L (7.0-40); BILIRUBIN,TOTAL 0.9 MG/DL (0.3-1.2); BLOOD UREA NITROGEN 20 MG/DL (9-23); CALCIUM LEVEL 9.2 MG/DL (8.3-10.6); CARBON DIOXIDE LEVEL 28 MMOL/L (20-31); CHLORIDE LEVEL 107 MMOL/L (98-107); CHOLESTEROL LEVEL 157 MG/DL (<200); CHOLESTEROL RISK RATIO 4.32 (<5); CREATININE FOR GFR 1.12 MG/DL (0.70-1.30); FREE T4 1.24 NG/DL (0.89-1.76); GLOMERULAR FILTRATION RATE > 60.0 (>42); GLUCOSE, FASTING 108 MG/DL (74-106); HDL CHOLESTEROL 36.3 MG/DL (>40); LDL CHOLESTEROL 91.3 MG/DL (<100); NON-HDL-C 121 MG/DL; POTASSIUM SERUM 4.3 MMOL/L (3.5-5.1); SODIUM LEVEL 144 MMOL/L (136-145); THYROID STIMULATING HORMONE 1.793 uIU/ML (0.55-4.78); TOTAL PROTEIN 6.9 G/DL (5.7-8.2); TRIGLYCERIDES LEVEL 147 MG/DL (<150); VITAMIN B12 LEVEL 526 PG/ML (211-911)
[2022-04-24 07:08] LABS: APOLIPOPROTEIN B/A-1 RATIO 0.7 ratio (0.0-0.7)
== END ==
LOC: M PLALAB 09:09
PROVIDERS: ATTEND Family Medicine
DX: E78.5 Hyperlipidemia, unspecified (principal); E53.8 Deficiency of other specified B group vitamins; Z12.5 Encounter for screening for malignant neoplasm of prostate; E03.9 Hypothyroidism, unspecified
CPT/HCPCS: 36415; 80053; 80061; 82172; 82607; 83880; 84439; 84443; 85025; 85046; G0103

== ENCOUNTER → 2022-05-18 | Outpatient (CLI) | payer OTHER ==
[~2022-05-18] MED LIST changes: +B-12100010 PO; +DICL1GEL3 TOP; +DOXA1TAB67 PO; +FLUTISP; +OMEP40CA5 PO; -TELM1TAB33; +VITMTA PO; +[UNRECOGNIZED DRUG - CODE] PO
== END ==
LOC: M LABSMTC 11:33
PROVIDERS: ATTEND Anesthesiology
DX: Z01.812 Encounter for preprocedural laboratory examination (principal); Z11.52 Encounter for screening for COVID-19

== ENCOUNTER 2022-05-21 12:16 | Day surgery (SDC) | payer OTHER ==
[~2022-05-21] VITALS: Ht 182.9 cm; Wt 98.6 kg
[~2022-05-21 12:16] MED LIST changes: +NS 1,000 ML IV ONE
[2022-05-21 15:00] VITALS: BP 119/64
== END 2022-05-21 15:10 | disposition home or self-care (01) ==
LOC: M OPP 12:16
PROVIDERS: ATTEND Internal Medicine Gastroenterology
DX: Z12.11 Encounter for screening for malignant neoplasm of colon (principal); D12.2 Benign neoplasm of ascending colon; K64.0 First degree hemorrhoids; K57.30 Diverticulosis of large intestine without perforation or abscess without bleeding; K21.00 Gastro-esophageal reflux disease with esophagitis, without bleeding; Z79.51 Long term (current) use of inhaled steroids; Z79.899 Other long term (current) drug therapy; Z99.89 Dependence on other enabling machines and devices; G47.30 Sleep apnea, unspecified; I10 Essential (primary) hypertension; E06.3 Autoimmune thyroiditis; F41.9 Anxiety disorder, unspecified; N40.0 Benign prostatic hyperplasia without lower urinary tract symptoms; Z87.891 Personal history of nicotine dependence; Z87.442 Personal history of urinary calculi

== ENCOUNTER → 2022-11-06 | Outpatient (CLI) | payer OTHER ==
[~2022-11-06] MED LIST changes: +FLUT50SP17; -FLUTISP; -NS 1,000 ML IV ONE
[2022-11-06 14:14] LABS: BASO % 0.6 % (0.0-1.0); EOS # 0.2 10^3/uL (0.0-0.5); EOS % 2.8 % (0.0-3.0); HEMATOCRIT 41.3 % (42.0-52.0); HEMOGLOBIN 14.2 g/dl (13.5-17.5); LYMPH # 1.4 10^3/uL (1.5-5.0); LYMPH % 20.5 % (24.0-44.0); MEAN CORPUSCULAR HEMOGLOBIN 30.7 pg (27.0-33.0); MEAN CORPUSCULAR HGB CONC 34.4 g/dl (32.0-36.5); MEAN CORPUSCULAR VOLUME 89.2 fl (80.0-96.0); MONO # 0.4 10^3/uL (0.0-0.8); MONO % 5.9 % (2.0-8.0); NEUTROPHILS # 4.7 10^3/uL (1.5-8.5); NEUTROPHILS % 69.8 % (36.0-66.0); PLATELET COUNT, AUTOMATED 155 10^3/uL (150-450); RED BLOOD COUNT 4.63 10^6/uL (4.30-6.10); WHITE BLOOD COUNT 6.8 10^3/uL (4.0-10.0)
[2022-11-06 14:23] LABS: HEMOGLOBIN A1c 5.4 % (4.0-6.0)
[2022-11-06 14:44] LABS: ALBUMIN 3.7 G/DL (3.2-5.2); ALKALINE PHOSPHATASE 72 U/L (46-116); ALT/SGPT 28 U/L (7.0-40); AST/SGOT 48 U/L (<34); BILIRUBIN,TOTAL 1.4 MG/DL (0.3-1.2); BLOOD UREA NITROGEN 19 MG/DL (9-23); C REACTIVE PROTEIN QUANTITATIV < 0.40 MG/DL (<1.0); CALCIUM LEVEL 8.5 MG/DL (8.3-10.6); CARBON DIOXIDE LEVEL 28 MMOL/L (20-31); CHLORIDE LEVEL 108 MMOL/L (98-107); CHOLESTEROL LEVEL 96 MG/DL (<200); CHOLESTEROL RISK RATIO 2.62 (<5); CPK CREATINE PHOSPHOKINASE 152 U/L (46-171); GLOMERULAR FILTRATION RATE > 60.0 (>42); GLUCOSE, FASTING 110 MG/DL (74-106); HDL CHOLESTEROL 36.6 MG/DL (>40); LDL CHOLESTEROL 41.6 MG/DL (<100); NON-HDL-C 59.4 MG/DL; POTASSIUM SERUM 4.1 MMOL/L (3.5-5.1); SODIUM LEVEL 142 MMOL/L (136-145); TOTAL PROTEIN 6.8 G/DL (5.7-8.2); TRIGLYCERIDES LEVEL 89 MG/DL (<150)
[2022-11-06 14:46] LABS: FERRITIN 55.6 NG/ML (10.5-307.3)
[2022-11-06 14:47] LABS: TOTAL 25(OH) VITAMIN D 37.2 NG/ML (20.0-100.0)
== END ==
LOC: M PLALAB 09:18
PROVIDERS: ATTEND Family Medicine
DX: R73.01 Impaired fasting glucose (principal); E55.9 Vitamin D deficiency, unspecified; E53.8 Deficiency of other specified B group vitamins; E78.5 Hyperlipidemia, unspecified

== ENCOUNTER → 2022-11-06 | Outpatient (CLI) | payer OTHER ==
[2022-11-06 14:43] LABS: COMPLEMENT C3 153.4 MG/DL (90.0-170.0); IMMUNOGLOBULIN A 214.6 MG/DL (40-350); IMMUNOGLOBULIN M 51.4 MG/DL (50-300)
[2022-11-06 14:44] LABS: COMPLEMENT C4 32.1 MG/DL (12-36)
[2022-11-06 14:46] LABS: IMMUNOGLOBULIN E 28.8 IU/ML (0-378)
[2022-11-09 00:07] LABS: D001-IgE D pteronyssinus <0.10 kU/L (Class 0); E001-IgE Cat Epith/Dander < 0.10 kU/L (Class 0); E005-IgE Dog Dander < 0.10 kU/L (Class 0); G002-IgE Bermuda Grass < 0.10 kU/L (Class 0); M001-IgE Penicillium chrysogen < 0.10 kU/L (Class 0); M002 IgE Cladosporium herbaru < 0.10 kU/L (Class 0); M003 IgE Aspergillus fumigatu < 0.10 kU/L (Class 0); M006-IgE Alternaria alternata < 0.10 kU/L (Class 0); T001-IgE Maple/Box Elder < 0.10 kU/L (Class 0); T003-IgE Common Silver Birch < 0.10 kU/L (Class 0); T006-IgE Cedar, Mountain < 0.10 kU/L (Class 0); T007-IgE Oak, White < 0.10 kU/L (Class 0); T008-IgE Elm, American < 0.10 kU/L (Class 0); T015-IgE Ash, White < 0.10 kU/L (Class 0); T070-IgE White Mulberry < 0.10 kU/L (Class 0); W001-IgE Ragweed, Short < 0.10 kU/L (Class 0); W018-IgE Sheep Sorrel < 0.10 kU/L (Class 0)
[2022-11-10 12:07] LABS: ALPHA 1 ANTITRYPSIN 138 mg/dL (101-187); E003-IGE HORSE EPITHELIA/DAND <0.10 kU/L (Class 0); E004-IGE COW DANDER <0.10 kU/L (Class 0); F002-IgE Milk < 0.10 kU/L (Class 0); F004-IgE Wheat < 0.10 kU/L (Class 0); F013-IgE Peanut < 0.10 kU/L (Class 0); F014-IgE Soybean < 0.10 kU/L (Class 0); F026-IgE Pork < 0.10 kU/L (Class 0); F027-IgE Beef < 0.10 kU/L (Class 0); F245-IgE Egg, Whole < 0.10 kU/L (Class 0); FX02-IgE Food Mix (Sea Foods) Negative (.)
== END ==
LOC: M PLALAB 09:23
PROVIDERS: ATTEND Allergy & Immunology
DX: J30.1 Allergic rhinitis due to pollen (principal); J32.0 Chronic maxillary sinusitis; R05.3 Chronic cough

== ENCOUNTER → 2023-02-12 | Outpatient (CLI) | payer MEDICARE, OTHER ==
[~2023-02-12] MED LIST changes: +DICL100G10 TOP; -DICL1GEL3 TOP; -DOXA4TAB2 PO; +DOXA4TAB77 PO; +MECL-209 PO; -MECL1TAB31 PO
[2023-02-12 18:55] LABS: APPEARANCE, URINE CLEAR (CLEAR); BACTERIA, URINE AUTO NEGATIVE (NEGATIVE); BILIRUBIN, URINE AUTO NEGATIVE (NEGATIVE); BLOOD, URINE BLOOD 1+ (NEGATIVE); COLOR, URINE STRAW (YELLOW); GLUCOSE, URINE (UA) AUTO NEGATIVE (NEGATIVE); KETONE, URINE AUTO NEGATIVE (NEGATIVE); LEUKOCYTE ESTERASE, URINE AUTO NEGATIVE (NEGATIVE); NITRITE, URINE AUTO NEGATIVE (NEGATIVE); PROTEIN, URINE AUTO NEGATIVE (NEGATIVE); RBC, URINE AUTO 0 /HPF (0-3); SPECIFIC GRAVITY URINE AUTO 1.002 (1.002-1.035); SQUAMOUS EPITHELIAL CELL UR AU 0 /HPF (0-6); UROBILINOGEN, URINE AUTO 0.2 mg/dL (0.0-2.0); WBC, URINE AUTO 0 /HPF (0-3)
== END ==
LOC: M PLAIMG 14:01
PROVIDERS: ATTEND Urology
DX: N20.0 Calculus of kidney (principal); N39.0 Urinary tract infection, site not specified

== ENCOUNTER → 2023-06-03 | Outpatient (CLI) | payer MEDICARE, OTHER ==
[~2023-06-03] MED LIST changes: -FLUT50SP17; +FLUTISP; -OXYB5TAB10 PO; +OXYB5TAB11 PO
[2023-06-03 11:55] LABS: BASO # 0.1 10^3/uL (0.0-0.2); BASO % 0.8 % (0.0-1.0); EOS # 0.2 10^3/uL (0.0-0.5); HEMATOCRIT 42.4 % (42.0-52.0); HEMOGLOBIN 14.6 g/dl (13.5-17.5); LYMPH # 1.2 10^3/uL (1.5-5.0); LYMPH % 19.9 % (24.0-44.0); MEAN CORPUSCULAR HEMOGLOBIN 30.4 pg (27.0-33.0); MEAN CORPUSCULAR HGB CONC 34.4 g/dl (32.0-36.5); MEAN CORPUSCULAR VOLUME 88.1 fl (80.0-96.0); MONO # 0.4 10^3/uL (0.0-0.8); MONO % 7.1 % (2.0-8.0); NEUTROPHILS # 4.3 10^3/uL (1.5-8.5); NEUTROPHILS % 68.6 % (36.0-66.0); PLATELET COUNT, AUTOMATED 145 10^3/uL (150-450); RED BLOOD COUNT 4.81 10^6/uL (4.30-6.10); WHITE BLOOD COUNT 6.2 10^3/uL (4.0-10.0)
[2023-06-03 12:13] LABS: HEMOGLOBIN A1c 5.3 % (4.0-6.0)
[2023-06-03 12:48] LABS: ALBUMIN 3.6 G/DL (3.2-5.2); ALKALINE PHOSPHATASE 71 U/L (46-116); ALT/SGPT 17 U/L (7.0-40); AST/SGOT 30 U/L (<34); BLOOD UREA NITROGEN 16 MG/DL (9-23); CALCIUM LEVEL 9.4 MG/DL (8.3-10.6); CARBON DIOXIDE LEVEL 30 MMOL/L (20-31); CHLORIDE LEVEL 107 MMOL/L (98-107); CREATININE FOR GFR 1.04 MG/DL (0.70-1.30); FERRITIN 51.4 NG/ML (10.5-307.3); FREE T4 1.24 NG/DL (0.89-1.76); GLOMERULAR FILTRATION RATE > 60.0 (>42); GLUCOSE, FASTING 99 MG/DL (74-106); POTASSIUM SERUM 4.1 MMOL/L (3.5-5.1); PROSTATIC SPECIFIC AG MONITOR 2.22 NG/ML (< 4.00); SODIUM LEVEL 142 MMOL/L (136-145); TOTAL PROTEIN 6.7 G/DL (5.7-8.2); VITAMIN B12 LEVEL 422 PG/ML (211-911)
== END ==
LOC: M PLALAB 09:39
PROVIDERS: ATTEND Family Medicine
DX: E78.5 Hyperlipidemia, unspecified (principal); R73.01 Impaired fasting glucose; E03.9 Hypothyroidism, unspecified; N41.1 Chronic prostatitis; I10 Essential (primary) hypertension; K76.0 Fatty (change of) liver, not elsewhere classified; Z12.5 Encounter for screening for malignant neoplasm of prostate; N40.1 Benign prostatic hyperplasia with lower urinary tract symptoms

== ENCOUNTER → 2023-10-15 | Outpatient (REF) | payer MEDICARE, OTHER ==
[~2023-10-15] MED LIST changes: -OXYB5TAB11 PO; +OXYB5TAB14 PO
== END ==
LOC: M SFHCPLAZ 17:01
PROVIDERS: ATTEND Family Medicine
DX: E78.5 Hyperlipidemia, unspecified (principal); R73.01 Impaired fasting glucose; E03.9 Hypothyroidism, unspecified; K74.00 Hepatic fibrosis, unspecified

== ENCOUNTER → 2023-12-09 | Outpatient (CLI) | payer MEDICARE, OTHER ==
[2023-12-09 12:18] LABS: INR 1.01; PARTIAL THROMBOPLASTIN TIME 27.5 SECONDS (24.8-34.2)
[2023-12-09 12:30] LABS: ALBUMIN 3.6 G/DL (3.2-5.2); ALKALINE PHOSPHATASE 77 U/L (46-116); ALT/SGPT 22 U/L (7.0-40); AST/SGOT 36 U/L (<34); BILIRUBIN,TOTAL 1.5 MG/DL (0.3-1.2); BLOOD UREA NITROGEN 16 MG/DL (9-23); CARBON DIOXIDE LEVEL 30 MMOL/L (20-31); CHLORIDE LEVEL 108 MMOL/L (98-107); CHOLESTEROL LEVEL 106 MG/DL (<200); CHOLESTEROL RISK RATIO 3.06 (<5); CREATININE FOR GFR 0.99 MG/DL (0.70-1.30); GLOMERULAR FILTRATION RATE > 60.0 (>42); GLUCOSE, FASTING 96 MG/DL (74-106); HDL CHOLESTEROL 34.6 MG/DL (>40); LDL CHOLESTEROL 44.4 MG/DL (<100); NON-HDL-C 71.4 MG/DL; POTASSIUM SERUM 4.1 MMOL/L (3.5-5.1); SODIUM LEVEL 140 MMOL/L (136-145); TOTAL PROTEIN 6.7 G/DL (5.7-8.2); TRIGLYCERIDES LEVEL 135 MG/DL (<150)
[2023-12-09 12:31] LABS: FREE T4 1.38 NG/DL (0.89-1.76); THYROID STIMULATING HORMONE 0.246 uIU/ML (0.55-4.78)
[2023-12-09 12:39] LABS: BASO # 0.1 10^3/uL (0.0-0.2); BASO % 0.8 % (0.0-1.0); EOS # 0.2 10^3/uL (0.0-0.5); EOS % 2.9 % (0.0-3.0); HEMATOCRIT 39.7 % (42.0-52.0); HEMOGLOBIN 13.8 g/dl (13.5-17.5); LYMPH # 1.5 10^3/uL (1.5-5.0); MEAN CORPUSCULAR HEMOGLOBIN 30.5 pg (27.0-33.0); MEAN CORPUSCULAR HGB CONC 34.8 g/dl (32.0-36.5); MEAN CORPUSCULAR VOLUME 87.8 fl (80.0-96.0); MONO # 0.3 10^3/uL (0.0-0.8); MONO % 4.5 % (2.0-8.0); NEUTROPHILS # 4.2 10^3/uL (1.5-8.5); NEUTROPHILS % 67.3 % (36.0-66.0); PLATELET COUNT, AUTOMATED 131 10^3/uL (150-450); RED BLOOD COUNT 4.52 10^6/uL (4.30-6.10); WHITE BLOOD COUNT 6.2 10^3/uL (4.0-10.0)
[2023-12-09 12:48] LABS: HEPATITIS B SURFACE ANTIGEN NEGATIVE (NEGATIVE)
[2023-12-09 12:49] LABS: HEMOGLOBIN A1c 5.2 % (4.0-6.0)
[2023-12-09 13:09] LABS: HEPATITIS C VIRUS ABY INDEX < 0.02 INDEX (<0.8)
== END ==
LOC: M RAD 09:54
PROVIDERS: ATTEND Family Medicine
DX: K74.00 Hepatic fibrosis, unspecified (principal); E78.5 Hyperlipidemia, unspecified; R73.01 Impaired fasting glucose; E03.9 Hypothyroidism, unspecified; K76.0 Fatty (change of) liver, not elsewhere classified; N28.1 Cyst of kidney, acquired; N20.0 Calculus of kidney; Z11.59 Encounter for screening for other viral diseases

== ENCOUNTER → 2024-08-29 | Outpatient (CLI) | payer MEDICARE, OTHER | LOC: M PLAIMG 12:10 | PROVIDERS: ATTEND Family Medicine | DX: M47.816 Spondylosis without myelopathy or radiculopathy, lumbar region (principal); M43.17 Spondylolisthesis, lumbosacral region ==